=== PATIENT | male | born 1955 | race Caucasian/White ===

== ENCOUNTER 2022-04-14 12:14 | Outpatient (CLI) | payer MEDICARE, MEDICAID, SELFPAY ==
--- NOTE | 2022-04-14 | XR_ITS ---
WS: [id number] Cervical spine, AP, odontoid AP, lateral views in flexion, extension and neutral position, 04/14/2022 Clinical Data: CERVICALGIA Comparison: None. Findings: No compression fractures are seen. There is degenerative disc narrowing at C3-C4, C4-C5, C5 -C6 and C6-C7. There is anterior osteoarthritic change from C3 through C7 with loss of the normal paul dotic curvature. There is no prevertebral soft tissue swelling. The odontoid is unremarkable. The sof t tissues of the neck and the lung apices are normal. On flexion and extension there is limitation of motion but no subluxation. XR/XR cervical spine 4-5V [id number] Impression: 1. Multilevel degenerative disc narrowing and osteoarthritis. 2. Negative for subluxation but there is limitation of motion on flexion and ex tension.
== END 2022-04-14 12:15 | disposition home or self-care (01) ==
PROVIDERS: PCP Nurse Practitioner; Visit Provider Family Medicine
DX: M48.02 Spinal stenosis, cervical region (principal); M47.812 Spondylosis without myelopathy or radiculopathy, cervical region
CPT/HCPCS: 72050

== ENCOUNTER 2022-06-09 13:36 | Inpatient (IN) | payer MEDICARE, SELFPAY ==
[2022-06-09 13:48] VITALS: BP 148/93; PULSE 116; RESP 18; TEMP 36.7; O2SAT 98
--- NOTE | 2022-06-09 14:56 | ED_ITS ---
HPI - Nausea/Vomiting/Diarrhea General: Chief complaint: Nausea/Vomiting/Diarrhea Stated complaint: not taking medication Time Seen by Provider: 06/09/22 14:35 Source: patient and other (Home health nurse called and talked to immigration case worker.) Mode of arrival: EMS Limitations: other (Slight confusion) History of Present Illness: See nursing assessment. Patient reports 1 week history of nausea vomiting diarrhea and right upper quadrant abdominal pain. Denies any blood in his stool or emesis. Denies any fever. States he has not been on any recent antibiotics and has had no food poisoning or contaminated water that he knows of. Patient states he is had a home health nurse come by once a week for the last 2 to 3 weeks. When asked why he had a home health nurse, he could not give an answer as to why he is getting weekly home health nurse visits. According to the home health nurse who saw him today, report was that she found the patient with stool around the house and in the carpet. Reportedly his heat was not working as well they thought he was confused and sent to the ER for evaluation. There is also report that he was at [facility] couple weeks ago for gastritis and was sent home. Patient is also had some psychiatric issues in the past couple months. He denies any hallucinations or suicidal ideations at this time. His only complaints today are nausea vomiting diarrhea and right upper quadrant abdominal pain. Past surgical history includes appendectomy and cholecystectomy. Denies any intestinal surgery. States he quit smoking and drinking alcohol years ago. Possible history includes insulin-dependent diabetes mellitus and episodes of diarrhea. Associated nausea: Yes Associated symtoms: Reports fatigue, malaise and nausea; Denies anxiety, change in vision, chest pain, headache(s) or palpitations Review of Systems Const: Reports: fatigue and malaise; Denies: fever(s) or chills Eyes: Denies: change in vision ENMT: Denies: throat pain Card: Denies: chest pain or palpitations Resp: Denies: dyspnea or wheezing GI: Reports: abdominal pain (Right upper quadrant abdominal pain), nausea, vomiting and diarrhea (For approximately 2 weeks.); Denies: hematochezia or melena : Denies: flank pain Musc: Denies: neck pain or back pain Skin/Breast: Denies: rash or pruritus Neuro: Denies: headache(s) or numbness in extremities Psych: Denies: anxiety, depression or panic attacks Joe/Lymph: Denies: enlarged lymph nodes Physical Exam Const: COMMON NORMALS: no acute distress, patient oriented x3, no limitations and well nourished GENERAL APPEARANCE: cooperative HENMT: COMMON NORMALS: normocephalic and atraumatic HEAD & SCALP: normocephalic and atraumatic FACE & SINUS: normal facial exam Eye: COMMON NORMALS: EOMs intact bilaterally Neck/C-Spine: COMMON NORMALS: full ROM, no lymphadenopathy, supple and no meningeal signs GENERAL: Yes normal visual inspection Lymph: LYMPHATIC: no lymphadenopathy noted Chest: COMMONS NORMALS: normal inspection of the chest and normal palpation of entire chest wall CHEST: No Ecchymosis present and No rash Resp: COMMON NORMALS: normal respiratory effort, No retractions and clear to auscultation bilaterally EFFORT & INSPECTION: No respiratory distress AUSCULTATION: clear to auscultation bilaterally Cardio: COMMON NORMALS: regular rhythm and Peripheral pulses 2+ throughout JUGULAR VENOUS DISTENTION: no JVD RATE: tachycardic RHYTHM: regular rhythm PERIPHERAL PULSES: Peripheral pulses 2+ throughout GI: COMMON NORMALS: Normal to inspection, nondistended, normoactive bowel sounds present OTHER: Minimal right upper quad abdominal pain. Normoactive bowel sounds throughout. No hepatosplenomegaly. No pulsatile masses. No bruits. Obese : COMMON NORMALS: Yes no CVA tenderness BLADDER/KIDNEY EXAM: Yes no CVA tenderness Back/Pelvis: COMMON NORMALS: no CVA tenderness Extremity: COMMON NORMALS: normal to inspection, full ROM and capillary refill normal Neuro: COMMON NORMALS: patient oriented x3, CN's II-XII intact bilaterally, no focal motor deficits and no sensory deficits noted MENINGEAL SIGNS: Yes no meningeal signs Psych: COMMON NORMALS: mental status grossly normal and Normal thought process present THOUGHT PROCESS: Normal thought process present Skin: COMMON NORMALS: no rashes or lesions noted and no wounds GENERAL SKIN EXAM: no rashes or lesions noted OTHER: Several new and old ecchymosis to the abdominal wall bilaterally consistent with insulin injections. Course Vital Signs: Vital signs: Vital Signs Temperature 98.0 F 06/09/22 13:48 Pulse Rate 116 H 06/09/22 13:48 Respiratory Rate 18 06/09/22 13:48 Blood Pressure 146/94 06/09/22 17:26 Pulse Oximetry 94 06/09/22 17:26 Oxygen Delivery Me thod 06/09/22 17:26 MDM - Nausea/Vomiting/Diarrhea Medical Decision Making Dehydration, nausea vomiting diarrhea, viral gastroenteritis According to immigration case worker, patient lives alone and does not have any heat in his home. Patient was incontinent of stool at the home. According to the home hea lt nurse, patient is not able to take care of himself at home. Patient only able to void about 50 cc. With the results of the CT scan will place Woodruff catheter. Due to patient's living situation we will ask hospitalist to admit to the hospital overnight to help arrange placement. 1750: Discussed with hospitalist Dr. Yepez. Will place patient in the hospital as observation. Lab Data 06/09/22 15:15 06/09/22 15:15 Radiology Impressions Abdomen/Pelvis CT 06/09/22 16:20 IMPRESSION: 1. Severely distended urinary bladder with an estimated volume of 2100 cc. This could represent a neurogenic bladder or urinary bladder outlet obstruction. Catheterization should be considered. 2. Mild left hydronephrosis with no visible calculus. This is most likely related to the distended urinary bladder. 3. Indeterminate 2.0 cm cortical lesion in the inferior left kidney. Recommend non-emergent MRI without and with contrast or non-emergent CT without and with contrast. MRI is preferred for masses under 1.5 cm. 4. Probable small adenomas in the left adrenal gland. Consider 12 month follow-up adrenal CT. (Reference: Martha) References: Martha TORRES, et al. Management of Incidental Adrenal Masses: A White Paper of the ACR Incidental Findings Committee. J Am Alaina Radiol. 2017;14(8):5954-7002. COMMENTS: Consistent with the [employer]'s Incidental Findings Committee white paper (J Am Alaina Radiol 2018): Any incidental renal lesion less than 1 cm or classified as too small to characterize, or any incidental cystic renal lesion characterized as simple-appearing, is likely benign. No follow-up imaging is recommended for these lesions per consensus recommendations based on imaging criteria. Laboratory Results WBC 7.7 10^3/uL (4.0-10.0) 06/09/22 15:15 RBC 4.54 10^6/uL (4.1-5.3) 06/09/22 15:15 Hgb 13.6 g/dL (11.7-16.6) 06/09/22 15:15 Hct 40.7 % (42.0-52.0) L 06/09/22 15:15 MCV 89.6 fl (80-94) 06/09/22 15:15 MCH 30.0 pg (28.0-34.0) 06/09/22 15:15 MCHC 33.4 g/dL (30.0-36.0) 06/09/22 15:15 RDW 12.4 % (12.1-15.1) 06/09/22 15:15 Plt Count 234 10^3/cmm (130-400) 06/09/22 15:15 MPV 8.8 fL (7.4-10.4) 06/09/22 15:15 Neut % (Auto) 79.6 % 06/09/22 15:15 Lymph % (Auto) 10.1 % 06/09/22 15:15 [place] % (Auto) 8.2 % 06/09/22 15:15 Eos % (Auto) 1.2 % 06/09/22 15:15 Baso % (Auto) 0.5 % 06/09/22 15:15 Neut # (Auto) 6.12 10^3/uL (1.8-7.7) 06/09/22 15:15 Lymph # (Auto) 0.8 10^3/uL (0.8-4.8) 06/09/22 15:15 [place] # (Auto) 0.6 10^3/uL (0.2-0.9) 06/09/22 15:15 Eos # (Auto) 0.1 10^3/uL (0.0-0.8) 06/09/22 15:15 Baso # (Auto) 0.0 10^3/uL (0.0-0.1) 06/09/22 15:15 Nucleated RBC % (auto) 0 % 06/09/22 15:15 Nucleated RBCs # 0.0 /100WBC 06/09/22 15:15 Specimen Type Arterial 06/09/22 14:55 Sample Site Radial, right 06/09/22 14:55 ABG pH 7.50 (7.35-7.45) H 06/09/22 14:55 ABG pCO2 28.2 mmHg (35-45) L 06/09/22 14:55 ABG pO2 98.7 mmHg (80.0-100.0) 06/09/22 14:55 ABG HCO3 21.9 mmol/L (22-26) L 06/09/22 14:55 ABG O2 Saturation 97.7 06/09/22 14:55 ABG Base Excess -0.3 mmol/L (-2.0-2.0) 06/09/22 14:55 [place] Test Pos 06/09/22 14:55 A-a O2 Gradient 1.7 mmHg (5-10) L 06/09/22 14:55 Hematocrit 40.6 % (42-52) L 06/09/22 14:55 Hgb O2 Saturation 96.4 % (95-100) 06/09/22 14:55 Carboxyhemoglobin 0.6 %THgb (0.4-20.1) 06/09/22 14:55 Methemoglobin 0.8 % (0.4-1.5) 06/09/22 14:55 Total Hemoglobin 13.3 g/dL (14-18) L 06/09/22 14:55 Sodium 135.0 mmol/L (131-143) 06/09/22 14:55 Potassium 4.1 mmol/L (3.5-5.0) 06/09/22 14:55 Glucose 315.0 mg/dL (70-115) H 06/09/22 14:55 Ionized Calcium 1.1 mmol/L (1.1-1.4) 06/09/22 14:55 O2 Delivery Device Room air 06/09/22 14:55 FiO2 21.0 % 06/09/22 14:55 Elderly Companion ID glc 06/09/22 14:55 Sodium 134 mmol/L (136-145) L 06/09/22 15:15 Potassium 4.3 mmol/L (3.5-5.1) 06/09/22 15:15 Chloride 97 mmol/L (98-107) L 06/09/22 15:15 Carbon Dioxide 23 mmol/L (22-29) 06/09/22 15:15 Anion Gap 18.3 (5-19) 06/09/22 15:15 BUN 24 mg/dL (8-23) H 06/09/22 15:15 Creatinine 1.0 mg/dL (0.7-1.2) 06/09/22 15:15 GFR Calculation 74.5 mL/min (90-130) L 06/09/22 15:15 Glucose 316 mg/dL (65-115) H 06/09/22 15:15 POC Glucose 309 mg/dL (70-110) H 06/09/22 15:10 Calculated Osmolality 294 mOsm/kg (285-295) 06/09/22 15:15 Calcium 9.0 mg/dL (8.5-10.5) 06/09/22 15:15 Total Bilirubin 0.5 mg/dL (0.15-1.2) 06/09/22 15:15 AST 9 U/L (0-40) 06/09/22 15:15 ALT 27 U/L (0-41) 06/09/22 15:15 Alkaline Phosphatase 119 U/L (40-130) 06/09/22 15:15 Total Protein 6.7 g/dL (6.6-8.7) 06/09/22 15:15 Albumin 4.0 g/dL (3.5-5.2) 06/09/22 15:15 Globulin 2.7 g/dL (1.3-4.6) 06/09/22 15:15 Urine Color Yellow (Yellow) 06/09/22 16:45 Urine Appearance Cloudy (CLEAR) A 06/09/22 16:45 Urine pH 5 (5-7) 06/09/22 16:45 Ur Specific [place] 1.020 (1.005-1.030) 06/09/22 16:45 Urine Protein 1+ (Negative) H 06/09/22 16:45 Urine Glucose (UA) 4+ (Normal) H 06/09/22 16:45 Urine Ketones 2+ (Negative) H 06/09/22 16:45 Urine Blood 2+ (Negative) H 06/09/22 16:45 Urine Nitrate Negative (Negative) 06/09/22 16:45 Urine Bilirubin Neg (Negative) 06/09/22 16:45 Urine Urobilinogen Neg mg/dL (Negative) 06/09/22 16:45 Ur Leukocyte Esterase Negative (Negative) 06/09/22 16:45 Urine RBC Rare /hpf (0-2) 06/09/22 16:45 Urine WBC 0-4 /hpf (0-5) H 06/09/22 16:45 Ur Squamous Epith Cells Rare /hpf (0-5) 06/09/22 16:45 Amorphous Sediment Not Reportable 06/09/22 16:45 Urine Bacteria 4+ /hpf (NONE) H 06/09/22 16:45 Influenza Type A Ag negative (Negative) 06/09/22 16:00 Influenza Type B Ag negative (Negative) 06/09/22 16:00 SARS-CoV-2 Ag (Rapid) negative (Negative) 06/09/22 16:[address] Abd/Pel: Radiologist's impression: PROCEDURE INFORMATION: Exam: CT Abdomen And Pelvis With Contrast Exam date and time: 06/09/2022 5:00 PM Age: 66 years old Clinical indication: Nausea; Abdominal pain; Generalized; Prior surgery; Surgery date: 6+ months; Surgery type: Gb, appx; Additional info: Ruq abd pain; N/v/ TECHNIQUE: Imaging protocol: Computed tomography of the abdomen and pelvis with contrast. Radiation optimization: All CT scans at this facility use at least one of these dose optimization techniques: automated exposure control; mA and/or kV adjustment per patient size (includes targeted exams where dose is matched to clinical indication); or iterative reconstruction. Contrast material: OMNIPAQUE 350; Contrast volume: 95 ml; Contrast route: INTRAVENOUS (IV);? COMPARISON: No relevant prior studies available. RADIATION DOSE METRICS: Total DLP (mGy-cm): 975.6 FINDINGS: Liver: Normal. No mass. Gallbladder and bile ducts: Cholecystectomy. The bile ducts are normal. Pancreas: Atrophic pancreatic tail. Spleen: Normal. No splenomegaly. Adrenal glands: Multiple small nodules in the left adrenal gland, the largest measuring 1.2 cm with Hounsfield units measuring 41. The right adrenal is normal. Kidneys and ureters: Round hypodensity in the superior left kidney is too small to characterize but is most likely a cyst. 2.0 cm cortical lesion in the inferior left kidney has a density of 60 Hounsfield units. Mild left hydronephrosis. Mild columning of the left ureter. No calculus visualized. The right kidney and collecting system are unremarkable. Stomach and bowel: 1.4 cm intraluminal fat density lipoma in the proximal sigmoid colon. The colon is otherwise unremarkable. The stomach and small bowel are unremarkable. No wall thickening or obstruction. Appendix:? The appendix is absent. Intraperitoneal space: Unremarkable. No free air. No significant fluid collection. Vasculature: Arterial calcifications. No aneurysm. Lymph nodes: Unremarkable. No enlarged lymph nodes. Urinary bladder: Severely distended urinary bladder measuring 19.9 cm in length and with an estimated volume of 2100 cc. No wall thickening. Reproductive: The prostate is normal in size. Bones/joints: Leftward curvature of the lumbar spine. Degenerative changes of the spine. No fracture identified. Soft tissues: Fat containing umbilical hernia. CT/CT abdomen pelvis w con* [id number] IMPRESSION: 1. Severely distended urinary bladder with an estimated volume of 2100 cc.? This could represent a neurogenic bladder or urinary bladder outlet obstruction. Catheterization should be considered. 2. Mild left hydronephrosis with no visible calculus.? This is most likely related to the distended urinary bladder. 3. Indeterminate 2.0 cm cortical lesion in the inferior left kidney. Recommend non-emergent MRI without and with contrast or non-emergent CT without and with contrast. MRI is preferred for masses under 1.5 cm. 4. Probable small adenomas in the left adrenal gland. Consider 12 month follow-up adrenal CT. (Reference: Martha) ? References: Martha TORRES, et al. Management of Incidental Adrenal Masses: A White Paper of the ACR Incidental Findings Committee. J Am Alaina Radiol. 2017;14(8):0096-8383. ? COMMENTS: Consistent with the [employer]'s Incidental Findings Committee white paper (J Am Alaina Radiol 2018): Any incidental renal lesion less than 1 cm or classified as too small to characterize, or any incidental cystic renal lesion characterized as simple-appearing, is likely benign. No follow-up imaging is recommended for these lesions per consensus recommendations based on imaging criteria. ? Dictated By: Neil Spencer Signed By: Neil Spencer Signed Date/Time: 06/09/22 0402 ABG Data ABG Interpretation 1: ABG results: No acidosis. pH is normal. Glucose 315 Discharge Plan Discharge Patient Disposition: Placed in Observation Clinical Impression: Gastroenteritis, Dehydration, Type 2 diabetes mellitus with hyperglycemia, with long-term current use of insulin, Acute urinary retention Coding Level of Care Code ED Repairer Evaporator for Chg Fwd History Comprehensive Exam Comprehensive Medical Decision Making Moderate Complexity
[2022-06-09 15:05] LABS: ABG PCO2 28.2 mmHg (35-45); Alveolar-Arterial Oxygen Gradi 1.7 mmHg (5-10); Arterial Blood Gas Hematocrit 40.6 % (42-52); Base Excess ABG -0.3 mmol/L (-2.0-2.0); Blood Gas Allen Test Pos; Blood Gas Operator Identificat glc; Blood Gas Sample Site Radial, right; Blood Gas Sample Type Arterial; Carboxyhemoglobin 0.6 %THgb (0.4-20.1); HCO3 ABG 21.9 mmol/L (22-26); HGB O2 Sat 96.4 % (95-100); Ionized Calcium Level - ABG 1.1 mmol/L (1.1-1.4); Methemoglobin 0.8 % (0.4-1.5); Oxygen Device ROOM AIR; Oxygen Saturation ABG 97.7; PO2 ABG 98.7 mmHg (80.0-100.0); Potassium Level - ABG 4.1 mmol/L (3.5-5.0); Total Hemoglobin 13.3 g/dL (14-18)
[2022-06-09] MEDS: sodium chloride 0.9% 1,000 ML 999 ML IV ×2 (15:12→17:13)
[2022-06-09] MEDS: ondansetron 2 mg/ML SDV 2 mL 4 MG IVP (15:12)
[2022-06-09 15:17] LABS: Glucose Point of Care 309 mg/dL (70-110)
--- NOTE | 2022-06-09 15:18 | PC.PHAR ---
pt states he takes care of his own medications but states he is unsure of all the names of his medications-pt did verify how much insulin he uses-[facility] states the pt was on aripiprazole 15mg daily states was changed to 10mg daily on 06/02/22-[facility] states the pts hydralazine 10mg q12h was dced on 05/18/[address] sweetie tian [phone]-notes are made in the pharmacy comments
[2022-06-09 15:40] LABS: Basophils % 0.5 %; Eosinophils # 0.1 10^3/uL (0.0-0.8); Eosinophils % 1.2 %; Hematocrit 40.7 % (42.0-52.0); Hemoglobin 13.6 g/dL (11.7-16.6); Lymphocytes # 0.8 10^3/uL (0.8-4.8); Lymphocytes % 10.1 %; Mean Corpuscular HGB Conc 33.4 g/dL (30.0-36.0); Mean Corpuscular Volume 89.6 fl (80-94); Mean Platelet Volume 8.8 fL (7.4-10.4); Monocytes # 0.6 10^3/uL (0.2-0.9); Monocytes % 8.2 %; Neutrophils # 6.12 10^3/uL (1.8-7.7); Neutrophils % 79.6 %; Nucleated Red Blood Cells % 0 %; Platelet Count 234 10^3/cmm (130-400); Red Blood Count 4.54 10^6/uL (4.1-5.3); Red Cell Distribution Width 12.4 % (12.1-15.1); White Blood Count 7.7 10^3/uL (4.0-10.0)
[2022-06-09] MEDS: insulin regular-human 100 units/1 mL 4 UNIT IVP (15:52)
[2022-06-09 15:56] LABS: Alanine Aminotransferase 27 U/L (0-41); Alkaline Phosphatase 119 U/L (40-130); Anion Gap 18.3 (5-19); Aspartate Amino Transferase 9 U/L (0-40); Blood Urea Nitrogen 24 mg/dL (8-23); Carbon Dioxide 23 mmol/L (22-29); Chloride 97 mmol/L (98-107); Globulin 2.7 g/dL (1.3-4.6); Glomerular Filtration Rate 74.5 mL/min (90-130); Glucose 316 mg/dL (65-115); Osmolality Calculated 294 mOsm/kg (285-295); Potassium 4.3 mmol/L (3.5-5.1); Sodium 134 mmol/L (136-145); Total Bilirubin 0.5 mg/dL (0.15-1.2); Total Protein 6.7 g/dL (6.6-8.7)
[2022-06-09 15:57] VITALS: BP 157/81; O2SAT 97
--- NOTE | 2022-06-09 16:20 | CTR_ITS ---
PROCEDURE INFORMATION: Exam: CT Abdomen And Pelvis With Contrast Exam date and time: 06/09/2022 5:00 PM Age: 66 years old Clinical indication: Nausea; Abdominal pain; Generalized; Prior surgery; Surgery date: 6+ months; Surgery type: Gb, appx; Additional info: Ruq abd pain; N/v/ TECHNIQUE: Imaging protocol: Computed tomography of the abdomen and pelvis with contrast. Radiation optimization: All CT scans at this facility use at least one of these dose optimization techniques: automated exposure control; mA and/or kV adjustment per patient size (includes targeted exams where dose is matched to clinical indication); or iterative reconstruction. Contrast material: OMNIPAQUE 350; Contrast volume: 95 ml; Contrast route: INTRAVENOUS (IV); COMPARISON: No relevant prior studies available. RADIATION DOSE METRICS: Total DLP (mGy-cm): 975.6 FINDINGS: Liver: Normal. No mass. Gallbladder and bile ducts: Cholecystectomy. The bile ducts are normal. Pancreas: Atrophic pancreatic tail. Spleen: Normal. No splenomegaly. Adrenal glands: Multiple small nodules in the left adrenal gland, the largest measuring 1.2 cm with Hounsfield units measuring 41. The right adrenal is normal. Kidneys and ureters: Round hypodensity in the superior left kidney is too small to characterize but is most likely a cyst. 2.0 cm cortical lesion in the inferior left kidney has a density of 60 Hounsfield units. Mild left hydronephrosis. Mild columning of the left ureter. No calculus visualized. The right kidney and collecting system are unremarkable. Stomach and bowel: 1.4 cm intraluminal fat density lipoma in the proximal sigmoid colon. The colon is otherwise unremarkable. The stomach and small bowel are unremarkable. No wall thickening or obstruction. Appendix: The appendix is absent. Intraperitoneal space: Unremarkable. No free air. No significant fluid collection. Vasculature: Arterial calcifications. No aneurysm. Lymph nodes: Unremarkable. No enlarged lymph nodes. Urinary bladder: Severely distended urinary bladder measuring 19.9 cm in length and with an estimated volume of 2100 cc. No wall thickening. Reproductive: The prostate is normal in size. Bones/joints: Leftward curvature of the lumbar spine. Degenerative changes of the spine. No fracture identified. Soft tissues: Fat containing umbilical hernia. CT/CT abdomen pelvis w con* [id number] IMPRESSION: 1. Severely distended urinary bladder with an estimated volume of 2100 cc. This could represent a neurogenic bladder or urinary bladder outlet obstruction. Catheterization should be considered. 2. Mild left hydronephrosis with no visible calculus. This is most likely related to the distended urinary bladder. 3. Indeterminate 2.0 cm cortical lesion in the inferior left kidney. Recommend non-emergent MRI without and with contrast or non-emergent CT without and with contrast. MRI is preferred for masses under 1.5 cm. 4. Probable small adenomas in the left adrenal gland. Consider 12 month follow-up adrenal CT. (Reference: Martha) References: Martha TORRES, et al. Management of Incidental Adrenal Masses: A White Paper of the ACR Incidental Findings Committee. J Am Alaina Radiol. 2017;14(8):7492-1708. COMMENTS: Consistent with the [employer]'s Incidental Findings Committee white paper (J Am Alaina Radiol 2018): Any incidental renal lesion less than 1 cm or classified as too small to characterize, or any incidental cystic renal lesion characterized as simple-appearing, is likely benign. No follow-up imaging is recommended for these lesions per consensus recommendations based on imaging criteria.
[2022-06-09 17:02] LABS: Influenza A by IFA negative (Negative); Influenza B by IFA negative (Negative); SARS Covid-2 Antigen negative (Negative)
[2022-06-09 17:15] LABS: Bilirubin Urine Neg (Negative); Blood Urine 2+ (Negative); Glucose Urine UA 4+ (Normal); Ketones Urine 2+ (Negative); Leukocyte Esterase Urine Negative (Negative); Nitrate Urine Negative (Negative); Protein Urine 1+ (Negative); Urine Appearance Cloudy (CLEAR); Urine Color Yellow (Yellow); Urobilinogen Urine Neg (Negative); pH Urine 5 (5-7)
[2022-06-09] MEDS: iohexol 350 mg/mL 500 mL Btl (per mL) IV (17:15)
[2022-06-09 17:26] VITALS: BP 146/94; O2SAT 94
[2022-06-09 17:49] LABS: Bacteria Urine 4+ /hpf; RBC Urine RARE /hpf (0-2); Squamous Epithelial Cell Urine RARE /hpf (0-5); WBC Urine 0-4 /hpf (0-5)
[2022-06-09 17:50] LABS: Add Urine Culture? Yes
[2022-06-09 18:34] VITALS: BP 139/91; O2SAT 97
--- NOTE | 2022-06-09 18:35 | XRR_ITS ---
PROCEDURE INFORMATION: Exam: XR Chest Exam date and time: 06/09/2022 6:46 PM Age: 66 years old Clinical indication: Shortness of breath; Additional info: Evaluate for pneumonia TECHNIQUE: Imaging protocol: Radiologic exam of the chest. Views: 1 view. COMPARISON: CT abdomen pelvis w con* [id number] 06/09/2022 4:50 PM FINDINGS: Lungs: Unremarkable. No consolidation. Pleural spaces: Unremarkable. No pleural effusion. No pneumothorax. Heart/Mediastinum: Unremarkable. No cardiomegaly. Bones/joints: Unremarkable. XR/XR chest 1V portable [id number] IMPRESSION: No acute findings.
--- NOTE | 2022-06-09 18:48 | PM.HP ---
Providers/Chief Complaint Admitting Physician: Ani Yepez MD Primary Care Provider: Mia Lua NP Chief Complaint: not taking medication History of Present Illness Gadiel Hoskins is a 66 year old male with a past medical history of diabetes mellitus, hypertension, brought to the hospital today after called by his home health personnel. Reportedly patient was very weak, unable to ambulate, he has been urinating and defecating on the floor of his house for the past several days. He was recently admitted at [facility] for what appears to be abdominal issues. Reports this to be diarrhea and incontinence. Estimates he has loose watery bowel movements at least 4-5 times a day. He does not know what kind of work-up was done. Unable to contribute significantly to his history at this time. He is noted to be dehydrated, significantly weak. Unable to lift his legs off the bed at the time of my assessment. He also has urinary retention with over 2 L retained in his bladder. A Woodruff was placed upon arrival into the emergency room. He has several areas of scrapes and bruises all over his body, states that he falls very frequently at home. States that he last peed yesterday. Unable to tell me when he last ambulated. States that he has been laying on the floor for most of the day. Denies any recent chest pain dyspnea or palpitations. Denies any loss of consciousness at home. Based on his medications it appears he may have some degree of dementia. He lives by himself. Has no sort of help around. Review of Systems General: Reports: 10 or more systems reviewed and unremarkable except in HPI and below Const: Denies: fever(s), chills or body aches Eyes: Denies: change in vision, blurry vision or photophobia ENMT: Reports: hoarseness; Denies: throat pain, enlarged tonsils, odynophagia or nasal congestion Card: Denies: chest pain, palpitations, irregular heart rhythm, edema, swelling of feet/ankles, lightheadedness, pre-syncope, dyspnea on exertion or orthopnea Resp: Denies: dyspnea, productive cough, non-productive cough, wheezing, stridor, pain on inspiration, change in phlegm color, hemoptysis or chest congestion GI: Denies: abdominal pain, nausea, vomiting, hematemesis, coffee ground emesis, dysphagia, heartburn, diarrhea, constipation, GI cramping, change in stool character, hematochezia or melena : Denies: flank pain, dysuria, urinary frequency, urinary urgency, urinary hesitancy or hematuria Musc: Denies: neck pain, back pain, extremity pain, joint swelling, joint warmth or deformity Neuro: Denies: headache(s), numbness in extremities, weakness in extremities, sensory changes, difficulty walking, frequent falls, dizziness, vertigo, behavioral changes, Slurred speech present or seizure-like activity Psych: Denies: anxiety, depression, suicidal ideation or homicidal ideation Endo: Denies: polyuria, polydipsia, tired all the time, cold intolerance or hot flashes Joe/Lymph: Denies: easy bruising or easy bleeding Medications/Allergies Home Medications Medication Instructions Recorded Confirmed Last Taken Type aripiprazole 10 mg tablet 10 mg PO DAILY 06/09/22 06/09/22 Unknown History aspirin 81 mg tablet,delayed 81 mg PO DAILY 06/09/22 06/09/22 Unknown History release atorvastatin 40 mg tablet 40 mg PO QPM 06/09/22 06/09/22 Unknown History dicyclomine 10 mg capsule 20 mg PO QID PRN Cramps 06/09/22 06/09/22 Unknown History donepezil 10 mg tablet 10 mg PO BEDTIME 06/09/22 06/09/22 Unknown History duloxetine 60 mg capsule,delayed 60 mg PO BID 06/09/22 06/09/22 Unknown History release famotidine 20 mg tablet 20 mg PO BID 06/09/22 06/09/22 Unknown History gabapentin 300 mg capsule 600 mg PO TID 06/09/22 06/09/22 Unknown History hydrocortisone 1 % topical cream 1 applic topical BID 06/09/22 06/09/22 Unknown History insulin aspart U-100 100 unit/mL See Rx Instructions .Route .COMPLEX 06/09/22 06/09/22 1 Week Ago History (3 mL) subcutaneous pen (Novolog ~06/02/22 Flexpen U-100 Insulin aspart) insulin glargine 100 unit/mL (3 See Rx Instructions .Route .COMPLEX 06/09/22 06/09/22 1 Week Ago History mL) subcutaneous pen (Lantus ~06/02/22 Solostar U-100 Insulin) linagliptin 5 mg tablet (Tradjenta) 5 mg PO DAILY 06/09/22 06/09/22 Unknown History meloxicam 7.5 mg tablet 7.5 mg PO DAILY 06/09/22 06/09/22 Unknown History mirtazapine 15 mg tablet 15 mg PO BEDTIME 06/09/22 06/09/22 Unknown History mupirocin 2 % topical ointment 1 applic topical . DIRECTED 06/09/22 06/09/22 Unknown History nifedipine 30 mg tablet,extended 30 mg PO DAILY 06/09/22 06/09/22 Unknown History release 24 hr pantoprazole 40 mg tablet,delayed 40 mg PO DAILY 06/09/22 06/09/22 Unknown History release quetiapine 100 mg tablet 100 mg PO BEDTIME 06/09/22 06/09/22 Unknown History tamsulosin 0.4 mg capsule 0.8 mg PO QPM 06/09/22 06/09/22 Unknown History Allergies Allergy/AdvReac Type Severity Reaction Status Date / Time morphine Allergy Unknown Verified 06/09/22 14:59 PFSH Acute PFSH: Medical History (Updated 06/09/22 @ 19:10 by Ani Yepez MD) Hypertension Type 2 diabetes mellitus with hyperglycemia, with long-term current use of insulin Vitals/I&O/Wt Last Vital Signs Temp 98.0 F 06/09/22 13:48 Pulse 116 H 06/09/22 13:48 Resp 18 06/09/22 13:48 BP 139/91 06/09/22 18:34 Pulse Ox 97 06/09/22 18:34 O2 Del Method 06/09/22 18:34 06/09/22 06/09/22 06/09/22 06:59 14:59 22:59 Intake Total 1000 / 1000 Balance 1000 / 1000 Weight last 48 hrs Weight 96.162 kg Physical Exam Narrative: General: No acute distress, AO x3 dehydrated, appears to be very deconditioned. HEENT: PERRLA, pupils bilaterally equal and reactive, pallors not present Chest: Normal vesicular breath sounds, no added sounds, equal good air entry bilaterally CVS: S1-S2 regular, no murmurs, no tachycardia, no gallops, no rubs Abdomen: Soft, nontender, no organomegaly, bowel sounds present Neuro: Unable to lift bilateral lower extremities off the bed. Earlier while placing a Woodruff catheter he was able to lift his buttocks up against gravity and flex his legs. However currently unable to lift his legs off the bed. States he does not remember when he last walked. Extremities: Multiple scrapes over the body including over the head.. Urinary Catheter Management: Woodruff: Cath Placed During This Visit: yes Reason for Continuing Indwelling Catheter: Acute Urinary Retention or Obstruction Urinary Catheter Date of Insertion: 06/09/22 Urinary Catheter Time of Insertion: 18:35 Data 06/09/22 15:15 06/09/22 15:15 Micro: Radiology Impressions Abdomen/Pelvis CT 06/09/22 16:20 IMPRESSION: 1. Severely distended urinary bladder with an estimated volume of 2100 cc. This could represent a neurogenic bladder or urinary bladder outlet obstruction. Catheterization should be considered. 2. Mild left hydronephrosis with no visible calculus. This is most likely related to the distended urinary bladder. 3. Indeterminate 2.0 cm cortical lesion in the inferior left kidney. Recommend non-emergent MRI without and with contrast or non-emergent CT without and with contrast. MRI is preferred for masses under 1.5 cm. 4. Probable small adenomas in the left adrenal gland. Consider 12 month follow-up adrenal CT. (Reference: Martha) References: Martha TORRES, et al. Management of Incidental Adrenal Masses: A White Paper of the ACR Incidental Findings Committee. J Am Alaina Radiol. 2017;14(8):7573-8642. COMMENTS: Consistent with the [employer]'s Incidental Findings Committee white paper (J Am Alaina Radiol 2018): Any incidental renal lesion less than 1 cm or classified as too small to characterize, or any incidental cystic renal lesion characterized as simple-appearing, is likely benign. No follow-up imaging is recommended for these lesions per consensus recommendations based on imaging criteria. Chest X-Ray 06/09/22 18:35 IMPRESSION: No acute findings. Laboratory Results WBC 7.7 10^3/uL (4.0-10.0) 06/09/22 15:15 RBC 4.54 10^6/uL (4.1-5.3) 06/09/22 15:15 Hgb 13.6 g/dL (11.7-16.6) 06/09/22 15:15 Hct 40.7 % (42.0-52.0) L 06/09/22 15:15 MCV 89.6 fl (80-94) 06/09/22 15:15 MCH 30.0 pg (28.0-34.0) 06/09/22 15:15 MCHC 33.4 g/dL (30.0-36.0) 06/09/22 15:15 RDW 12.4 % (12.1-15.1) 06/09/22 15:15 Plt Count 234 10^3/cmm (130-400) 06/09/22 15:15 MPV 8.8 fL (7.4-10.4) 06/09/22 15:15 Neut % (Auto) 79.6 % 06/09/22 15:15 Lymph % (Auto) 10.1 % 06/09/22 15:15 [place] % (Auto) 8.2 % 06/09/22 15:15 Eos % (Auto) 1.2 % 06/09/22 15:15 Baso % (Auto) 0.5 % 06/09/22 15:15 Neut # (Auto) 6.12 10^3/uL (1.8-7.7) 06/09/22 15:15 Lymph # (Auto) 0.8 10^3/uL (0.8-4.8) 06/09/22 15:15 [place] # (Auto) 0.6 10^3/uL (0.2-0.9) 06/09/22 15:15 Eos # (Auto) 0.1 10^3/uL (0.0-0.8) 06/09/22 15:15 Baso # (Auto) 0.0 10^3/uL (0.0-0.1) 06/09/22 15:15 Nucleated RBC % (auto) 0 % 06/09/22 15:15 Nucleated RBCs # 0.0 /100WBC 06/09/22 15:15 Specimen Type Arterial 06/09/22 14:55 Sample Site Radial, right 06/09/22 14:55 ABG pH 7.50 (7.35-7.45) H 06/09/22 14:55 ABG pCO2 28.2 mmHg (35-45) L 06/09/22 14:55 ABG pO2 98.7 mmHg (80.0-100.0) 06/09/22 14:55 ABG HCO3 21.9 mmol/L (22-26) L 06/09/22 14:55 ABG O2 Saturation 97.7 06/09/22 14:55 ABG Base Excess -0.3 mmol/L (-2.0-2.0) 06/09/22 14:55 Refugio Test Pos 06/09/22 14:55 A-a O2 Gradient 1.7 mmHg (5-10) L 06/09/22 14:55 Hematocrit 40.6 % (42-52) L 06/09/22 14:55 Hgb O2 Saturation 96.4 % (95-100) 06/09/22 14:55 Carboxyhemoglobin 0.6 %THgb (0.4-20.1) 06/09/22 14:55 Methemoglobin 0.8 % (0.4-1.5) 06/09/22 14:55 Total Hemoglobin 13.3 g/dL (14-18) L 06/09/22 14:55 Sodium 135.0 mmol/L (131-143) 06/09/22 14:55 Potassium 4.1 mmol/L (3.5-5.0) 06/09/22 14:55 Glucose 315.0 mg/dL (70-115) H 06/09/22 14:55 Ionized Calcium 1.1 mmol/L (1.1-1.4) 06/09/22 14:55 O2 Delivery Device Room air 06/09/22 14:55 FiO2 21.0 % 06/09/22 14:55 Etl Database Developer ID glc 06/09/22 14:55 Sodium 134 mmol/L (136-145) L 06/09/22 15:15 Potassium 4.3 mmol/L (3.5-5.1) 06/09/22 15:15 Chloride 97 mmol/L (98-107) L 06/09/22 15:15 Carbon Dioxide 23 mmol/L (22-29) 06/09/22 15:15 Anion Gap 18.3 (5-19) 06/09/22 15:15 BUN 24 mg/dL (8-23) H 06/09/22 15:15 Creatinine 1.0 mg/dL (0.7-1.2) 06/09/22 15:15 GFR Calculation 74.5 mL/min (90-130) L 06/09/22 15:15 Glucose 316 mg/dL (65-115) H 06/09/22 15:15 POC Glucose 309 mg/dL (70-110) H 06/09/22 15:10 Calculated Osmolality 294 mOsm/kg (285-295) 06/09/22 15:15 Calcium 9.0 mg/dL (8.5-10.5) 06/09/22 15:15 Total Bilirubin 0.5 mg/dL (0.15-1.2) 06/09/22 15:15 AST 9 U/L (0-40) 06/09/22 15:15 ALT 27 U/L (0-41) 06/09/22 15:15 Alkaline Phosphatase 119 U/L (40-130) 06/09/22 15:15 Total Protein 6.7 g/dL (6.6-8.7) 06/09/22 15:15 Albumin 4.0 g/dL (3.5-5.2) 06/09/22 15:15 Globulin 2.7 g/dL (1.3-4.6) 06/09/22 15:15 Urine Color Yellow (Yellow) 06/09/22 16:45 Urine Appearance Cloudy (CLEAR) A 06/09/22 16:45 Urine pH 5 (5-7) 06/09/22 16:45 Ur Specific Clive 1.020 (1.005-1.030) 06/09/22 16:45 Urine Protein 1+ (Negative) H 06/09/22 16:45 Urine Glucose (UA) 4+ (Normal) H 06/09/22 16:45 Urine Ketones 2+ (Negative) H 06/09/22 16:45 Urine Blood 2+ (Negative) H 06/09/22 16:45 Urine Nitrate Negative (Negative) 06/09/22 16:45 Urine Bilirubin Neg (Negative) 06/09/22 16:45 Urine Urobilinogen Neg mg/dL (Negative) 06/09/22 16:45 Ur Leukocyte Esterase Negative (Negative) 06/09/22 16:45 Urine RBC Rare /hpf (0-2) 06/09/22 16:45 Urine WBC 0-4 /hpf (0-5) H 06/09/22 16:45 Ur Squamous Epith Cells Rare /hpf (0-5) 06/09/22 16:45 Amorphous Sediment Not Reportable 06/09/22 16:45 Urine Bacteria 4+ /hpf (NONE) H 06/09/22 16:45 Influenza Type A Ag negative (Negative) 06/09/22 16:00 Influenza Type B Ag negative (Negative) 06/09/22 16:00 SARS-CoV-2 Ag (Rapid) negative (Negative) 06/09/22 16:00 A&P Assessment and plan (1) Type 2 diabetes mellitus with hyperglycemia, with long-term current use of insulin: (2) Dehydration: (3) Acute urinary retention: (4) Physical deconditioning: (5) Recurrent falls: Plan Patient with HPI as noted above. Significant findings are urinary retention of over 2 L, patient is unable to ambulate or walk at this time. Unable to lift his legs off the bed. This may be related to severe muscular deconditioning, however given urinary retention and fecal fecal incontinence together with lower extremity weakness and lower back pain who will evaluate for any cord compression. CT of the lumbar spine has been ordered. Additionally obtain CT head given history of recurrent falls and noted bruising and scrapes over the head. This will additionally evaluate for CVA. Unclear circumstances of recent admission at [facility]. Appear to be related to some abdominal issues. Currently endorsing multiple episodes of diarrhea per day and fecal incontinence. Check C. difficile PCR and enteric panel. If C. difficile negative may be able to use loperamide. Obtain records from [facility] regarding recent admission Check CPK to evaluate for rhabdomyolysis as patient states he is just been laying on the floor for many days. Check TSH Check alcohol level and urine drug screen Insulin sliding scale high-dose Continue his home medications including aspirin, dicyclomine, donepezil, duloxetine, gabapentin and mirtazapine. PT OT evaluation and treatment. Full code Disposition: Patient appears to be an extremely high fall risk. He has multiple scrapes and bruises all over which appears to corroborate his history of recurrent falls. Per home health patient's home had no heat. He lives by himself and appears to be high risk for adverse outcomes of discharged without appropriate disposition planning. Attestations Medical Necessity Statement*: Anticipate greater than 2 midnight admission given what appears to be muscle deconditioning, recurrent falls, will need appropriate disposition planning, therapy assessments, needs evaluation for acute onset of urinary retention and fecal incontinence with back pain. Coding Level of Care Code Acute Gluer Machine Setup Operator for Babita Fwclaudia Diagnoses Type 2 diabetes mellitus with hyperglycemia, with long-term current use of insulin E11.65; Z79.4 Dehydration E86.0 Acute urinary retention R33.8 Physical deconditioning R53.81 Recurrent falls R29.6
--- NOTE | 2022-06-09 18:59 | CTR_ITS ---
PROCEDURE INFORMATION: Exam: CT Lumbar Spine Without Contrast Exam date and time: 06/09/2022 7:24 PM Age: 66 years old Clinical indication: Dorslagia and weakness and other: Bowel incontinence; Additional info: Evalute for compression fractures, back pain, urinary and bowel incontinence. Le weakness, TECHNIQUE: Imaging protocol: Computed tomography of the lumbar spine without contrast. Radiation optimization: All CT scans at this facility use at least one of these dose optimization techniques: automated exposure control; mA and/or kV adjustment per patient size (includes targeted exams where dose is matched to clinical indication); or iterative reconstruction. COMPARISON: CT abdomen pelvis w con* [id number] 06/09/2022 4:50 PM RADIATION DOSE METRICS: Total DLP (mGy-cm): 960 FINDINGS: Bones/joints: L4-L5 productive degenerative changes resulting in moderate to severe spinal canal and severe bilateral foraminal narrowing. L1-L2: No significant disc protrusion. No severe spinal canal stenosis. No significant neural foraminal narrowing. L2-L3: L2-L3 broad-based disc bulge with mild spinal canal and bilateral foraminal narrowing. L3-L4: L3-L4 productive degenerative changes resulting in mild spinal canal and moderate to severe bilateral foraminal narrowing. L4-L5: See Bones/joints finding. L5-S1: L5/S1 degenerative changes resulting in moderate to severe bilateral foraminal narrowing. Soft tissues: Unremarkable. CT/CT lumbar spine wo con* [id number] IMPRESSION: 1. Negative for fracture or dislocation. 2. L2-L3 broad-based disc bulge with mild spinal canal and bilateral foraminal narrowing. 3. L3-L4 productive degenerative changes resulting in mild spinal canal and moderate to severe bilateral foraminal narrowing. 4. L4-L5 productive degenerative changes resulting in moderate to severe spinal canal and severe bilateral foraminal narrowing. 5. L5/S1 degenerative changes resulting in moderate to severe bilateral foraminal narrowing.
--- NOTE | 2022-06-09 18:59 | CTR_ITS ---
PROCEDURE INFORMATION: Exam: CT Head Without Contrast Exam date and time: 06/09/2022 7:21 PM Age: 66 years old Clinical indication: Altered mental status/memory loss; Prior surgery; Additional info: B/l le weakness, recurrent falls, evaluate for CVA TECHNIQUE: Imaging protocol: Computed tomography of the head without contrast. Radiation optimization: All CT scans at this facility use at least one of these dose optimization techniques: automated exposure control; mA and/or kV adjustment per patient size (includes targeted exams where dose is matched to clinical indication); or iterative reconstruction. COMPARISON: CR XR cervical spine 4-5V [id number] 04/14/2022 1:04 PM RADIATION DOSE METRICS: Total DLP (mGy-cm): 1075.78 FINDINGS: Brain: Mild diffuse cortical volume loss. Moderate hypodensities in supratentorial periventricular and subcortical white matter, consistent with microangiopathy. No intracranial hemorrhage. Small chronic lacunar infarcts in the bilateral caudate heads. Chronic encephalomalacia in the right occipital lobe. Cerebral ventricles: No ventriculomegaly. Paranasal sinuses: Visualized sinuses are unremarkable. No fluid levels. Mastoid air cells: Visualized mastoid air cells are well aerated. Orbital cavities: Prior cataract surgery. Bones/joints: Unremarkable. No acute fracture. Soft tissues: Unremarkable. Vasculature: No hyperdense artery. CT/CT head wo con* [id number] IMPRESSION: No acute intracranial abnormality.
[2022-06-09 19:50] LABS: Creatine Phosphokinase 96 U/L (39-308)
[2022-06-09 19:53] LABS: Alcohol Level < 10 mg/dL (0-10)
[2022-06-09 20:00] VITALS: BP 173/86; PULSE 103; RESP 22; TEMP 36.9; O2SAT 96
[2022-06-09 20:22] LABS: Amphetamines Screen Urine Negative (Negative); Barbiturates Screen Urine Negative (Negative); Benzodiazepines Screen Urine Negative (Negative); Cocaine Screen Urine Negative (Negative); Opiate Screen Urine Negative (Negative); PCP Screen Urine Negative (Negative); THC Screen Urine Negative (Negative)
[2022-06-09] MEDS: enoxaparin 40 mg/0.4 mL Syringe SUBCUT (21:47)
[2022-06-09] MEDS: gabapentin 300 mg Capsule 600 MG PO (21:48)
[2022-06-09] MEDS: mirtazapine 15 mg Tablet PO (21:49)
[2022-06-09] MEDS: donepezil 5 MG Tablet 10 MG PO (21:49)
[2022-06-09] MEDS: quetiapine 100 mg Tablet PO (21:49)
[2022-06-09 22:00] LABS: Glucose Point of Care 230 mg/dL (70-110)
[2022-06-09] MEDS: insulin lispro 100 unit/1 mL SUBCUT (22:09)
[2022-06-10] VITALS (10 sets, daily range): BP systolic 106–145; BP diastolic 66–80; PULSE 84–102; RESP 16–20; TEMP 36.6–37.1; O2SAT 92–97
[2022-06-10 04:49] LABS: Estmated Average Glucose 217; Hemoglobin A1C 9.2 % (4.0-6.0)
[2022-06-10 05:03] LABS: Anion Gap 9.3 (5-19); Blood Urea Nitrogen 21 mg/dL (8-23); Calcium 8.1 mg/dL (8.5-10.5); Carbon Dioxide 27 mmol/L (22-29); Chloride 104 mmol/L (98-107); Glomerular Filtration Rate 74.5 mL/min (90-130); Glucose 143 mg/dL (65-115); Osmolality Calculated 289 mOsm/kg (285-295); Potassium 3.3 mmol/L (3.5-5.1); Sodium 137 mmol/L (136-145); Thyroid Stimulating Hormone 0.69 uIU/mL (0.27-4.20)
[2022-06-10 05:12] LABS: Basophils # 0.1 10^3/uL (0.0-0.1); Eosinophils # 0.2 10^3/uL (0.0-0.8); Eosinophils % 3.6 %; Hematocrit 32.1 % (42.0-52.0); Hemoglobin 10.5 g/dL (11.7-16.6); Lymphocytes # 1.3 10^3/uL (0.8-4.8); Lymphocytes % 22.1 %; Mean Corpuscular HGB Conc 32.7 g/dL (30.0-36.0); Mean Corpuscular Hemoglobin 29.4 pg (28.0-34.0); Mean Corpuscular Volume 89.9 fl (80-94); Mean Platelet Volume 8.8 fL (7.4-10.4); Monocytes # 0.6 10^3/uL (0.2-0.9); Monocytes % 9.8 %; Neutrophils # 3.65 10^3/uL (1.8-7.7); Neutrophils % 63.2 %; Nucleated Red Blood Cells % 0 %; Platelet Count 179 10^3/cmm (130-400); Red Blood Count 3.57 10^6/uL (4.1-5.3); Red Cell Distribution Width 12.4 % (12.1-15.1); White Blood Count 5.8 10^3/uL (4.0-10.0)
[2022-06-10 06:21] LABS: Glucose Point of Care 138 mg/dL (70-110)
[2022-06-10] MEDS: aspirin 81 mg EC Tablet PO (08:58)
[2022-06-10] MEDS: duloxetine 60 mg Capsule PO ×2 (08:58→16:44)
[2022-06-10] MEDS: ARIPiprazole 10 mg Tablet PO (08:58)
[2022-06-10] MEDS: gabapentin 300 mg Capsule 600 MG PO ×3 (08:58→21:33)
[2022-06-10] MEDS: pantoprazole DR 40 mg Tablet PO (08:59)
[2022-06-10] MEDS: NIFEdipine ER (24 hr) 30 mg Tablet PO (08:59)
--- NOTE | 2022-06-10 11:40 | MR_ITS ---
WS: [id number] MRI LUMBAR SPINE NONCONTRAST TECHNIQUE: Sagittal T1, T2 and STIR imaging. Axial T1 and T2 imaging. CLINICAL INFORMATION: evaluate for cord compression COMPARISON: CT lumbar June 09, 2022 FINDINGS: Mild lumbar curve. No acute compression. Degenerative endplate edema at L3-L4 with disc desiccation. Severe central canal stenosis L3-L4 and moderate L4-L5 due to disc bulging with facet arthropathy and ligamentum flavum hypertrophy. Dorsal epidural fat contributes to stenosis L1-L2: Mild facet arthropathy. Spinal canal and foramen are patent. L2-L3: Mild disc bulging with slight effacement of ventral thecal sac. Slight anterolisthesis. Mild c entral canal stenosis. Narrowing of the RIGHT subarticular recess. Moderate facet arthropathy. Mild L EFT greater than RIGHT foraminal narrowing. L3-L4: Mild disc osteophyte complex endplate ridging. Severe central canal stenosis. Impingement iveth ersing L4 nerve roots bilaterally. Advanced facet arthropathy. Ligamentum flavum hypertrophy contribu kylah to stenosis. Moderate RIGHT and mild LEFT foraminal narrowing. Axial T2 images degraded by motion at this level. L4-L5: Mild disc bulging and osteophytic ridging. Moderate central canal stenosis. Impingement on the traversing LEFT L5 nerve root in the subarticular recess. Moderate facet arthropathy. Prominent dors al epidural fat contributes to stenosis. Moderate LEFT and mild RIGHT foraminal narrowing. L5-S1: Slight anterolisthesis L5 on S1. Mild LEFT foraminal narrowing. Spinal canal and RIGHT foramen are patent. Slight impingement on the LEFT S1 nerve root. Advanced facet arthropathy. Adrenal glands are normal. Small LEFT renal cyst. Visualized pelvic bony structures: Normal. Paravertebral soft tissues: Normal. Mild central canal stenosis in the cervical spine at C3-C6. Small protrusions in the mid thoracic spi ne. MR/MR lumbar spine wo con* [id number] IMPRESSION: 1. Mild lumbar curve. No acute compression. 2. Severe central canal stenosis L3-L4 due to disc bulging in combination with facet arthropathy and prominent ligamentum flavum hypertrophy. This is concord ant with the recent CT. Central canal measures approximately 4.5 mm at this lev el. 3. Moderate central canal stenosis L4-L5 due to disc osteophyte complex in com bination with facet arthropathy and prominent dorsal epidural fat. 4. Mild central canal stenosis L2-L3. Slight impingement RIGHT subarticular re cess. 5. Moderate RIGHT L3-L4 foraminal narrowing. 6. Moderate LEFT L4-L5 and mild LEFT L5-S1 foraminal narrowing.
--- NOTE | 2022-06-10 13:32 | P.CONIM_ITS ---
Providers/Reason For Consult Consulting Physician/Specialty*: Hospitalist Reason for Consult*: Possible cauda equina syndrome Attending Physician: Ani Yepez MD Primary Care Provider: Mia Lua NP History of Present Illness History of Present Illness Gadiel Hoskins is a 66 year old male who I am being consulted for for possible causes equina syndrome. Patient has been found down in his house in his own urine and defecation. He had a bladder scan which showed 2 L of urine. At this point patient is evaluated on the floor he is somewhat confused. Review of Systems General: Reports: 10 or more systems reviewed and unremarkable except in HPI and below Const: Denies: fever(s), chills or body aches Eyes: Denies: change in vision, blurry vision or photophobia ENMT: Reports: hoarseness; Denies: throat pain, enlarged tonsils, odynophagia or nasal congestion Card: Denies: chest pain, palpitations, irregular heart rhythm, edema, swelling of feet/ankles, lightheadedness, pre-syncope, dyspnea on exertion or orthopnea Resp: Denies: dyspnea, productive cough, non-productive cough, wheezing, stridor, pain on inspiration, change in phlegm color, hemoptysis or chest congestion GI: Denies: abdominal pain, nausea, vomiting, hematemesis, coffee ground emesis, dysphagia, heartburn, diarrhea, constipation, GI cramping, change in stool character, hematochezia or melena : Denies: flank pain, dysuria, urinary frequency, urinary urgency, urinary hesitancy or hematuria Musc: Denies: neck pain, back pain, extremity pain, joint swelling, joint warmth or deformity Neuro: Denies: headache(s), numbness in extremities, weakness in extremities, sensory changes, difficulty walking, frequent falls, dizziness, vertigo, behavioral changes, Slurred speech present or seizure-like activity Psych: Denies: anxiety, depression, suicidal ideation or homicidal ideation Endo: Denies: polyuria, polydipsia, tired all the time, cold intolerance or hot flashes Joe/Lymph: Denies: easy bruising or easy bleeding Medications/Allergies Home Medications Medication Instructions Recorded Confirmed Last Taken Type aripiprazole 10 mg tablet 10 mg PO DAILY 06/09/22 06/09/22 Unknown History aspirin 81 mg tablet,delayed 81 mg PO DAILY 06/09/22 06/09/22 Unknown History release atorvastatin 40 mg tablet 40 mg PO QPM 06/09/22 06/09/22 Unknown History dicyclomine 10 mg capsule 20 mg PO QID PRN Cramps 06/09/22 06/09/22 Unknown History donepezil 10 mg tablet 10 mg PO BEDTIME 06/09/22 06/09/22 Unknown History duloxetine 60 mg capsule,delayed 60 mg PO BID 06/09/22 06/09/22 Unknown History release famotidine 20 mg tablet 20 mg PO BID 06/09/22 06/09/22 Unknown History gabapentin 300 mg capsule 600 mg PO TID 06/09/22 06/09/22 Unknown History hydrocortisone 1 % topical cream 1 applic topical BID 06/09/22 06/09/22 Unknown History insulin aspart U-100 100 unit/mL See Rx Instructions .Route .COMPLEX 06/09/22 06/09/22 1 Week Ago History (3 mL) subcutaneous pen (Novolog ~06/02/22 Flexpen U-100 Insulin aspart) insulin glargine 100 unit/mL (3 See Rx Instructions .Route .COMPLEX 06/09/22 06/09/22 1 Week Ago History mL) subcutaneous pen (Lantus ~06/02/22 Solostar U-100 Insulin) linagliptin 5 mg tablet (Tradjenta) 5 mg PO DAILY 06/09/22 06/09/22 Unknown History meloxicam 7.5 mg tablet 7.5 mg PO DAILY 06/09/22 06/09/22 Unknown History mirtazapine 15 mg tablet 15 mg PO BEDTIME 06/09/22 06/09/22 Unknown History mupirocin 2 % topical ointment 1 applic topical . DIRECTED 06/09/22 06/09/22 Unknown History nifedipine 30 mg tablet,extended 30 mg PO DAILY 06/09/22 06/09/22 Unknown History release 24 hr pantoprazole 40 mg tablet,delayed 40 mg PO DAILY 06/09/22 06/09/22 Unknown History release quetiapine 100 mg tablet 100 mg PO BEDTIME 06/09/22 06/09/22 Unknown History tamsulosin 0.4 mg capsule 0.8 mg PO QPM 06/09/22 06/09/22 Unknown History Allergies Allergy/AdvReac Type Severity Reaction Status Date / Time morphine Allergy Unknown Verified 06/09/22 14:59 Current Medications Generic Name Dose Route Start Last Admin Trade Name Jenny PRN Reason Stop Dose Admin Aripiprazole 10 mg 06/10/22 09:00 06/10/22 08:58 Aripiprazole 10 Mg Tablet PO 10 mg DAILY LIZZ Administration Aspirin 81 mg 06/10/22 09:00 06/10/22 08:58 Aspirin 81 Mg Ec Tablet PO 81 mg DAILY LIZZ Administration Donepezil HCl 10 mg 06/09/22 21:00 06/09/22 21:49 Donepezil 5 Mg Tablet PO 10 mg BEDTIME LIZZ Administration Duloxetine HCl 60 mg 06/10/22 09:00 06/10/22 08:58 Duloxetine 60 Mg Capsule PO 60 mg BID LIZZ Administration Enoxaparin Sodium 40 mg 06/09/22 18:45 06/09/22 21:47 Enoxaparin 40 Mg/0.4 Ml Syringe SUBCUT 40 mg Q24H LIZZ Administration Gabapentin 600 mg 06/09/22 21:00 06/10/22 08:58 Gabapentin 300 Mg Capsule PO 600 mg TID LIZZ Administration Insulin Human Lispro 0 unit 06/09/22 21:00 06/10/22 08:23 Insulin Lispro 100 Unit/1 Ml SUBCUT Not Given WM&BEDTIME LIZZ Protocol Mirtazapine 15 mg 06/09/22 21:00 06/09/22 21:49 Mirtazapine 15 Mg Tablet PO 15 mg BEDTIME LIZZ Administration Nifedipine 30 mg 06/10/22 09:00 06/10/22 08:59 Nifedipine Er (24 Hr) 30 Mg Tablet PO 30 mg DAILY LIZZ Administration Pantoprazole Sodium 40 mg 06/10/22 09:00 06/10/22 08:[address] 40 Mg Tablet PO 40 mg DAILY LIZZ Administration Quetiapine Fumarate 100 mg 06/09/22 21:00 06/09/22 21:49 Quetiapine 100 Mg Tablet PO 100 mg BEDTIME LIZZ Administration PFSH Acute PFSH: Medical History (Updated 06/09/22 @ 19:10 by Ani Yepez MD) Hypertension Type 2 diabetes mellitus with hyperglycemia, with long-term current use of insulin Vitals/I&O/Wt Last Vital Signs Temp 98.3 F 06/10/22 11:29 Pulse 84 06/10/22 11:29 Resp 17 06/10/22 11:29 BP 118/66 06/10/22 11:29 Pulse Ox 97 06/10/22 11:29 O2 Del Method 06/10/22 05:59 06/09/22 06/10/22 06/10/22 22:59 06:59 14:59 Intake Total 2250 / 2250 240 / 2490 360 / 360 Output Total 120 / 120 Balance 2250 / 2250 120 / 2370 360 / 360 Weight last 48 hrs Weight 212 lb 14.4 oz Weight 212 lb Physical Exam Narrative: unable to lift legs 4/5 plantar flexion; 4/5 dorsiflexion; 3/5 EHL extension; sensation intact GENERAL: Patient in no acute distress. CARDIAC: Regular rate and rhythm. CHEST: Normal inspiratory effort, normal respiratory rate. ABDOMEN: Soft and nontender. SKIN: Clear, warm and intact. NEURO?PSYCH: The patient is alert and oriented to person, place and time. Urinary Catheter Management: Woodruff: Cath Placed During This Visit: yes Reason for Continuing Indwelling Catheter: Acute Urinary Retention or Obstruction Urinary Catheter Date of Insertion: 06/09/22 Urinary Catheter Time of Insertion: 18:35 Data 06/10/22 04:02 06/10/22 04:02 Micro: Microbiology 06/10/22 09:55 Occult Blood (FIT) - Final Stool A&P Assessment and plan (1) Acute urinary retention: We will keep n.p.o. awaiting MRI patient should be going on the MRI very soon. Will possibly need to do a decompression. Consult Attestations Medical Necessity Statement: possible cuada equina syndrome Coding Level of Care Code Acute Rent And Housing Investigator for Babita Berry Diagnoses Acute urinary retention R33.8
--- NOTE | 2022-06-10 16:42 | PM.PN ---
Subjective Subjective: Continues to feel continues to feel very weak. Urine culture is showing gram-negative rods. CT head returned with no acute intracranial abnormality. Lumbar CT returned negative for any fracture or dislocation. L2-L3 disc bulge with mild spinal canal and bilateral foraminal narrowing. Other degenerative changes with spinal canal foraminal narrowing noted at levels L2-S1. Medications: Reviewed: Yes Vitals/I&O/Wt Last Vital Signs Temp 98.2 F 06/10/22 16:00 Pulse 98 06/10/22 16:00 Resp 17 06/10/22 16:00 BP 145/76 06/10/22 16:00 Pulse Ox 97 06/10/22 16:00 O2 Del Method 06/10/22 15:42 06/10/22 06/10/22 06/10/22 06:59 14:59 22:59 Intake Total 240 / 2490 840 / 840 Output Total 120 / 120 Balance 120 / 2370 840 / 840 Weight last 48 hrs Weight 96.57 kg Weight 96.162 kg Physical Exam Narrative: General: No acute distress, AO x3 HEENT: PERRLA, pupils bilaterally equal and reactive, pallors not present Chest: Normal vesicular breath sounds, no added sounds, equal good air entry bilaterally CVS: S1-S2 regular, no murmurs, no tachycardia, no gallops, no rubs Abdomen: Soft, nontender, no organomegaly, bowel sounds present Urinary Catheter Management: Woodruff: Cath Placed During This Visit: yes Reason for Continuing Indwelling Catheter: Acute Urinary Retention or Obstruction Urinary Catheter Date of Insertion: 06/09/22 Urinary Catheter Time of Insertion: 18:35 Data 06/10/22 04:02 06/10/22 04:02 Micro: Microbiology 06/09/22 16:45 Urine Culture - Preliminary Urine,Clean Catch Gram Negative Rods 06/10/22 09:55 Occult Blood (FIT) - Final Stool A&P Assessment and plan (1) Type 2 diabetes mellitus with hyperglycemia, with long-term current use of insulin: (2) Dehydration: (3) Acute urinary retention: (4) Physical deconditioning: (5) Recurrent falls: Plan Patient brought in when found by home health to be in poor living conditions. Fecal incontinence+, urinary retention+, overall deconditioning and lower extremity weakness. Recurrent falls at home. CT of the lumbar spine showed severe multilevel degenerative changes with formen stenosis. Spine surgeon Dr. Truong consulted to evalaute for possible cord compression. MRI spine ordered. CT head negative for acute intracranial events. Unclear circumstances of recent admission at [facility]. Appear to be related to some abdominal issues. Currently endorsing multiple episodes of diarrhea per day and fecal incontinence. pending C. difficile PCR and enteric panel. If C. difficile negative may be able to use loperamide. Obtain records from [facility] regarding recent admission CPK normal, less likely rhabdomyolysis normal TSH 0.69 negative alcohol level and urine drug screen Insulin sliding scale high-dose Continue his home medications including aspirin, dicyclomine, donepezil, duloxetine, gabapentin and mirtazapine. PT OT evaluation and treatment. Full code Disposition: Patient appears to be an extremely high fall risk. He has multiple scrapes and bruises all over which appears to corroborate his history of recurrent falls. Per home health patient's home had no heat. He lives by himself and appears to be high risk for adverse outcomes of discharged without appropriate disposition planning. Attestations Medical Necessity Statement*: ortho spine consult today to evaluate for possible cord compression, MRI Coding Level of Care Code Acute Mechanism Inspector for Chg Fwd Diagnoses Type 2 diabetes mellitus with hyperglycemia, with long-term current use of insulin E11.65; Z79.4 Dehydration E86.0 Acute urinary retention R33.8 Physical deconditioning R53.81 Recurrent falls R29.6
[2022-06-10] MEDS: tamsulosin 0.4 mg Capsule 0.8 MG PO (16:44)
[2022-06-10] MEDS: atorvastatin 40 mg Tablet PO (16:44)
--- NOTE | 2022-06-10 17:03 | PM.PN ---
Subjective Subjective: We will plan to take the patient to surgery however patient ate some food recently so I came back up to examine him to see how significant his symptoms were. Patient said he feels like he is actually improving some. He was moving his legs better. At this point with patient improvement and strength improvement no plans for emergent surgery. At this point patient will likely need surgery however my plan would be to do it on more elective basis. MRI was reviewed patient does have severe stenosis at L3-4 and moderate stenosis at L4-5. These are chronic conditions. Not acutely happened. I do not see any acute process going on on the MRI. Vitals/I&O/Wt Last Vital Signs Temp 98.2 F 06/10/22 16:00 Pulse 98 06/10/22 16:00 Resp 17 06/10/22 16:00 BP 145/76 06/10/22 16:00 Pulse Ox 97 06/10/22 16:00 O2 Del Method 06/10/22 15:42 06/10/22 06/10/22 06/10/22 06:59 14:59 22:59 Intake Total 240 / 2490 840 / 840 Output Total 120 / 120 Balance 120 / 2370 840 / 840 Weight last 48 hrs Weight 212 lb 14.4 oz Weight 212 lb Physical Exam Urinary Catheter Management: Woodruff: Cath Placed During This Visit: yes Reason for Continuing Indwelling Catheter: Acute Urinary Retention or Obstruction Urinary Catheter Date of Insertion: 06/09/22 Urinary Catheter Time of Insertion: 18:35 Data 06/10/22 04:02 06/10/22 04:02 Micro: Microbiology 06/09/22 16:45 Urine Culture - Preliminary Urine,Clean Catch Gram Negative Rods 06/10/22 09:55 Occult Blood (FIT) - Final Stool Attestations Medical Necessity Statement*: per primary service Coding Level of Care Code Acute Chinchilla Machine Operator for Babita Berry
[2022-06-10 17:53] LABS: Glucose Point of Care 336 mg/dL (70-110)
[2022-06-10] MEDS: insulin lispro 100 unit/1 mL SUBCUT ×2 (17:54→21:34)
[2022-06-10 18:01] LABS: Glucose Point of Care 345 mg/dL (70-110)
[2022-06-10 19:50] LABS: Glucose Point of Care 243 mg/dL (70-110)
--- NOTE | 2022-06-10 21:30 | PC.NURSE ---
This nurse discussed with the patient that his daughter, Janet Khanna, had called for an update but nurse was busy at the moment so her number was taken and call would be returned if okay with the patient. Patient stated You can tell her that I am here but I don't want her to know anything else.
[2022-06-10] MEDS: mirtazapine 15 mg Tablet PO (21:32)
[2022-06-10] MEDS: quetiapine 100 mg Tablet PO (21:32)
[2022-06-10] MEDS: donepezil 5 MG Tablet 10 MG PO (21:34)
--- NOTE | 2022-06-11 | PC.NURSE ---
Patient gave verbal consent to discuss all information with his son, Madhu Hoskins.
--- NOTE | 2022-06-11 03:11 | PC.NURSE ---
Patient gave verbal permission to discuss all information with his son, Madhu Hoskins.
[2022-06-11 03:20] VITALS: BP 95/58; PULSE 84; RESP 20; TEMP 36.7; O2SAT 90
[2022-06-11 06:50] LABS: Glucose Point of Care 251 mg/dL (70-110)
[2022-06-11 07:57] LABS: Glucose Point of Care 268 mg/dL (70-110)
[2022-06-11 08:00] VITALS: BP 115/69; PULSE 90; PULSE 95; RESP 18; TEMP 36.6; O2SAT 95
[2022-06-11] MEDS: gabapentin 300 mg Capsule 600 MG PO ×3 (08:31→20:31)
[2022-06-11] MEDS: duloxetine 60 mg Capsule PO ×2 (08:32→17:27)
[2022-06-11] MEDS: ARIPiprazole 10 mg Tablet PO (08:32)
[2022-06-11] MEDS: pantoprazole DR 40 mg Tablet PO (08:32)
[2022-06-11] MEDS: NIFEdipine ER (24 hr) 30 mg Tablet PO (08:32)
[2022-06-11] MEDS: aspirin 81 mg EC Tablet PO (08:32)
[2022-06-11] MEDS: insulin lispro 100 unit/1 mL SUBCUT ×4 (08:33→20:29)
[2022-06-11 10:10] LABS: Basophils % 0.5 %; Eosinophils # 0.2 10^3/uL (0.0-0.8); Eosinophils % 2.9 %; Hematocrit 32.9 % (42.0-52.0); Hemoglobin 10.9 g/dL (11.7-16.6); Lymphocytes # 0.4 10^3/uL (0.8-4.8); Lymphocytes % 6.5 %; Mean Corpuscular HGB Conc 33.1 g/dL (30.0-36.0); Mean Corpuscular Volume 90.6 fl (80-94); Mean Platelet Volume 8.8 fL (7.4-10.4); Monocytes # 0.4 10^3/uL (0.2-0.9); Monocytes % 6.4 %; Neutrophils # 5.22 10^3/uL (1.8-7.7); Neutrophils % 83.4 %; Nucleated Red Blood Cells % 0 %; Platelet Count 130 10^3/cmm (130-400); Red Blood Count 3.63 10^6/uL (4.1-5.3); Red Cell Distribution Width 12.2 % (12.1-15.1); White Blood Count 6.3 10^3/uL (4.0-10.0)
[2022-06-11 10:50] LABS: Blood Urea Nitrogen 23 mg/dL (8-23); Calcium 8.1 mg/dL (8.5-10.5); Carbon Dioxide 24 mmol/L (22-29); Chloride 101 mmol/L (98-107); Glomerular Filtration Rate 74.5 mL/min (90-130); Glucose 374 mg/dL (65-115); Osmolality Calculated 293 mOsm/kg (285-295); Sodium 132 mmol/L (136-145)
[2022-06-11 12:00] VITALS: BP 98/61; PULSE 96; RESP 16; TEMP 36.6; O2SAT 97
--- NOTE | 2022-06-11 12:52 | PM.PN ---
Subjective Subjective: seen this am pt says earlier he had some abdominal pain which has now resolved. ucx pending bmp repeated. sodium 132. cdiff negative fobt positive hb stable 10.9. no active bleeding Vitals/I&O/Wt Last Vital Signs Temp 97.9 F 06/11/22 08:00 Pulse 95 06/11/22 08:00 Resp 18 06/11/22 08:00 BP 115/69 06/11/22 08:00 Pulse Ox 95 06/11/22 08:00 O2 Del Method 06/11/22 08:00 06/10/22 06/11/22 06/11/22 22:59 06:59 14:59 Intake Total 720 / 1560 680 / 680 Output Total 1125 / 1125 Balance 720 / 1560 -1125 / 435 680 / 680 Weight last 48 hrs Weight 96.57 kg Weight 96.162 kg Physical Exam Narrative: General: No acute distress, AO x3 HEENT: pupils bilaterally equal and reactive, pallors not present, EOMI Chest: Cleat to ausculation b/l , no wheezes or ronchi. CVS: S1-S2 regular, no murmurs, no tachycardia, no gallops, no rubs Abdomen: Soft, nontender, no organomegaly, bowel sounds present, non tender to palpation Urinary Catheter Management: Woodruff: Cath Placed During This Visit: yes Reason for Continuing Indwelling Catheter: Acute Urinary Retention or Obstruction Urinary Catheter Date of Insertion: 06/09/22 Urinary Catheter Time of Insertion: 18:35 Data 06/11/22 09:50 06/11/22 09:50 Micro: Microbiology 06/10/22 09:55 C.difficile Toxin B Gene (PCR) - Final Stool Occult Blood (FIT) - Final 06/09/22 16:45 Urine Culture - Preliminary Urine,Clean Catch Gram Negative Rods A&P Assessment and plan (1) Type 2 diabetes mellitus with hyperglycemia, with long-term current use of insulin: (2) Dehydration: (3) Acute urinary retention: (4) Physical deconditioning: (5) Recurrent falls: Plan Patient brought in when found by home health to be in poor living conditions. Fecal incontinence+, urinary retention+, overall deconditioning and lower extremity weakness. Recurrent falls at home. CT of the lumbar spine showed severe multilevel degenerative changes with formen stenosis. Spine surgeon Dr. Truong consulted to evalaute for possible cord compression. MRI spine ordered. CT head negative for acute intracranial events. Unclear circumstances of recent admission at [facility]. Appear to be related to some abdominal issues. Currently endorsing multiple episodes of diarrhea per day and fecal incontinence. pending C. difficile PCR and enteric panel. C. difficile is negative. Obtain records from [facility] regarding recent admission. Pending CPK normal, less likely rhabdomyolysis Urine culture grow gram negative rods. Sensitivity pending. normal TSH 0.69 negative alcohol level and urine drug screen Insulin sliding scale high-dose Continue his home medications including aspirin, dicyclomine, donepezil, duloxetine, gabapentin and mirtazapine. PT OT evaluation and treatment. Full code Disposition: Patient appears to be an extremely high fall risk. He has multiple scrapes and bruises all over which appears to corroborate his history of recurrent falls. Per home health patient's home had no heat. He lives by himself and appears to be high risk for adverse outcomes of discharged without appropriate disposition planning. Attestations Medical Necessity Statement*: Pending placement Coding Level of Care Code Acute Dinking Machine Operator for Chg Fwd Diagnoses Type 2 diabetes mellitus with hyperglycemia, with long-term current use of insulin E11.65; Z79.4 Dehydration E86.0 Acute urinary retention R33.8 Physical deconditioning R53.81 Recurrent falls R29.6
[2022-06-11 15:26] LABS: Glucose Point of Care 342 mg/dL (70-110)
[2022-06-11 16:00] VITALS: BP 118/74; PULSE 81; RESP 17; TEMP 36.4; O2SAT 94
[2022-06-11] MEDS: atorvastatin 40 mg Tablet PO (17:27)
[2022-06-11] MEDS: tamsulosin 0.4 mg Capsule 0.8 MG PO (17:27)
[2022-06-11 17:28] LABS: Glucose Point of Care 290 mg/dL (70-110)
[2022-06-11 20:00] VITALS: BP 122/74; PULSE 100; RESP 17; TEMP 36.6; O2SAT 94; O2SAT 96
[2022-06-11 20:16] LABS: Glucose Point of Care 191 mg/dL (70-110)
[2022-06-11] MEDS: enoxaparin 40 mg/0.4 mL Syringe SUBCUT (20:29)
[2022-06-11] MEDS: donepezil 5 MG Tablet 10 MG PO (20:30)
[2022-06-11] MEDS: quetiapine 100 mg Tablet PO (20:31)
[2022-06-11] MEDS: mirtazapine 15 mg Tablet PO (20:31)
[2022-06-12] VITALS: BP 109/64; PULSE 95; RESP 17; TEMP 36.7; O2SAT 93
[2022-06-12 04:00] VITALS: BP 113/70; PULSE 106; RESP 17; TEMP 36.8; O2SAT 93
[2022-06-12 04:39] LABS: Anion Gap 12.7 (5-19); Blood Urea Nitrogen 19 mg/dL (8-23); Calcium 8.1 mg/dL (8.5-10.5); Carbon Dioxide 25 mmol/L (22-29); Chloride 100 mmol/L (98-107); Glomerular Filtration Rate 84.2 mL/min (90-130); Glucose 293 mg/dL (65-115); Osmolality Calculated 291 mOsm/kg (285-295); Potassium 3.7 mmol/L (3.5-5.1); Sodium 134 mmol/L (136-145)
[2022-06-12 06:43] LABS: Glucose Point of Care 319 mg/dL (70-110)
[2022-06-12 08:00] VITALS: BP 141/82; PULSE 102; PULSE 82; RESP 17; TEMP 36.8; O2SAT 94; O2SAT 96
[2022-06-12] MEDS: ARIPiprazole 10 mg Tablet PO (08:24)
[2022-06-12] MEDS: gabapentin 300 mg Capsule 600 MG PO ×3 (08:24→20:15)
[2022-06-12] MEDS: pantoprazole DR 40 mg Tablet PO (08:25)
[2022-06-12] MEDS: aspirin 81 mg EC Tablet PO (08:25)
[2022-06-12] MEDS: NIFEdipine ER (24 hr) 30 mg Tablet PO (08:25)
[2022-06-12] MEDS: duloxetine 60 mg Capsule PO ×2 (08:27→16:44)
[2022-06-12] MEDS: insulin lispro 100 unit/1 mL SUBCUT ×4 (08:27→20:53)
--- NOTE | 2022-06-12 09:27 | PC.SOCIAL ---
Imm update Imm updated with patient at bedside. Copy of page 2 provided. Patient verbalized understanding. Copy in Chart initialed, dated and timed.
[2022-06-12 12:00] VITALS: BP 129/78; PULSE 96; RESP 18; O2SAT 97
[2022-06-12 12:24] LABS: Glucose Point of Care 367 mg/dL (70-110)
[2022-06-12 16:00] VITALS: BP 125/76; PULSE 95; RESP 16; TEMP 36.7; O2SAT 95
--- NOTE | 2022-06-12 16:03 | PM.PN ---
Subjective Subjective: Subjectively feeling much subjectively improving. Working with PT. Ambulating in the room with assistance. His diarrhea is improving additionally. No further nausea or vomiting. Medications: Reviewed: Yes Vitals/I&O/Wt Last Vital Signs Temp 98.2 F 06/12/22 08:00 Pulse 96 06/12/22 12:00 Resp 18 06/12/22 12:00 BP 129/78 06/12/22 12:00 Pulse Ox 97 06/12/22 12:00 O2 Del Method 06/12/22 08:00 06/12/22 06/12/22 06/12/22 06:59 14:59 22:59 Intake Total 240 / 240 Output Total 2099 / 2099 Balance -2100 / -1180 240 / 240 Physical Exam Narrative: General: No acute distress, AO x3 HEENT: PERRLA, pupils bilaterally equal and reactive, pallors not present Chest: Normal vesicular breath sounds, no added sounds, equal good air entry bilaterally CVS: S1-S2 regular, no murmurs, no tachycardia, no gallops, no rubs Abdomen: Soft, nontender, no organomegaly, bowel sounds present Neuro: No focal deficits, no facial deformity, AO x3, power 5/5 in all limbs Urinary Catheter Management: Woodruff: Cath Placed During This Visit: yes Reason for Continuing Indwelling Catheter: Acute Urinary Retention or Obstruction Urinary Catheter Date of Insertion: 06/09/22 Urinary Catheter Time of Insertion: 18:35 Data 06/11/22 09:50 06/12/22 03:12 Micro: Microbiology 06/09/22 16:45 Urine Culture - Final Urine,Clean Catch Klebsiella pneumoniae 06/10/22 09:55 Enteric Pathogens (PCR) - Final Stool Parasite Antigen Panel - Final C.difficile Toxin B Gene (PCR) - Final Occult Blood (FIT) - Final A&P Assessment and plan (1) Type 2 diabetes mellitus with hyperglycemia, with long-term current use of insulin: (2) Dehydration: (3) Acute urinary retention: (4) Physical deconditioning: (5) Recurrent falls: Plan Patient brought in when found by home health to be in poor living conditions. Fecal incontinence+, urinary retention+, overall deconditioning and lower extremity weakness. Recurrent falls at home. CT of the lumbar spine showed severe multilevel degenerative changes with formen stenosis. MRI of the spine performed due to urgent surgery was therefore deferred, however patient will likely need to address this as an outpatient. CT head negative for acute intracranial events. Unclear circumstances of recent admission at [facility]. Appear to be related to some abdominal issues. Currently endorsing multiple episodes of diarrhea per day and fecal incontinence. This is now improving as well. Negative C. difficile PCR and enteric panel. CPK normal, less likely rhabdomyolysis normal TSH 0.69 negative alcohol level and urine drug screen Insulin sliding scale high-dose Nausea and vomiting is now resolved, his p.o. intake is improving. Continue his home medications including aspirin, dicyclomine, donepezil, duloxetine, gabapentin and mirtazapine. PT OT evaluation and treatment. Full code Disposition: Patient appears to be an extremely high fall risk. He has multiple scrapes and bruises all over which appears to corroborate his history of recurrent falls. Per home health patient's home had no heat. He lives by himself and appears to be high risk for adverse outcomes of discharged without appropriate disposition planning. He currently remains admitted for intensive physical therapy. Attestations Medical Necessity Statement*: Patient with high fall risk, improving with IV hydration, intense physical therapy, appropriate disposition planning ongoing. Coding Level of Care Code Acute Civil Engineering Design Draftsperson for Chg Fwd Diagnoses Type 2 diabetes mellitus with hyperglycemia, with long-term current use of insulin E11.65; Z79.4 Dehydration E86.0 Acute urinary retention R33.8 Physical deconditioning R53.81 Recurrent falls R29.6
[2022-06-12] MEDS: cefTRIAXone 1,000 MG in sodium chloride 0.9% (plus) 50 ML 100 MG IV (16:43)
[2022-06-12] MEDS: enoxaparin 40 mg/0.4 mL Syringe SUBCUT (16:44)
[2022-06-12] MEDS: atorvastatin 40 mg Tablet PO (16:44)
[2022-06-12] MEDS: tamsulosin 0.4 mg Capsule 0.8 MG PO (16:44)
[2022-06-12 17:04] LABS: Glucose Point of Care 325 mg/dL (70-110)
[2022-06-12 20:00] VITALS: BP 132/71; PULSE 92; RESP 17; TEMP 36.7; O2SAT 95; O2SAT 96
[2022-06-12] MEDS: mirtazapine 15 mg Tablet PO (20:15)
[2022-06-12] MEDS: quetiapine 100 mg Tablet PO (20:15)
[2022-06-12] MEDS: donepezil 5 MG Tablet 10 MG PO (20:18)
[2022-06-12 20:56] LABS: Glucose Point of Care 303 mg/dL (70-110)
[2022-06-13] VITALS (8 sets, daily range): BP systolic 118–131; BP diastolic 68–78; PULSE 90–107; RESP 13–18; TEMP 36.2–36.8; O2SAT 89–96
[2022-06-13 06:24] LABS: Glucose Point of Care 326 mg/dL (70-110)
--- NOTE | 2022-06-13 06:48 | P.PN_ITS ---
Subjective Subjective: Patient resting comfortably. Denies any complaints of back or leg pains. Vitals/I&O/Wt Last Vital Signs Temp 97.9 F 06/13/22 04:00 Pulse 98 06/13/22 04:00 Resp 16 06/13/22 04:00 BP 118/74 06/13/22 04:00 Pulse Ox 89 L 06/13/22 04:00 O2 Del Method 06/12/22 20:00 06/12/22 06/12/22 06/13/22 14:59 22:59 06:59 Intake Total 240 / 240 360 / 600 240 / 840 Output Total 1950 / 1950 1600 / 3550 Balance 240 / 240 -1590 / -1350 -1360 / -2710 Physical Exam Narrative: He is alert orient x3 has good general appearance normal mood and affect. Good strength in both lower extremities legs are warm feet are in good cap refill calves are supple no medial thigh tenderness. Fires in all motor groups. No tenderness with palpation his lumbar spine. He has negative logroll bilaterally pulses are weak but palpable both dorsalis pedis and posterior tibial regions. No palpable pain in the thoracic or cervical spine. Full range of motion of both upper extremity at the shoulder elbow and wrist hands warm good cap refill radial pulses are palpable good sensation light touch throughout both upper/lower extremities. HENMT: COMMON NORMALS: normocephalic HEAD & SCALP: normocephalic Resp: COMMON NORMALS: normal respiratory effort Cardio: COMMON NORMALS: regular rate and regular rhythm RATE: regular rate RHYTHM: regular rhythm GI: COMMON NORMALS: Soft to palpation and non-tender PALPATION: Yes Soft to palpation : COMMON NORMALS: Yes no CVA tenderness BLADDER/KIDNEY EXAM: Yes no CVA tenderness Back/Pelvis: COMMON NORMALS: no CVA tenderness Psych: COMMON NORMALS: mental status grossly normal and cooperative Urinary Catheter Management: Woodruff: Cath Placed During This Visit: yes Reason for Continuing Indwelling Catheter: Acute Urinary Retention or Ob struction Urinary Catheter Date of Insertion: 06/09/22 Urinary Catheter Time of Insertion: 18:35 Data 06/11/22 09:50 06/12/22 03:12 A&P Assessment and plan (1) Spinal stenosis, lumbar region, with neurogenic claudication: He will follow-up in the office in 1 week's time for continued evaluation of his low back and lumbar stenosis. Defer to medical team regarding discharge when medically stable. Attestations Medical Necessity Statement*: Defer to medical team Coding Level of Care Code Established Pt Acute Flow Machine Operator for Chg Fwd Patient Type Established History Expanded Problem Focused Exam Expanded Problem Focused Medical Decision Making Moderate Complexity Diagnoses Spinal stenosis, lumbar region, with neurogenic claudication M48.062
[2022-06-13] MEDS: insulin lispro 100 unit/1 mL SUBCUT ×4 (08:55→21:24)
[2022-06-13] MEDS: aspirin 81 mg EC Tablet PO (10:43)
[2022-06-13] MEDS: NIFEdipine ER (24 hr) 30 mg Tablet PO (10:43)
[2022-06-13] MEDS: ARIPiprazole 10 mg Tablet PO (10:43)
[2022-06-13] MEDS: duloxetine 60 mg Capsule PO ×2 (10:44→18:00)
[2022-06-13] MEDS: gabapentin 300 mg Capsule 600 MG PO ×3 (10:44→20:45)
[2022-06-13] MEDS: pantoprazole DR 40 mg Tablet PO (10:44)
[2022-06-13 11:30] LABS: Glucose Point of Care 348 mg/dL (70-110)
--- NOTE | 2022-06-13 12:01 | P.PN_ITS ---
Subjective Subjective: Seen this morning. No events overnight. Patient has no complaints at this time and is awaiting placement. Vitals/I&O/Wt Last Vital Signs Temp 98.3 F 06/13/22 08:00 Pulse 107 H 06/13/22 09:02 Resp 18 06/13/22 08:00 BP 120/74 06/13/22 08:00 Pulse Ox 93 06/13/22 09:02 O2 Del Method 06/13/22 09:02 06/12/22 06/13/22 06/13/22 22:59 06:59 14:59 Intake Total 360 / 600 240 / 840 360 / 360 Output Total 1950 / 1950 1600 / 3550 Balance -1590 / -1350 -1360 / -2710 360 / 360 Physical Exam Narrative: General: No acute distress, AO x3 HEENT: EOMI. Chest: Cleat to ausculation b/l , no wheezes or ronchi. CVS: S1-S2 regular, no murmurs, no tachycardia, no gallops, no rubs Abdomen: Soft, nontender, bowel sounds present, non tender to palpation Extremities: No bilateral lower extremity edema, cyanosis, very dry skin present. Unkept toenails. Urinary Catheter Management: Woodruff: Cath Placed During This Visit: yes Reason for Continuing Indwelling Catheter: Acute Urinary Retention or Obstruction Urinary Catheter Date of Insertion: 06/09/22 Urinary Catheter Time of Insertion: 18:35 Data 06/11/22 09:50 06/12/22 03:12 A&P Assessment and plan (1) Type 2 diabetes mellitus with hyperglycemia, with long-term current use of insulin: (2) Dehydration: (3) Acute urinary retention: (4) Physical deconditioning: (5) Recurrent falls: Plan Patient brought in when found by home health to be in poor living conditions. Fecal incontinence+, urinary retention+, overall deconditioning and lower extremity weakness. Recurrent falls at home. CT of the lumbar spine showed severe multilevel degenerative changes with formen stenosis. Spine surgeon Dr. Truong consulted to evalaute for possible cord compression. MRI spine ordered. Seen by orthopedic surgery. They would like to follow-up with the patient in 1 week time in their office for continued evaluation of his spinal stenosis. CT head negative for acute intracranial events. Unclear circumstances of recent admission at [facility]. Appear to be related to some abdominal issues. Currently endorsing multiple episodes of diarrhea per day and fecal incontinence.. Diarrhea has resolved. C. difficile is negative, enteric panel is negative. FOBT positive. CPK normal, less likely rhabdomyolysis Urine culture grow gram negative rods. Sensitivity pending. normal TSH 0.69 negative alcohol level and urine drug screen Insulin sliding scale high-dose Continue his home medications including aspirin, dicyclomine, donepezil, duloxetine, gabapentin and mirtazapine. PT OT evaluation and treatment. Full code Disposition: Patient appears to be an extremely high fall risk. He has multiple scrapes and bruises all over which appears to corroborate his history of recurrent falls. Per home health patient's home had no heat. He lives by himself and appears to be high risk for adverse outcomes of discharged without appropriate disposition planning. Attestations Medical Necessity Statement*: Pending placement. 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
[2022-06-13 16:46] LABS: Glucose Point of Care 273 mg/dL (70-110)
[2022-06-13] MEDS: enoxaparin 40 mg/0.4 mL Syringe SUBCUT (18:00)
[2022-06-13] MEDS: atorvastatin 40 mg Tablet PO (18:00)
[2022-06-13] MEDS: tamsulosin 0.4 mg Capsule 0.8 MG PO (18:00)
[2022-06-13] MEDS: cefTRIAXone 1,000 MG in sodium chloride 0.9% (plus) 50 ML 100 MG IV (18:00)
[2022-06-13] MEDS: donepezil 5 MG Tablet 10 MG PO (20:45)
[2022-06-13] MEDS: quetiapine 100 mg Tablet PO (20:45)
[2022-06-13] MEDS: mirtazapine 15 mg Tablet PO (20:45)
[2022-06-13 20:48] LABS: Glucose Point of Care 344 mg/dL (70-110)
[2022-06-14] VITALS: BP 126/80; PULSE 100; RESP 16; TEMP 36.9; O2SAT 92
[2022-06-14 04:00] VITALS: BP 123/73; PULSE 99; RESP 16; TEMP 36.9; O2SAT 90
[2022-06-14 06:23] LABS: Glucose Point of Care 322 mg/dL (70-110)
[2022-06-14 07:33] LABS: Glucose Point of Care 313 mg/dL (70-110)
[2022-06-14 08:00] VITALS: BP 113/69; PULSE 73; RESP 16; TEMP 36.9; O2SAT 94
[2022-06-14] MEDS: insulin lispro 100 unit/1 mL SUBCUT ×4 (08:31→22:18)
[2022-06-14] MEDS: gabapentin 300 mg Capsule 600 MG PO ×3 (08:31→20:42)
[2022-06-14] MEDS: duloxetine 60 mg Capsule PO ×2 (08:31→18:03)
[2022-06-14] MEDS: ARIPiprazole 10 mg Tablet PO (08:31)
[2022-06-14] MEDS: NIFEdipine ER (24 hr) 30 mg Tablet PO (08:32)
[2022-06-14] MEDS: aspirin 81 mg EC Tablet PO (08:32)
[2022-06-14] MEDS: pantoprazole DR 40 mg Tablet PO (08:34)
[2022-06-14 10:42] LABS: Glucose Point of Care 425 mg/dL (70-110)
[2022-06-14 12:00] VITALS: BP 124/75; PULSE 97; RESP 16; TEMP 36.3; O2SAT 97
--- NOTE | 2022-06-14 12:43 | PC.SOCIAL ---
IMM Updated Updated pt on IMM. No questions voiced. Provided pt a copy. Initialed, dated, & timed copy in chart.
--- NOTE | 2022-06-14 12:54 | PM.PN ---
Subjective Subjective: Seen this morning no acute events overnight. Blood sugar 425. Labs from today pending at this time. Patient to take a shower today. Vitals/I&O/Wt Last Vital Signs Temp 97.4 F L 06/14/22 12:00 Pulse 97 06/14/22 12:00 Resp 16 06/14/22 12:00 BP 124/75 06/14/22 12:00 Pulse Ox 97 06/14/22 12:00 O2 Del Method 06/14/22 12:00 06/13/22 06/14/22 06/14/22 22:59 06:59 14:59 Intake Total 530 / 1130 240 / 1370 360 / 360 Output Total 1550 / 3100 Balance 530 / -420 -1310 / -1730 360 / 360 Physical Exam Narrative: General: No acute distress, AO x3 HEENT: EOMI. has a laceration on head. Chest: Cleat to ausculation b/l , no wheezes or ronchi. CVS: S1-S2 regular, no murmurs, no tachycardia, no gallops, no rubs Abdomen: Soft, nontender, bowel sounds present, non tender to palpation Extremities: No bilateral lower extremity edema, cyanosis, very dry skin present. Unkept toenails. Urinary Catheter Management: Woodruff: Cath Placed During This Visit: yes Reason for Continuing Indwelling Catheter: Acute Urinary Retention or Obstruction Urinary Catheter Date of Insertion: 06/09/22 Urinary Catheter Time of Insertion: 18:35 Data 06/11/22 09:50 06/12/22 03:12 A&P Assessment and plan (1) Type 2 diabetes mellitus with hyperglycemia, with long-term current use of insulin: (2) Dehydration: (3) Acute urinary retention: (4) Physical deconditioning: (5) Recurrent falls: Plan Patient brought in when found by home health to be in poor living conditions. Fecal incontinence+, urinary retention+, overall deconditioning and lower extremity weakness. Recurrent falls at home. CT of the lumbar spine showed severe multilevel degenerative changes with formen stenosis. Spine surgeon Dr. Truong consulted to evalaute for possible cord compression. MRI spine ordered. Seen by orthopedic surgery. They would like to follow-up with the patient in 1 week time in their office for continued evaluation of his spinal stenosis. CT head negative for acute intracranial events. Unclear circumstances of recent admission at [facility]. Appear to be related to some abdominal issues. Currently endorsing multiple episodes of diarrhea per day and fecal incontinence.. Diarrhea has resolved. C. difficile is negative, enteric panel is negative. FOBT positive. CPK normal, less likely rhabdomyolysis Urine culture grow gram negative rods. Sensitivity pending. normal TSH 0.69 negative alcohol level and urine drug screen Insulin sliding scale high-dose Continue his home medications including aspirin, dicyclomine, donepezil, duloxetine, gabapentin and mirtazapine. PT OT evaluation and treatment. CHECK BMP TODAY. Will add home lantus. Pt on 25 units in AM and 5 units at bedtime. Will start on 20 daily at this time. Full code Disposition: Patient appears to be an extremely high fall risk. He has multiple scrapes and bruises all over which appears to corroborate his history of recurrent falls. Per home health patient's home had no heat. He lives by himself and appears to be high risk for adverse outcomes of discharged without appropriate disposition planning. Attestations Medical Necessity Statement*: Pending placement. 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
[2022-06-14 15:21] LABS: Basophils % 0.7 %; Eosinophils # 0.3 10^3/uL (0.0-0.8); Eosinophils % 5.4 %; Hematocrit 34.3 % (42.0-52.0); Hemoglobin 11.4 g/dL (11.7-16.6); Lymphocytes # 0.9 10^3/uL (0.8-4.8); Lymphocytes % 14.2 %; Mean Corpuscular HGB Conc 33.2 g/dL (30.0-36.0); Mean Corpuscular Hemoglobin 30.1 pg (28.0-34.0); Mean Corpuscular Volume 90.5 fl (80-94); Mean Platelet Volume 9.5 fL (7.4-10.4); Monocytes # 0.6 10^3/uL (0.2-0.9); Monocytes % 9.7 %; Neutrophils # 4.14 10^3/uL (1.8-7.7); Neutrophils % 69.2 %; Nucleated Red Blood Cells % 0 %; Platelet Count 191 10^3/cmm (130-400); Red Blood Count 3.79 10^6/uL (4.1-5.3); Red Cell Distribution Width 12.3 % (12.1-15.1)
[2022-06-14 15:26] LABS: Anion Gap 13.7 (5-19); Blood Urea Nitrogen 19 mg/dL (8-23); Calcium 8.9 mg/dL (8.5-10.5); Carbon Dioxide 28 mmol/L (22-29); Chloride 98 mmol/L (98-107); Glomerular Filtration Rate 84.2 mL/min (90-130); Glucose 343 mg/dL (65-115); Osmolality Calculated 296 mOsm/kg (285-295); Potassium 4.7 mmol/L (3.5-5.1); Sodium 135 mmol/L (136-145)
[2022-06-14 15:40] VITALS: BP 117/70; PULSE 91; RESP 16; TEMP 36.9; O2SAT 94
[2022-06-14 16:47] LABS: Glucose Point of Care 294 mg/dL (70-110)
[2022-06-14] MEDS: atorvastatin 40 mg Tablet PO (18:02)
[2022-06-14] MEDS: tamsulosin 0.4 mg Capsule 0.8 MG PO (18:02)
[2022-06-14] MEDS: enoxaparin 40 mg/0.4 mL Syringe SUBCUT (18:02)
[2022-06-14] MEDS: cefTRIAXone 1,000 MG in sodium chloride 0.9% (plus) 50 ML 100 MG IV (18:06)
[2022-06-14] MEDS: mupirocin oint 22 gm 1 APPLIC TOPICAL (18:06)
[2022-06-14 20:00] VITALS: BP 121/72; PULSE 89; RESP 21; TEMP 36.7; O2SAT 97
[2022-06-14] MEDS: quetiapine 100 mg Tablet PO (20:41)
[2022-06-14] MEDS: mirtazapine 15 mg Tablet PO (20:41)
[2022-06-14] MEDS: donepezil 5 MG Tablet 10 MG PO (21:51)
[2022-06-14] MEDS: insulin glargine 100 units/1 mL 20 UNIT SUBCUT (21:52)
[2022-06-14 21:54] LABS: Glucose Point of Care 337 mg/dL (70-110)
[2022-06-15] VITALS: BP 111/71; PULSE 93; RESP 17; TEMP 36.9; O2SAT 94
[2022-06-15 04:00] VITALS: BP 121/71; PULSE 84; RESP 17; TEMP 36.6; O2SAT 92
[2022-06-15 04:09] LABS: Basophils # 0.1 10^3/uL (0.0-0.1); Basophils % 0.8 %; Eosinophils # 0.3 10^3/uL (0.0-0.8); Eosinophils % 5.2 %; Hematocrit 31.6 % (42.0-52.0); Hemoglobin 10.5 g/dL (11.7-16.6); Lymphocytes # 1.1 10^3/uL (0.8-4.8); Lymphocytes % 17.4 %; Mean Corpuscular HGB Conc 33.2 g/dL (30.0-36.0); Mean Corpuscular Hemoglobin 30.2 pg (28.0-34.0); Mean Corpuscular Volume 90.8 fl (80-94); Mean Platelet Volume 9.1 fL (7.4-10.4); Monocytes # 0.8 10^3/uL (0.2-0.9); Monocytes % 12.8 %; Neutrophils # 4.11 10^3/uL (1.8-7.7); Neutrophils % 62.6 %; Nucleated Red Blood Cells % 0 %; Platelet Count 178 10^3/cmm (130-400); Red Blood Count 3.48 10^6/uL (4.1-5.3); Red Cell Distribution Width 12.4 % (12.1-15.1); White Blood Count 6.6 10^3/uL (4.0-10.0)
[2022-06-15 04:33] LABS: Anion Gap 12.6 (5-19); Blood Urea Nitrogen 19 mg/dL (8-23); Calcium 8.8 mg/dL (8.5-10.5); Carbon Dioxide 28 mmol/L (22-29); Chloride 98 mmol/L (98-107); Glomerular Filtration Rate 74.5 mL/min (90-130); Glucose 266 mg/dL (65-115); Osmolality Calculated 290 mOsm/kg (285-295); Potassium 4.6 mmol/L (3.5-5.1); Sodium 134 mmol/L (136-145)
[2022-06-15 06:54] LABS: Glucose Point of Care 267 mg/dL (70-110)
[2022-06-15 07:25] VITALS: BP 120/68; PULSE 100; RESP 17; TEMP 37.2; O2SAT 93
[2022-06-15] MEDS: insulin lispro 100 unit/1 mL SUBCUT ×4 (09:34→21:57)
[2022-06-15] MEDS: aspirin 81 mg EC Tablet PO (09:34)
[2022-06-15] MEDS: NIFEdipine ER (24 hr) 30 mg Tablet PO (09:34)
[2022-06-15] MEDS: ARIPiprazole 10 mg Tablet PO (09:34)
[2022-06-15] MEDS: mupirocin oint 22 gm 1 APPLIC TOPICAL ×2 (09:34→17:56)
[2022-06-15] MEDS: pantoprazole DR 40 mg Tablet PO (09:34)
[2022-06-15] MEDS: gabapentin 300 mg Capsule 600 MG PO ×3 (09:34→20:21)
[2022-06-15] MEDS: duloxetine 60 mg Capsule PO ×2 (09:35→17:32)
[2022-06-15 11:05] LABS: Glucose Point of Care 403 mg/dL (70-110)
[2022-06-15 11:18] VITALS: BP 120/70; PULSE 90; RESP 17; TEMP 36.9; O2SAT 93
--- NOTE | 2022-06-15 12:54 | PC.CHAP ---
Pastoral Care Encounter/Spiritual Assessment Type of Contact [] Declined landscape artist visit [] Patient/Family/Request visit [] Outpatient visit [] Follow-up visit [] Physician referral [] Code/Alert [x] Routine visit [] Staff referral [] Actively dying [] Patient sleeping [] Family support [] [] Out of room [] Palliative care [] [] Receiving care in room [] Pre-surgical visit [] Trauma [] Long length of stay [] ICU visit [] Other: Relational/Emotional Strength [x] Patient feels connected with others/family/visitors/staff [] Distress [] Loneliness/isolation [] Abandonment Spirituality of Patient [x] Person of Ruthie [x] Attends Mandaen of their Ruthie [x Believes in Prayer [] Reads Bible or Caodaism materials [] There are Spiritual issues to be addressed Hospital Fellow Interventions [x] Prayer [x] Active listening [x] Non-anxious presence [] Spiritual/emotional support [] Crisis/trauma care [] Spiritual counseling [] Bereavement support [] Provided bereavement packet [] Provided Bible/devotional materials [] Provided toy/stuffed animal, coloring book to patient or family member [] Provided Communion [] Anointing/[place] [] Salvation [x] Completed spiritual assessment [] Other: Impact on Illness or Injury [] Angry [] Fearful [] Anxious [] Often cries [] Exhaustion [] Unable to work [] Unable to attend protestant [] Unable to walk/stand [] Unable to read [] Unable to drive [] Unable to eat/drink [] Unable to sleep [] Unable to be with family [] Patient intubated [] Other: Summary Time spent with patient 10 min
--- NOTE | 2022-06-15 13:45 | PM.PN ---
Subjective Subjective: Seen this morning no acute events overnight. Blood sugar better controlled however still high. Vitals/I&O/Wt Last Vital Signs Temp 98.5 F 06/15/22 11:18 Pulse 90 06/15/22 11:18 Resp 17 06/15/22 11:18 BP 120/70 06/15/22 11:18 Pulse Ox 93 06/15/22 11:18 O2 Del Method 06/15/22 11:18 06/14/22 06/15/22 06/15/22 22:59 06:59 14:59 Intake Total 530 / 1130 240 / 1370 840 / 840 Output Total 2049 250 / 2300 Balance -1520 / -920 -10 / -930 840 / 840 Physical Exam Narrative: General: No acute distress, AO x3 HEENT: EOMI. has a laceration on head. Chest: Cleat to ausculation b/l , no wheezes or ronchi. CVS: S1-S2 regular, no murmurs, no tachycardia, no gallops, no rubs Abdomen: Soft, nontender, bowel sounds present, non tender to palpation Extremities: No bilateral lower extremity edema, cyanosis, very dry skin present. Unkept toenails. Urinary Catheter Management: Woodruff: Cath Placed During This Visit: yes Reason for Continuing Indwelling Catheter: Acute Urinary Retention or Obstruction Urinary Catheter Date of Insertion: 06/09/22 Urinary Catheter Time of Insertion: 18:35 Data 06/15/22 03:41 06/15/22 03:41 A&P Assessment and plan (1) Type 2 diabetes mellitus with hyperglycemia, with long-term current use of insulin: (2) Dehydration: (3) Acute urinary retention: (4) Physical deconditioning: (5) Recurrent falls: Plan Patient brought in when found by home health to be in poor living conditions. Fecal incontinence+, urinary retention+, overall deconditioning and lower extremity weakness. Recurrent falls at home. CT of the lumbar spine showed severe multilevel degenerative changes with formen stenosis. Spine surgeon Dr. Truong consulted to evalaute for possible cord compression. MRI spine ordered. Seen by orthopedic surgery. They would like to follow-up with the patient in 1 week time in their office for continued evaluation of his spinal stenosis. CT head negative for acute intracranial events. Unclear circumstances of recent admission at [facility]. Appear to be related to some abdominal issues. Currently endorsing multiple episodes of diarrhea per day and fecal incontinence.. Diarrhea has resolved. C. difficile is negative, enteric panel is negative. FOBT positive. CPK normal, less likely rhabdomyolysis Urine culture grow gram negative rods. Sensitivity pending. normal TSH 0.69 negative alcohol level and urine drug screen Insulin sliding scale high-dose Continue his home medications including aspirin, dicyclomine, donepezil, duloxetine, gabapentin and mirtazapine. PT OT evaluation and treatment. Lantus 30 units daily. Continue med intensity sliding scale insulin. Full code Disposition: Patient appears to be an extremely high fall risk. He has multiple scrapes and bruises all over which appears to corroborate his history of recurrent falls. Per home health patient's home had no heat. He lives by himself and appears to be high risk for adverse outcomes of discharged without appropriate disposition planning. Attestations Medical Necessity Statement*: Pending placement. Coding Level of Care Code Acute Broom Handle Dipper for g Fwd Diagnoses Type 2 diabetes mellitus with hyperglycemia, with long-term current use of insulin E11.65; Z79.4 Dehydration E86.0 Acute urinary retention R33.8 Physical deconditioning R53.81 Recurrent falls R29.6
[2022-06-15 15:28] VITALS: BP 104/65; PULSE 102; RESP 18; TEMP 36.8; O2SAT 98
[2022-06-15 16:54] LABS: Glucose Point of Care 147 mg/dL (70-110)
[2022-06-15] MEDS: atorvastatin 40 mg Tablet PO (17:32)
[2022-06-15] MEDS: tamsulosin 0.4 mg Capsule 0.8 MG PO (17:32)
[2022-06-15] MEDS: enoxaparin 40 mg/0.4 mL Syringe SUBCUT (17:34)
[2022-06-15] MEDS: cefTRIAXone 1,000 MG in sodium chloride 0.9% (plus) 50 ML 100 MG IV (17:38)
[2022-06-15 20:00] VITALS: BP 106/62; PULSE 104; RESP 18; TEMP 36.9; O2SAT 93
[2022-06-15] MEDS: quetiapine 100 mg Tablet PO (20:21)
[2022-06-15] MEDS: mirtazapine 15 mg Tablet PO (20:21)
[2022-06-15] MEDS: donepezil 5 MG Tablet 10 MG PO (21:56)
[2022-06-15] MEDS: insulin glargine 100 units/1 mL 30 UNIT SUBCUT (23:20)
[2022-06-16] VITALS: BP 114/72; PULSE 99; RESP 20; TEMP 36.9; O2SAT 92
[2022-06-16 03:47] VITALS: BP 118/73; PULSE 94; RESP 15; TEMP 36.8; O2SAT 90
[2022-06-16 06:38] LABS: Glucose Point of Care 228 mg/dL (70-110)
[2022-06-16 07:46] VITALS: BP 138/74; PULSE 96; RESP 16; TEMP 36.5; O2SAT 93
[2022-06-16] MEDS: insulin lispro 100 unit/1 mL SUBCUT ×2 (07:57→11:52)
[2022-06-16 08:00] VITALS: BP 138/74; PULSE 96; RESP 16; TEMP 36.5
[2022-06-16] MEDS: NIFEdipine ER (24 hr) 30 mg Tablet PO (08:00)
[2022-06-16] MEDS: aspirin 81 mg EC Tablet PO (08:00)
[2022-06-16] MEDS: duloxetine 60 mg Capsule PO (08:00)
[2022-06-16] MEDS: ARIPiprazole 10 mg Tablet PO (08:00)
[2022-06-16] MEDS: gabapentin 300 mg Capsule 600 MG PO (08:01)
[2022-06-16] MEDS: pantoprazole DR 40 mg Tablet PO (08:01)
--- NOTE | 2022-06-16 08:26 | PM.DCS ---
Discharge Providers Date of Admission: 06/09/22 17:50 Date of Discharge: June 16, 2022 Attending Provider at Admission: Ani Yepez MD Attending Provider at Discharge: Abimbola Cao MD Primary Care Provider: Mia Lua NP Diagnoses at Discharge Discharge Diagnosis (1) Type 2 diabetes mellitus with hyperglycemia, with long-term current use of insulin: Status: Acute (2) Dehydration: Status: Acute (3) Acute urinary retention: Status: Acute (4) Physical deconditioning: Status: Acute (5) Recurrent falls: Status: Acute Reason for Visit Reason for Visit: not taking medication Brief History: as per jose a Gadiel Hoskins is a 66 year old male with a past medical history of diabetes mellitus, hypertension, brought to the hospital today after called by his home health personnel.? Reportedly patient was very weak, unable to ambulate, he has been urinating and defecating on the floor of his house for the past several days.? He was recently admitted at [facility] for what appears to be abdominal issues.? Reports this to be diarrhea and incontinence.? Estimates he has loose watery bowel movements at least 4-5 times a day.? He does not know what kind of work-up was done.? Unable to contribute significantly to his history at this time.? He is noted to be dehydrated, significantly weak.? Unable to lift his legs off the bed at the time of my assessment.? He also has urinary retention with over 2 L retained in his bladder.? A Ralph was placed upon arrival into the emergency room.? He has several areas of scrapes and bruises all over his body, states that he falls very frequently at home.? States that he last peed yesterday.? Unable to tell me when he last ambulated.? States that he has been laying on the floor for most of the day. Denies any recent chest pain dyspnea or palpitations.? Denies any loss of consciousness at home.? Based on his medications it appears he may have some degree of dementia.? He lives by himself.? Has no sort of help around. Hospital Course Hospital Course Patient brought in when found by home health to be in poor living conditions. Fecal incontinence+, urinary retention+, overall deconditioning and lower extremity weakness.? Recurrent falls at home. CT of the lumbar spine showed severe multilevel degenerative changes with formen stenosis. Spine surgeon Dr. Truong consulted to evalaute for possible cord compression. MRI spine ordered.? Seen by orthopedic surgery.? They would like to follow-up with the patient in 1 week time in their office for continued evaluation of his spinal stenosis. ?CT head negative for acute intracranial events. Unclear circumstances of recent admission at [facility].? Appear to be related to some abdominal issues.?had multiple episodes of diarrhea per day and fecal incontinence..? Diarrhea has resolved.? C. difficile is negative, enteric panel is negative.? FOBT positive. CPK normal, less likely? rhabdomyolysis Urine culture grow gram negative rods. Sensitivity pending. normal TSH 0.69 negative alcohol level and urine drug screen Insulin sliding scale high-dose Continue his home medications including aspirin, dicyclomine, donepezil, duloxetine, gabapentin and mirtazapine. PT OT evaluation and treatment. Lantus 30 units daily.? Continue med intensity sliding scale insulin. Discharge to shelter. Physical Exam Narrative: General: No acute distress, AO x3 HEENT: EOMI. has a laceration on head. Chest: Cleat to ausculation b/l , no wheezes or ronchi. CVS: S1-S2 regular, no murmurs, no tachycardia, no gallops, no rubs Abdomen: Soft, nontender, bowel sounds present, non tender to palpation Extremities: No bilateral lower extremity edema, cyanosis, very dry skin present. Unkept toenails. Urinary Catheter Management: Ralph: Cath Placed During This Visit: yes Reason for Continuing Indwelling Catheter: Acute Urinary Retention or Obstruction Urinary Catheter Date of Insertion: 06/09/22 Urinary Catheter Time of Insertion: 18:35 Discharge Data Studies Completed and Pending Completed Studies During Hospitalization Category Date Time Status CT abdomen pelvis w con* [id number] Urgent Cat Scan 06/09/22 16:[address] head wo con* [id number] Stat Cat Scan 06/09/22 18:[address] lumbar spine wo con* [id number] Stat Cat Scan 06/09/22 18:59 Completed XR chest 1V portable [id number] Routine Exams 06/09/22 18:35 Completed MR lumbar spine wo con* [id number] Routine MRI 06/10/22 11:40 Completed Radiology Impressions Abdomen/Pelvis CT 06/09/22 16:20 IMPRESSION: 1. Severely distended urinary bladder with an estimated volume of 2100 cc. This could represent a neurogenic bladder or urinary bladder outlet obstruction. Catheterization should be considered. 2. Mild left hydronephrosis with no visible calculus. This is most likely related to the distended urinary bladder. 3. Indeterminate 2.0 cm cortical lesion in the inferior left kidney. Recommend non-emergent MRI without and with contrast or non-emergent CT without and with contrast. MRI is preferred for masses under 1.5 cm. 4. Probable small adenomas in the left adrenal gland. Consider 12 month follow-up adrenal CT. (Reference: Martha) References: Martha TORRES, et al. Management of Incidental Adrenal Masses: A White Paper of the ACR Incidental Findings Committee. J Am Alaina Radiol. 2017;14(8):3052-0028. COMMENTS: Consistent with the [employer] [employer]'s Incidental Findings Committee white paper (J Am Alaina Radiol 2018): Any incidental renal lesion less than 1 cm or classified as too small to characterize, or any incidental cystic renal lesion characterized as simple-appearing, is likely benign. No follow-up imaging is recommended for these lesions per consensus recommendations based on imaging criteria. Chest X-Ray 06/09/22 18:35 IMPRESSION: No acute findings. Head CT 06/09/22 18:59 IMPRESSION: No acute intracranial abnormality. Lumbar Spine CT 06/09/22 18:59 IMPRESSION: 1. Negative for fracture or dislocation. 2. L2-L3 broad-based disc bulge with mild spinal canal and bilateral foraminal narrowing. 3. L3-L4 productive degenerative changes resulting in mild spinal canal and moderate to severe bilateral foraminal narrowing. 4. L4-L5 productive degenerative changes resulting in moderate to severe spinal canal and severe bilateral foraminal narrowing. 5. L5/S1 degenerative changes resulting in moderate to severe bilateral foraminal narrowing. Lumbar Spine MRI 06/10/22 11:40 IMPRESSION: 1. Mild lumbar curve. No acute compression. 2. Severe central canal stenosis L3-L4 due to disc bulging in combination with facet arthropathy and prominent ligamentum flavum hypertrophy. This is concordant with the recent CT. Central canal measures approximately 4.5 mm at this level. 3. Moderate central canal stenosis L4-L5 due to disc osteophyte complex in combination with facet arthropathy and prominent dorsal epidural fat. 4. Mild central canal stenosis L2-L3. Slight impingement RIGHT subarticular recess. 5. Moderate RIGHT L3-L4 foraminal narrowing. 6. Moderate LEFT L4-L5 and mild LEFT L5-S1 foraminal narrowing. Laboratory Results WBC 6.6 10^3/uL (4.0-10.0) 06/15/22 03:41 RBC 3.48 10^6/uL (4.1-5.3) L 06/15/22 03:41 Hgb 10.5 g/dL (11.7-16.6) L 06/15/22 03:41 Hct 31.6 % (42.0-52.0) L 06/15/22 03:41 MCV 90.8 fl (80-94) 06/15/22 03:41 MCH 30.2 pg (28.0-34.0) 06/15/22 03:41 MCHC 33.2 g/dL (30.0-36.0) 06/15/22 03:41 RDW 12.4 % (12.1-15.1) 06/15/22 03:41 Plt Count 178 10^3/cmm (130-400) 06/15/22 03:41 MPV 9.1 fL (7.4-10.4) 06/15/22 03:41 Neut % (Auto) 62.6 % 06/15/22 03:41 Lymph % (Auto) 17.4 % 06/15/22 03:41 [place]ata[place] % (Auto) 12.8 % 06/15/22 03:41 Eos % (Auto) 5.2 % 06/15/22 03:41 Baso % (Auto) 0.8 % 06/15/22 03:41 Neut # (Auto) 4.11 10^3/uL (1.8-7.7) 06/15/22 03:41 Lymph # (Auto) 1.1 10^3/uL (0.8-4.8) 06/15/22 03:41 [place] # (Auto) 0.8 10^3/uL (0.2-0.9) 06/15/22 03:41 Eos # (Auto) 0.3 10^3/uL (0.0-0.8) 06/15/22 03:41 Baso # (Auto) 0.1 10^3/uL (0.0-0.1) 06/15/22 03:41 Nucleated RBC % (auto) 0 % 06/15/22 03:41 Nucleated RBCs # 0.0 /100WBC 06/15/22 03:41 Specimen Type Arterial 06/09/22 14:55 Sample Site Radial, right 06/09/22 14:55 ABG pH 7.50 (7.35-7.45) H 06/09/22 14:55 ABG pCO2 28.2 mmHg (35-45) L 06/09/22 14:55 ABG pO2 98.7 mmHg (80.0-100.0) 06/09/22 14:55 ABG HCO3 21.9 mmol/L (22-26) L 06/09/22 14:55 ABG O2 Saturation 97.7 06/09/22 14:55 ABG Base Excess -0.3 mmol/L (-2.0-2.0) 06/09/22 14:55 [place]io Test Pos 06/09/22 14:55 A-a O2 Gradient 1.7 mmHg (5-10) L 06/09/22 14:55 Hematocrit 40.6 % (42-52) L 06/09/22 14:55 Hgb O2 Saturation 96.4 % (95-100) 06/09/22 14:55 Carboxyhemoglobin 0.6 %THgb (0.4-20.1) 06/09/22 14:55 Methemoglobin 0.8 % (0.4-1.5) 06/09/22 14:55 Total Hemoglobin 13.3 g/dL (14-18) L 06/09/22 14:55 Sodium 135.0 mmol/L (131-143) 06/09/22 14:55 Potassium 4.1 mmol/L (3.5-5.0) 06/09/22 14:55 Glucose 315.0 mg/dL (70-115) H 06/09/22 14:55 Ionized Calcium 1.1 mmol/L (1.1-1.4) 06/09/22 14:55 O2 Delivery Device Room air 06/09/22 14:55 FiO2 21.0 % 06/09/22 14:55 Heel Cutter ID glc 06/09/22 14:55 Sodium 134 mmol/L (136-145) L 06/15/22 03:41 Potassium 4.6 mmol/L (3.5-5.1) 06/15/22 03:41 Chloride 98 mmol/L (98-107) 06/15/22 03:41 Carbon Dioxide 28 mmol/L (22-29) 06/15/22 03:41 Anion Gap 12.6 (5-19) 06/15/22 03:41 BUN 19 mg/dL (8-23) 06/15/22 03:41 Creatinine 1.0 mg/dL (0.7-1.2) 06/15/22 03:41 GFR Calculation 74.5 mL/min (90-130) L 06/15/22 03:41 Glucose 266 mg/dL (65-115) H 06/15/22 03:41 POC Glucose 228 mg/dL (70-110) H 06/16/22 06:30 Estimat Average Glucose 217 06/10/22 04:02 Hemoglobin A1c 9.2 % (4.0-6.0) H 06/10/22 04:02 Calculated Osmolality 290 mOsm/kg (285-295) 06/15/22 03:41 Calcium 8.8 mg/dL (8.5-10.5) 06/15/22 03:41 Total Bilirubin 0.5 mg/dL (0.15-1.2) 06/09/22 15:15 AST 9 U/L (0-40) 06/09/22 15:15 ALT 27 U/L (0-41) 06/09/22 15:15 Alkaline Phosphatase 119 U/L (40-130) 06/09/22 15:15 Creatine Kinase 96 U/L (39-308) 06/09/22 15:15 Total Protein 6.7 g/dL (6.6-8.7) 06/09/22 15:15 Albumin 4.0 g/dL (3.5-5.2) 06/09/22 15:15 Globulin 2.7 g/dL (1.3-4.6) 06/09/22 15:15 TSH 0.69 uIU/mL (0.27-4.20) 06/10/22 04:02 Urine Color Yellow (Yellow) 06/09/22 16:45 Urine Appearance Cloudy (CLEAR) A 06/09/22 16:45 Urine pH 5 (5-7) 06/09/22 16:45 Ur Specific [place] 1.020 (1.005-1.030) 06/09/22 16:45 Urine Protein 1+ (Negative) H 06/09/22 16:45 Urine Glucose (UA) 4+ (Normal) H 06/09/22 16:45 Urine Ketones 2+ (Negative) H 06/09/22 16:45 Urine Blood 2+ (Negative) H 06/09/22 16:45 Urine Nitrate Negative (Negative) 06/09/22 16:45 Urine Bilirubin Neg (Negative) 06/09/22 16:45 Urine Urobilinogen Neg mg/dL (Negative) 06/09/22 16:45 Ur Leukocyte Esterase Negative (Negative) 06/09/22 16:45 Urine RBC Rare /hpf (0-2) 06/09/22 16:45 Urine WBC 0-4 /hpf (0-5) H 06/09/22 16:45 Ur Squamous Epith Cells Rare /hpf (0-5) 06/09/22 16:45 Amorphous Sediment Not Reportable 06/09/22 16:45 Urine Bacteria 4+ /hpf (NONE) H 06/09/22 16:45 Urine Opiates Screen Negative ng/mL (Negative) 06/09/22 16:45 Ur Barbiturates Screen Negative ng/mL (Negative) 06/09/22 16:45 Ur Phencyclidine Scrn Negative ng/mL (Negative) 06/09/22 16:45 Ur Amphetamines Screen Negative ng/mL (Negative) 06/09/22 16:45 U Benzodiazepines Scrn Negative ng/mL (Negative) 06/09/22 16:45 Urine Cocaine Screen Negative ng/mL (Negative) 06/09/22 16:45 U Marijuana (THC) Screen Negative ng/mL (Negative) 06/09/22 16:45 Ethyl Alcohol < 10 mg/dL (0-10) 06/09/22 15:15 Influenza Type A Ag negative (Negative) 06/09/22 16:00 Influenza Type B Ag negative (Negative) 06/09/22 16:00 SARS-CoV-2 Ag (Rapid) negative (Negative) 06/09/22 16:00 Vitals Last Vital Signs Temp 97.7 F 06/16/22 07:46 Pulse 96 06/16/22 07:46 Resp 16 06/16/22 07:46 BP 138/74 06/16/22 07:46 Pulse Ox 93 06/16/22 07:46 O2 Del Method 06/16/22 07:46 Discharge Plan Discharge Patient Disposition: Xfer SNF Condition: Stable Prescriptions: New mupirocin 2 % Ointment 1 applic topical BID 7 Days Qty: 5 0RF cefuroxime axetil 500 mg tablet 500 mg PO BID 2 Days Qty: 4 0RF Continued nifedipine 30 mg tablet extended release 24hr 30 mg PO DAILY atorvastatin 40 mg tablet 40 mg PO QPM donepezil 10 mg tablet 10 mg PO BEDTIME quetiapine 100 mg tablet 100 mg PO BEDTIME meloxicam 7.5 mg tablet 7.5 mg PO DAILY famotidine 20 mg tablet 20 mg PO BID tamsulosin 0.4 mg capsule 0.8 mg PO QPM hydrocortisone 1 % cream 1 applic topical BID pantoprazole 40 mg tablet,delayed release (DR/EC) 40 mg PO DAILY gabapentin 300 mg capsule 600 mg PO TID mupirocin 2 % ointment 1 applic TOPICAL . DIRECTED mirtazapine 15 mg tablet 15 mg PO BEDTIME dicyclomine 10 mg capsule 20 mg PO QID PRN (Reason: Cramps) aripiprazole 10 mg tablet 10 mg PO DAILY Novolog Flexpen U-100 Insulin 100 unit/mL (3 mL) insulin pen See Rx Instructions .ROUTE .COMPLEX Rx Instructions: 5 units subcutaneously with meals and at bedtime duloxetine 60 mg capsule,delayed release(DR/EC) 60 mg PO BID Lantus Solostar U-100 Insulin 100 unit/mL (3 mL) insulin pen See Rx Instructions .ROUTE .COMPLEX Rx Instructions: 25 unit subcutaneously qam and 5 units at bedtime aspirin 81 mg Tablet,Delayed Release (Dr/Ec) 81 mg PO DAILY Tradjenta 5 mg tablet 5 mg PO DAILY Discharge Orders: Discharge Order (Routine); Ordered 06/16/22 Ordered By: Abimbola Cao Referrals: Mia Lua NP [Primary Care Provider] - 4-7 days Michael Truong DO [Physician] - 1 week Rob Jurado MD [Physician] - 7-10 days (acute urinary retention, hospital discharge follow up ) Discharge Diet: Advance as tolerated Discharge Activity: Limit activity as instructed and As per PT/OT instructions Activity Restrictions/Additional Instructions: Dr. Truong's instructions: Continue walking program as tolerated. We will see him back in the office in 1 week's time for continued evaluation of his low back and leg weakness. Return to ER if you experience worsening symptoms or new symptoms Follow up with Dr. Jurado in regards to your ralph catheter. Discharge Attestations Time Spent in Discharge Care*: less than 30 min Quality Metrics Clinical Quality Measures [ No reported AMI, CVA or VTE this stay] Coding Level of Care Code Acute Chg FW DC note Diagnoses Type 2 diabetes mellitus with hyperglycemia, with long-term current use of insulin E11.65; Z79.4 Dehydration E86.0 Acute urinary retention R33.8 Physical deconditioning R53.81 Recurrent falls R29.6
[2022-06-16 10:38] LABS: SARS Covid-2 Antigen negative (Negative)
--- NOTE | 2022-06-16 10:58 | PC.SOCIAL ---
Imm update Imm updated with patient at bedside. Copy of page 2 provided. Patient verbalized understanding. Copy in Chart initialed, dated and timed.
[2022-06-16 11:12] LABS: Glucose Point of Care 345 mg/dL (70-110)
[2022-06-16 11:50] VITALS: BP 125/75; PULSE 88; RESP 16; TEMP 36.5; O2SAT 94
--- NOTE | 2022-06-16 12:10 | PC.NURSE ---
1200 EMS here and patient transpoted to [facility] assisted facility, personal belongings and paperwork with EMS.patient in stable condition. Report called to Aishwarya SPIVEY at [facility].
[2022-06-16 12:16] VITALS: BP 125/75; PULSE 88; RESP 16; TEMP 36.5; O2SAT 94
--- NOTE | 2022-06-16 14:52 | PC.OT ---
OT tx attempted - Patient discharged before time of tx on this day.
== END 2022-06-16 12:00 | disposition skilled nursing facility (03) | DRG 638 ==
LOC: ER 18:06 → MEDSURG 19:16
PROVIDERS: Admitting Provider Student in an Organized Health Care Education/Training Program; Emergency Provider Family Medicine; PCP Nurse Practitioner; Visit Provider Internal Medicine
DX: E11.65 Type 2 diabetes mellitus with hyperglycemia (principal); N39.0 Urinary tract infection, site not specified; E86.0 Dehydration; R33.9 Retention of urine, unspecified; R29.6 Repeated falls; I10 Essential (primary) hypertension; F03.90 Unspecified dementia, unspecified severity, without behavioral disturbance, psychotic disturbance, mood disturbance, and anxiety; R15.9 Full incontinence of feces; M48.062 Spinal stenosis, lumbar region with neurogenic claudication; Z79.4 Long term (current) use of insulin; Z79.82 Long term (current) use of aspirin; M51.26 Other intervertebral disc displacement, lumbar region; Z75.1 Person awaiting admission to adequate facility elsewhere; B96.1 Klebsiella pneumoniae [K. pneumoniae] as the cause of diseases classified elsewhere
CPT/HCPCS: 36415; 36416; 36600; 51702; 70450; 71045; 72131; 72148; 74177; 80048; 80051; 80053; 80306; 80307; 81001; 82274; 82330; 82550; 82805; 82962; 83036; 84443; 85025; 87077; 87086; 87186; 87426; 87493; 87506; 87804; 96372; 97110; 97116; 97161; 97166; 97530; 97535; J0696; J1650; J1815; J2405; J7030; Q9967

== ENCOUNTER 2022-10-26 15:44 | Emergency (ER) | payer MEDICARE, MEDICAID, SELFPAY ==
[2022-10-26] VITALS (10 sets, daily range): BP systolic 120–161; BP diastolic 77–109; PULSE 73–90; RESP 16–18; O2SAT 89–98
--- NOTE | 2022-10-26 16:44 | XRR_ITS ---
PROCEDURE INFORMATION: Exam: XR Chest Exam date and time: 10/26/2022 4:53 PM Age: 66 years old Clinical indication: Other: Weakness TECHNIQUE: Imaging protocol: Radiologic exam of the chest. Views: 1 view. COMPARISON: CR XR chest 1V portable [id number] 06/09/2022 6:46 PM FINDINGS: Lungs: Possible right perihilar opacity. Pleural spaces: Unremarkable. No pleural effusion. No pneumothorax. Heart/Mediastinum: Unremarkable. No cardiomegaly. Bones/joints: Unremarkable. XR/XR chest 1V portable [id number] IMPRESSION: Possible right perihilar opacity. Otherwise, no acute findings.
[2022-10-26] MEDS: sodium chloride 0.9% 500 ML IV (16:50)
[2022-10-26] MEDS: ondansetron 2 mg/ML SDV 2 mL 4 MG IVP (16:52)
[2022-10-26 16:57] LABS: Basophils # 0.1 10^3/uL (0.0-0.1); Basophils % 0.7 %; Eosinophils # 0.3 10^3/uL (0.0-0.8); Eosinophils % 4.7 %; Hematocrit 33.9 % (42.0-52.0); Hemoglobin 10.5 g/dL (11.7-16.6); Lymphocytes % 14.1 %; Mean Corpuscular Hemoglobin 28.4 pg (28.0-34.0); Mean Corpuscular Volume 91.6 fl (80-94); Monocytes # 0.5 10^3/uL (0.2-0.9); Monocytes % 7.8 %; Neutrophils # 4.91 10^3/uL (1.8-7.7); Neutrophils % 72.3 %; Nucleated Red Blood Cells % 0 %; Platelet Count 187 10^3/cmm (130-400); White Blood Count 6.8 10^3/uL (4.0-10.0)
--- NOTE | 2022-10-26 17:00 | W.ED.WEAKNES ---
Documented by User: Ran Marsh 10/26/22 18:15 HPI - Weakness General: Chief complaint: Weakness Stated complaint: GENERAL WEAKNESS AFTER TURPS Time Seen by Provider: 10/26/22 16:00 History of Present Illness: 66-year-old male presents emergency department chief complaint of generalized malaise and fatigue and dysuria patient reports he underwent a TURP about 5 weeks ago when she had progressive weakness and fatigue since that time patient does not recall any recent fevers or chills reports no chest pain palpitations or shortness of breath or any other associated symptoms. Associated symptoms: Denies chest pain, chills, fever(s), headache(s), nausea or vomiting Review of Systems General: Reports: 10 or more systems reviewed and unremarkable except in HPI and below Const: Reports: change in appetite, fatigue and malaise; Denies: fever(s) or chills Eyes: Denies: change in vision or blurry vision Card: Denies: chest pain or palpitations Resp: Denies: dyspnea or productive cough GI: Denies: nausea or vomiting : Reports: difficulty urinating and urinary frequency; Denies: flank pain Musc: Denies: extremity pain or extremity swelling Skin/Breast: Denies: rash or pruritus Neuro: Denies: headache(s) Psych: Denies: anxiety or depression Joe/Lymph: Denies: easy bleeding All/Imm: Denies: urticaria, throat swelling or facial swelling PFS ED PFSH: Medical History Hypertension Type 2 diabetes mellitus with hyperglycemia, with long-term current use of insulin Physical Exam Narrative: EXAM NARRATIVE: Patient has a flat affect appears nontoxic afebrile appears in no obvious acute distress Const: COMMON NORMALS: no acute distress, patient oriented x3 and healthy appearing HENMT: COMMON NORMALS: normocephalic and atraumatic HEAD & SCALP: normocephalic and atraumatic Eye: COMMON NORMALS: Equal, round and reactive pupils present and EOMs intact bilaterally PUPIL: Yes Equal, round and reactive pupils present Neck/C-Spine: COMMON NORMALS: full ROM, supple and no JVD Lymph: LYMPHATIC: no lymphadenopathy noted Chest: COMMONS NORMALS: normal inspection of the chest and normal palpation of entire chest wall Resp: COMMON NORMALS: normal respiratory effort, No retractions and clear to auscultation bilaterally EFFORT & INSPECTION: Yes able to speak in complete sentences and Yes symmetric chest movement AUSCULTATION: clear to auscultation bilaterally Cardio: COMMON NORMALS: no JVD, regular rate and regular rhythm RATE: regular rate RHYTHM: regular rhythm GI: OTHER: Generalized abdominal tenderness noted mostly located in the suprapubic region otherwise soft nontender nondistended no CVA tenderness noted : COMMON NORMALS: Yes no CVA tenderness BLADDER/KIDNEY EXAM: Yes no CVA tenderness Back/Pelvis: COMMON NORMALS: no CVA tenderness Extremity: COMMON NORMALS: normal to inspection and full ROM Neuro: COMMON NORMALS: patient oriented x3, CN's II-XII intact bilaterally, moves all extremities and no focal motor deficits Psych: COMMON NORMALS: mental status grossly normal, Normal thought process present, cooperative and normal affect THOUGHT PROCESS: Normal thought process present Skin: COMMON NORMALS: no rashes or lesions noted GENERAL SKIN EXAM: no rashes or lesions noted Course Vital Signs: Vital signs: Vital Signs Pulse Rate 73 10/26/22 19:30 Respiratory Rate 16 10/26/22 19:30 Blood Pressure 161/96 10/26/22 19:30 Pulse Oximetry 93 10/26/22 19:30 Oxygen Delivery Me thod Room Air 10/26/22 19:30 MDM - Weakness Medical Decision Making Due to the patient's symptoms and condition lab work and imaging will be obtained we will continue to follow. Underlying concerns of urinary tract infection is prominent. Currently waiting on lab work and imaging to result this patient was signed out to Dr. Rebolledo at 1811 Lab Data 10/26/22 16:10 10/26/22 16:10 Radiology Impressions Chest X-Ray 10/26/22 16:44 IMPRESSION: Possible right perihilar opacity. Otherwise, no acute findings. Laboratory Results WBC 6.8 10^3/uL (4.0-10.0) 10/26/22 16:10 RBC 3.70 10^6/uL (4.1-5.3) L 10/26/22 16:10 Hgb 10.5 g/dL (11.7-16.6) L 10/26/22 16:10 Hct 33.9 % (42.0-52.0) L 10/26/22 16:10 MCV 91.6 fl (80-94) 10/26/22 16:10 MCH 28.4 pg (28.0-34.0) 10/26/22 16:10 MCHC 31.0 g/dL (30.0-36.0) 10/26/22 16:10 RDW 13.0 % (12.1-15.1) 10/26/22 16:10 Plt Count 187 10^3/cmm (130-400) 10/26/22 16:10 MPV 9.0 fL (7.4-10.4) 10/26/22 16:10 Neut % (Auto) 72.3 % 10/26/22 16:10 Lymph % (Auto) 14.1 % 10/26/22 16:10 [place] % (Auto) 7.8 % 10/26/22 16:10 Eos % (Auto) 4.7 % 10/26/22 16:10 Baso % (Auto) 0.7 % 10/26/22 16:10 Neut # (Auto) 4.91 10^3/uL (1.8-7.7) 10/26/22 16:10 Lymph # (Auto) 1.0 10^3/uL (0.8-4.8) 10/26/22 16:10 [place] # (Auto) 0.5 10^3/uL (0.2-0.9) 10/26/22 16:10 Eos # (Auto) 0.3 10^3/uL (0.0-0.8) 10/26/22 16:10 Baso # (Auto) 0.1 10^3/uL (0.0-0.1) 10/26/22 16:10 Nucleated RBC % (auto) 0 % 10/26/22 16:10 Nucleated RBCs # 0.0 /100WBC 10/26/22 16:10 Sodium 136 mmol/L (136-145) 10/26/22 16:10 Potassium 4.6 mmol/L (3.5-5.1) 10/26/22 16:10 Chloride 102 mmol/L (98-107) 10/26/22 16:10 Carbon Dioxide 26 mmol/L (22-29) 10/26/22 16:10 Anion Gap 12.6 (5-19) 10/26/22 16:10 BUN 28 mg/dL (8-23) H 10/26/22 16:10 Creatinine 1.2 mg/dL (0.7-1.2) 10/26/22 16:10 GFR Calculation 60.4 mL/min (90-130) L 10/26/22 16:10 Glucose 188 mg/dL (65-115) H 10/26/22 16:10 Calculated Osmolality 292 mOsm/kg (285-295) 10/26/22 16:10 Lactate 1.0 mmol/L (0.5-2.2) 10/26/22 17:51 Calcium 8.7 mg/dL (8.5-10.5) 10/26/22 16:10 Total Bilirubin 0.2 mg/dL (0.15-1.2) 10/26/22 16:10 AST 18 U/L (0-40) 10/26/22 16:10 ALT 36 U/L (0-41) 10/26/22 16:10 Alkaline Phosphatase 142 U/L (40-130) H 10/26/22 16:10 C-Reactive Protein 4.9 mg/L (0.0-4.9) 10/26/22 16:10 NT-Pro-B Natriuret Pep 176 pg/mL (0-125) H 10/26/22 16:10 Total Protein 6.4 g/dL (6.6-8.7) L 10/26/22 16:10 Albumin 3.4 g/dL (3.5-5.2) L 10/26/22 16:10 Globulin 3.0 g/dL (1.3-4.6) 10/26/22 16:10 Lipase 76 U/L (13-60) H 10/26/22 16:10 Urine Color Yellow (Yellow) 10/26/22 18:40 Urine Appearance Cloudy (CLEAR) A 10/26/22 18:40 Urine pH 9 (5-7) H 10/26/22 18:40 Ur Specific [place] 1.015 (1.005-1.030) 10/26/22 18:40 Urine Protein Neg (Negative) 10/26/22 18:40 Urine Glucose (UA) 2+ (Normal) H 10/26/22 18:40 Urine Ketones Negative (Negative) 10/26/22 18:40 Urine Blood 3+ (Negative) H 10/26/22 18:40 Urine Nitrate Positive (Negative) H 10/26/22 18:40 Urine Bilirubin Neg (Negative) 10/26/22 18:40 Prot Sulfosalicylic Acd Negative (Negative) 10/26/22 18:40 Urine Urobilinogen Norm mg/dL (Negative) 10/26/22 18:40 Ur Leukocyte Esterase 2+ (Negative) H 10/26/22 18:40 Urine RBC 25-40 /hpf (0-2) H 10/26/22 18:40 Urine WBC 55-80 /hpf (0-5) H 10/26/22 18:40 Ur Squamous Epith Cells None /hpf (0-5) 10/26/22 18:40 Triple Phos Crystals 2 /hpf 10/26/22 18:40 Amorphous Sediment Not Reportable 10/26/22 18:40 Urine Bacteria 4+ /hpf (NONE) H 10/26/22 18:40 Urine Mucus 4+ /hpf 10/26/22 18:40 Discharge Plan Discharge Patient Disposition: Home Clinical Impression: Acute cystitis Condition: Stable Prescriptions: New cephalexin 500 mg capsule 500 mg PO TID 7 Days Qty: 21 0RF No Action nifedipine 30 mg tablet extended release 24hr 30 mg PO DAILY atorvastatin 40 mg tablet 40 mg PO QPM donepezil 10 mg tablet 10 mg PO BEDTIME quetiapine 100 mg tablet 100 mg PO BEDTIME meloxicam 7.5 mg tablet 7.5 mg PO DAILY famotidine 20 mg tablet 20 mg PO BID tamsulosin 0.4 mg capsule 0.8 mg PO QPM hydrocortisone 1 % cream 1 applic topical BID pantoprazole 40 mg tablet,delayed release (DR/EC) 40 mg PO DAILY gabapentin 300 mg capsule 600 mg PO TID mupirocin 2 % ointment 1 applic TOPICAL . DIRECTED mirtazapine 15 mg tablet 15 mg PO BEDTIME dicyclomine 10 mg capsule 20 mg PO QID PRN (Reason: Cramps) aripiprazole 10 mg tablet 10 mg PO DAILY Novolog FlexPen U-100 Insulin 100 unit/mL (3 mL) insulin pen See Rx Instructions .ROUTE .COMPLEX Rx Instructions: 5 units subcutaneously with meals and at bedtime duloxetine 60 mg capsule,delayed release(DR/EC) 60 mg PO BID Lantus Solostar U-100 Insulin 100 unit/mL (3 mL) insulin pen See Rx Instructions .ROUTE .COMPLEX Rx Instructions: 25 unit subcutaneously qam and 5 units at bedtime aspirin 81 mg Tablet,Delayed Release (Dr/Ec) 81 mg PO DAILY Tradjenta 5 mg tablet 5 mg PO DAILY Discharge Orders: Discharge ED (Routine); Ordered 10/26/22 Ordered By: Mandy Rebolledo Referrals: Mia Lua, [employer] [Primary Care Provider] - 1-3 days Discharge Diet: Advance as tolerated Discharge Activity: Resume usual activity Patient Instructions: Urinary Tract Infection in Men (ED) Coding Level of Care Code ED [employer] In[employer] for Chg Fwd Documented by User: Mandy Rebolledo MD 10/26/22 20:07 HPI - Weakness General: Chief complaint: Weakness Stated complaint: GENERAL WEAKNESS AFTER TURPS Time Seen by Provider: 10/26/22 16:00 PFS ED PFSH: Medical History Hypertension Type 2 diabetes mellitus with hyperglycemia, with long-term current use of insulin Course Vital Signs: Vital signs: Vital Signs Pulse Rate 73 10/26/22 19:30 Respiratory Rate 16 10/26/22 19:30 Blood Pressure 161/96 10/26/22 19:30 Pulse Oximetry 93 10/26/22 19:30 Oxygen Delivery Me thod Room Air 10/26/22 19:30 MDM - Weakness Medical Decision Making Due to the patient's symptoms and condition lab work and imaging will be obtained we will continue to follow. Underlying concerns of urinary tract infection is prominent. Currently waiting on lab work and imaging to result this patient was signed out to Dr. Rebolledo at 1815 Patient does have a UTI likely causing his weakness did give him Rocephin here his blood work here is normal no signs of Medical Records I reviewed the patient's medical records. Lab Data I reviewed the patient's lab results. 10/26/22 16:10 10/26/22 16:10 Radiology Impressions Chest X-Ray 10/26/22 16:44 IMPRESSION: Possible right perihilar opacity. Otherwise, no acute findings. Laboratory Results WBC 6.8 10^3/uL (4.0-10.0) 10/26/22 16:10 RBC 3.70 10^6/uL (4.1-5.3) L 10/26/22 16:10 Hgb 10.5 g/dL (11.7-16.6) L 10/26/22 16:10 Hct 33.9 % (42.0-52.0) L 10/26/22 16:10 MCV 91.6 fl (80-94) 10/26/22 16:10 MCH 28.4 pg (28.0-34.0) 10/26/22 16:10 MCHC 31.0 g/dL (30.0-36.0) 10/26/22 16:10 RDW 13.0 % (12.1-15.1) 10/26/22 16:10 Plt Count 187 10^3/cmm (130-400) 10/26/22 16:10 MPV 9.0 fL (7.4-10.4) 10/26/22 16:10 Neut % (Auto) 72.3 % 10/26/22 16:10 Lymph % (Auto) 14.1 % 10/26/22 16:10 [place] % (Auto) 7.8 % 10/26/22 16:10 Eos % (Auto) 4.7 % 10/26/22 16:10 Baso % (Auto) 0.7 % 10/26/22 16:10 Neut # (Auto) 4.91 10^3/uL (1.8-7.7) 10/26/22 16:10 Lymph # (Auto) 1.0 10^3/uL (0.8-4.8) 10/26/22 16:10 [place] # (Auto) 0.5 10^3/uL (0.2-0.9) 10/26/22 16:10 Eos # (Auto) 0.3 10^3/uL (0.0-0.8) 10/26/22 16:10 Baso # (Auto) 0.1 10^3/uL (0.0-0.1) 10/26/22 16:10 Nucleated RBC % (auto) 0 % 10/26/22 16:10 Nucleated RBCs # 0.0 /100WBC 10/26/22 16:10 Sodium 136 mmol/L (136-145) 10/26/22 16:10 Potassium 4.6 mmol/L (3.5-5.1) 10/26/22 16:10 Chloride 102 mmol/L (98-107) 10/26/22 16:10 Carbon Dioxide 26 mmol/L (22-29) 10/26/22 16:10 Anion Gap 12.6 (5-19) 10/26/22 16:10 BUN 28 mg/dL (8-23) H 10/26/22 16:10 Creatinine 1.2 mg/dL (0.7-1.2) 10/26/22 16:10 GFR Calculation 60.4 mL/min (90-130) L 10/26/22 16:10 Glucose 188 mg/dL (65-115) H 10/26/22 16:10 Calculated Osmolality 292 mOsm/kg (285-295) 10/26/22 16:10 Lactate 1.0 mmol/L (0.5-2.2) 10/26/22 17:51 Calcium 8.7 mg/dL (8.5-10.5) 10/26/22 16:10 Total Bilirubin 0.2 mg/dL (0.15-1.2) 10/26/22 16:10 AST 18 U/L (0-40) 10/26/22 16:10 ALT 36 U/L (0-41) 10/26/22 16:10 Alkaline Phosphatase 142 U/L (40-130) H 10/26/22 16:10 C-Reactive Protein 4.9 mg/L (0.0-4.9) 10/26/22 16:10 NT-Pro-B Natriuret Pep 176 pg/mL (0-125) H 10/26/22 16:10 Total Protein 6.4 g/dL (6.6-8.7) L 10/26/22 16:10 Albumin 3.4 g/dL (3.5-5.2) L 10/26/22 16:10 Globulin 3.0 g/dL (1.3-4.6) 10/26/22 16:10 Lipase 76 U/L (13-60) H 10/26/22 16:10 Urine Color Yellow (Yellow) 10/26/22 18:40 Urine Appearance Cloudy (CLEAR) A 10/26/22 18:40 Urine pH 9 (5-7) H 10/26/22 18:40 Ur Specific [place] 1.015 (1.005-1.030) 10/26/22 18:40 Urine Protein Neg (Negative) 10/26/22 18:40 Urine Glucose (UA) 2+ (Normal) H 10/26/22 18:40 Urine Ketones Negative (Negative) 10/26/22 18:40 Urine Blood 3+ (Negative) H 10/26/22 18:40 Urine Nitrate Positive (Negative) H 10/26/22 18:40 Urine Bilirubin Neg (Negative) 10/26/22 18:40 Prot Sulfosalicylic Acd Negative (Negative) 10/26/22 18:40 Urine Urobilinogen Norm mg/dL (Negative) 10/26/22 18:40 Ur Leukocyte Esterase 2+ (Negative) H 10/26/22 18:40 Urine RBC 25-40 /hpf (0-2) H 10/26/22 18:40 Urine WBC 55-80 /hpf (0-5) H 10/26/22 18:40 Ur Squamous Epith Cells None /hpf (0-5) 10/26/22 18:40 Triple Phos Crystals 2 /hpf 10/26/22 18:40 Amorphous Sediment Not Reportable 10/26/22 18:40 Urine Bacteria 4+ /hpf (NONE) H 10/26/22 18:40 Urine Mucus 4+ /hpf 10/26/22 18:40 Discharge Plan Discharge Patient Disposition: Home Clinical Impression: Acute cystitis Condition: Stable Prescriptions: New cephalexin 500 mg capsule 500 mg PO TID 7 Days Qty: 21 0RF No Action nifedipine 30 mg tablet extended release 24hr 30 mg PO DAILY atorvastatin 40 mg tablet 40 mg PO QPM donepezil 10 mg tablet 10 mg PO BEDTIME quetiapine 100 mg tablet 100 mg PO BEDTIME meloxicam 7.5 mg tablet 7.5 mg PO DAILY famotidine 20 mg tablet 20 mg PO BID tamsulosin 0.4 mg capsule 0.8 mg PO QPM hydrocortisone 1 % cream 1 applic topical BID pantoprazole 40 mg tablet,delayed release (DR/EC) 40 mg PO DAILY gabapentin 300 mg capsule 600 mg PO TID mupirocin 2 % ointment 1 applic TOPICAL . DIRECTED mirtazapine 15 mg tablet 15 mg PO BEDTIME dicyclomine 10 mg capsule 20 mg PO QID PRN (Reason: Cramps) aripiprazole 10 mg tablet 10 mg PO DAILY Novolog FlexPen U-100 Insulin 100 unit/mL (3 mL) insulin pen See Rx Instructions .ROUTE .COMPLEX Rx Instructions: 5 units subcutaneously with meals and at bedtime duloxetine 60 mg capsule,delayed release(DR/EC) 60 mg PO BID Lantus Solostar U-100 Insulin 100 unit/mL (3 mL) insulin pen See Rx Instructions .ROUTE .COMPLEX Rx Instructions: 25 unit subcutaneously qam and 5 units at bedtime aspirin 81 mg Tablet,Delayed Release (Dr/Ec) 81 mg PO DAILY Tradjenta 5 mg tablet 5 mg PO DAILY Discharge Orders: Discharge ED (Routine); Ordered 10/26/22 Ordered By: Mandy Rebolledo Referrals: Mia Lua NP [Primary Care Provider] - 1-3 days Discharge Diet: Advance as tolerated Discharge Activity: Resume usual activity Patient Instructions: Urinary Tract Infection in Men (ED) Coding Level of Care Code 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
--- NOTE | 2022-10-26 17:07 | CTR_ITS ---
PROCEDURE INFORMATION: Exam: CT Chest With Contrast; Diagnostic Exam date and time: 10/26/2022 7:12 PM Age: 66 years old Clinical indication: Abdominal pain; Generalized; Other: Perihilar opacity; Prior surgery; Surgery date: 6+ months; Surgery type: Kitty; Additional info: Right perihilar opacity with abdominal pain post turp TECHNIQUE: Imaging protocol: Diagnostic computed tomography of the chest with contrast. Radiation optimization: All CT scans at this facility use at least one of these dose optimization techniques: automated exposure control; mA and/or kV adjustment per patient size (includes targeted exams where dose is matched to clinical indication); or iterative reconstruction. Contrast material: OMNI 350; Contrast volume: 100 ml; Contrast route: INTRAVENOUS (IV); REPORTING DATA: Count of CT and Cardiac NM exams in prior 12 months: This patient has received 3 known CTs and 0 known cardiac nuclear medicine studies in the 12 months prior to the current study. COMPARISON: CR XR chest 1V portable [id number] 10/26/2022 4:53 PM RADIATION DOSE METRICS: Total DLP (mGy-cm): 1734 FINDINGS: Lungs: Mild lung base atelectasis or scarring. Pleural spaces: No pneumothorax. No pleural effusion. Heart: The heart is normal size. No pericardial effusion. Lymph nodes: No bulky mediastinal or hilar lymphadenopathy noted. Vasculature: Advanced diffuse vascular calcification noted. Diaphragm: Tiny hiatal hernia. Bones/joints: No acute fracture. Soft tissues: Unremarkable. PROCEDURE INFORMATION: Exam: CT Abdomen And Pelvis With Contrast Exam date and time: 10/26/2022 7:12 PM Age: 66 years old Clinical indication: Abdominal pain; Generalized; Other: Perihilar opacity; Prior surgery; Surgery date: 6+ months; Surgery type: Kitty; Additional info: Right perihilar opacity with abdominal pain post turp TECHNIQUE: Imaging protocol: Computed tomography of the abdomen and pelvis with contrast. Radiation optimization: All CT scans at this facility use at least one of these dose optimization techniques: automated exposure control; mA and/or kV adjustment per patient size (includes targeted exams where dose is matched to clinical indication); or iterative reconstruction. Contrast material: OMNI 350; Contrast volume: 100 ml; Contrast route: INTRAVENOUS (IV); REPORTING DATA: Count of CT and Cardiac NM exams in prior 12 months: This patient has received 3 known CTs and 0 known cardiac nuclear medicine studies in the 12 months prior to the current study. COMPARISON: CT abdomen pelvis w con* [id number] 06/09/2022 4:50 PM RADIATION DOSE METRICS: Total DLP (mGy-cm): 1734 FINDINGS: Lungs: The visualized lung bases are clear. Liver: Unremarkable. No enhancing mass. Gallbladder and bile ducts: Absent gallbladder. Pancreas: Unremarkable with no suspicious mass. No ductal dilation. Spleen: The spleen is not enlarged. No suspicious enhancing mass is noted. Adrenal glands: Unchanged left adrenal nodular hyperplasia. Kidneys and ureters: Minute left renal cyst measures 8 mm. Unchanged left lower renal exophytic 2.1 cm fairly dense lesion. No new enhancing mass or hydronephrosis. Stomach and bowel: Mild left colon wall thickening. No small bowel wall thickening. Appendix: No evidence of appendicitis. Intraperitoneal space: Unremarkable. No free air. No suspicious fluid collection. Vasculature: No AAA or acute vascular lesion identified. Lymph nodes: A few right groin nodes measure up to 2.2 cm. Urinary bladder: Woodruff catheter present in a collapsed bladder. There is moderate bladder wall thickening. Reproductive: Recent TURP procedure with Woodruff catheter, collapsed bladder, and moderate bladder wall thickening. Bones/joints: Moderate spine DJD. Soft tissues: Moderate fat umbilical hernia. CT/CT chest abdpel w/*[id number] IMPRESSION: No acute finding. IMPRESSION: 1. Recent TURP procedure with Woodruff catheter, collapsed bladder, and moderate bladder wall thickening. 2. Mild left-sided colitis. No small bowel obstruction, abscess or free air. 3. A few chronic findings above. Left lower renal 2 cm lesion. This has not grown. Recommend outpatient ultrasound characterization. COMMENTS: Consistent with the [employer]'s Incidental Findings Committee white paper (J Am Alaina Radiol 2018): Any incidental renal lesion less than 1 cm or classified as too small to characterize, or any incidental cystic renal lesion characterized as simple-appearing, is likely benign. No follow-up imaging is recommended for these lesions per consensus recommendations based on imaging criteria.
[2022-10-26 17:52] LABS: Alanine Aminotransferase 36 U/L (0-41); Albumin Level 3.4 g/dL (3.5-5.2); Alkaline Phosphatase 142 U/L (40-130); Anion Gap 12.6 (5-19); Aspartate Amino Transferase 18 U/L (0-40); Blood Urea Nitrogen 28 mg/dL (8-23); C Reactive Protein 4.9 mg/L (0.0-4.9); Calcium 8.7 mg/dL (8.5-10.5); Carbon Dioxide 26 mmol/L (22-29); Chloride 102 mmol/L (98-107); Glomerular Filtration Rate 60.4 mL/min (90-130); Glucose 188 mg/dL (65-115); Lipase 76 U/L (13-60); NT Pro B Type Natriuretic Pept 176 pg/mL (0-125); Osmolality Calculated 292 mOsm/kg (285-295); Potassium 4.6 mmol/L (3.5-5.1); Sodium 136 mmol/L (136-145); Total Bilirubin 0.2 mg/dL (0.15-1.2); Total Protein 6.4 g/dL (6.6-8.7)
[2022-10-26] MEDS: iohexol 350 mg/mL 500 mL Btl (per mL) IV (19:25)
--- NOTE | 2022-10-26 19:43 | PC.NURSE ---
Pt report received from Shane Richards RN. Pt resting in bed on rounding; VS taken, Pt readjusted in bed, pillow given, update given.
[2022-10-26 19:46] LABS: Specific Gravity, Urine 1.015 (1.005-1.030); Urine Appearance Cloudy (CLEAR); Urine Color Yellow (Yellow); pH Urine 9 (5-7)
[2022-10-26 19:47] LABS: Add Urine Microscopic? YES; Bacteria Urine 4+ /hpf; Bilirubin Urine Neg (Negative); Blood Urine 3+ (Negative); Glucose Urine UA 2+ (Normal); Ketones Urine Negative (Negative); Leukocyte Esterase Urine 2+ (Negative); Nitrate Urine Positive (Negative); Protein Urine Neg (Negative); RBC Urine 25-40 /hpf (0-2); Sulfosalicylic Acid Urine Negative (Negative); Urobilinogen Urine Norm (Negative); WBC Urine 55-80 /hpf (0-5)
[2022-10-26 19:48] LABS: Add Urine Culture? Yes; Mucus Urine 4+ /hpf; Triple Phosphate Crystal Urine 2 /hpf
[2022-10-26] MEDS: cefTRIAXone 1,000 MG in sodium chloride 0.9% (plus) 50 ML 100 MG IV (20:21)
[2022-10-26] MEDS: hyDRALAzine 20 mg/mL INJ 1 mL 10 MG IVP (20:58)
== END 2022-10-26 21:48 | disposition home or self-care (01) ==
PROVIDERS: Emergency Medicine; Emergency Provider Emergency Medicine; PCP Nurse Practitioner
DX: N30.00 Acute cystitis without hematuria (principal); Z79.82 Long term (current) use of aspirin; Z79.4 Long term (current) use of insulin; I10 Essential (primary) hypertension; E11.9 Type 2 diabetes mellitus without complications
CPT/HCPCS: 71045; 71260; 74177; 80053; 81001; 83605; 83690; 83880; 85025; 86140; 87077; 87086; 87186; 96361; 96365; 96375; 99285; J0360; J0696; J2405; J7040; Q9967

== ENCOUNTER 2022-11-09 08:51 | Emergency (ER) | payer MEDICARE, MEDICAID, SELFPAY ==
[2022-11-09] VITALS (25 sets, daily range): BP systolic 134–171; BP diastolic 60–92; PULSE 78–93; RESP 9–27; TEMP 36.6; O2SAT 86–96; BMI 41.5
--- NOTE | 2022-11-09 08:53 | ECG_ITS ---
[facility] Test Date: 2022-11-09 Pat Name: Gadiel Hoskins Department: Room: Gender: Male Day Care Provider: : 1955 Requested By: Heron Mcneill Order Number: [id number] Natali MD: Rangel Green M.D. 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 [id number] f
--- NOTE | 2022-11-09 09:07 | XRR_ITS ---
PROCEDURE INFORMATION: Exam: XR Chest Exam date and time: 11/09/2022 9:12 AM Age: 67 years old Clinical indication: Pain; Angina pectoris; Prior surgery; Surgery date: 6+ months; Surgery type: Gb; Additional info: Chest pain TECHNIQUE: Imaging protocol: Radiologic exam of the chest. Views: 1 view. COMPARISON: CT chest abdpel w/*[id number] 10/26/2022 7:12 PM FINDINGS: Lungs: No focal airspace disease. Pleural spaces: Unremarkable. No pleural effusion. No pneumothorax. Heart/Mediastinum: Cardiomediastinal silhouette is within normal limits. Bones/joints: Unremarkable. XR/XR chest 1V portable [id number] IMPRESSION: No acute cardiopulmonary abnormality.
--- NOTE | 2022-11-09 09:09 | W.ED.WEAKNES ---
HPI - Weakness General: Chief complaint: Weakness Stated complaint: CHEST PAIN Time Seen by Provider: 11/09/22 08:56 Source: patient Mode of arrival: ambulatory History of Present Illness: 67-year-old male presents emergency room. When I talked to him he is complaining of chest comfort when he walks or does any activity resolves with rest after about 20 minutes. He gets accompanying shortness of breath but no radiation of pain. EMS report was that the intermediate staff had called stating he had left-sided facial droop and weakness they did not find that at all when he arrived there they felt that there EKG showed some ST elevation I reviewed their EKG and are repeated and not appreciate any significant ST elevation he is pain-free at this time. He did receive aspirin and Zofran in route. He denies any abdominal pain. He has no focal neurologic deficits on initial evaluation. MD Complaint: generalized weakness Onset (ago): hour(s) Relieving factors: rest Exacerbating factors: exertion Associated symptoms: Reports chest pain; Denies chills, confusion, melena, decreased appetite, diaphoresis, dysuria, easy bruising, fever(s), headache(s), myalgias, nausea, rash, short of breath, syncope or vomiting Review of Systems Const: Denies: fever(s), chills, fatigue, malaise or diaphoresis ENMT: Denies: throat pain, ear or mastoid pain, nasal discharge or nasal congestion Card: Reports: chest pain and edema; Denies: palpitations, irregular heart rhythm or syncope Resp: Denies: dyspnea, productive cough or non-productive cough GI: Denies: abdominal pain, nausea, vomiting or melena : Denies: dysuria, urinary frequency or urinary urgency Skin/Breast: Denies: rash or pruritus Neuro: Denies: headache(s) or confusion Joe/Lymph: Denies: easy bruising PFS ED PFSH: Medical History Hypertension Type 2 diabetes mellitus with hyperglycemia, with long-term current use of insulin Physical Exam Const: COMMON NORMALS: no acute distress GENERAL APPEARANCE: cooperative and comfortable ORIENTATION/CONSCIOUSNESS: Yes awake, Yes oriented to person, Yes oriented to place and Yes oriented to time HENMT: COMMON NORMALS: normocephalic, atraumatic and hearing grossly normal bilaterally HEAD & SCALP: normocephalic and atraumatic Resp: COMMON NORMALS: normal respiratory effort, No retractions, No use of accessory muscles and clear to auscultation bilaterally AUSCULTATION: clear to auscultation bilaterally Cardio: COMMON NORMALS: regular rate, regular rhythm and No murmurs present (Cardio) RATE: regular rate RHYTHM: regular rhythm GI: COMMON NORMALS: Soft to palpation and No hepatosplenomegaly present AUSCULTATION: Yes normoactive bowel sounds PALPATION: Yes Soft to palpation, No Tenderness to palpation present (GI), No Guarding due to palpation present (GI) and Yes No hepatosplenomegaly present Extremity: COMMON NORMALS: normal to inspection, capillary refill normal, no clubbing, cyanosis or edema, no calf tenderness and no pedal edema Neuro: SENSORIUM/ORIENTATION: Yes oriented to person, Yes oriented to place and Yes oriented to time Skin: COMMON NORMALS: no rashes or lesions noted GENERAL SKIN EXAM: no rashes or lesions noted Course Vital Signs: Vital signs: Vital Signs Temperature 97.8 F 11/09/22 08:52 Pulse Rate 86 11/09/22 13:15 Respiratory Rate 18 11/09/22 13:15 Blood Pressure 159/83 11/09/22 13:15 Pulse Oximetry 91 11/09/22 13:15 Oxygen Delivery Me thod Room Air 11/09/22 09:19 MDM - Weakness Medical Decision Making Seen today for weakness and generally not feeling well. No further episodes of chest pain. Trop I was neg, no acute EKG changes. discharge home w antiemetics. Follow up with your PCP within the week Medical Records I reviewed the patient's medical records. Lab Data I reviewed the patient's lab results. 11/09/22 09:01 11/09/22 09:01 Radiology Impressions Chest X-Ray 11/09/22 09:07 IMPRESSION: No acute cardiopulmonary abnormality. Gallbladder Ultrasound 11/09/22 11:15 IMPRESSION: 1. Prior cholecystectomy. 2. No bile duct dilatation. 3. Negative liver. Laboratory Results WBC 6.8 10^3/uL (4.0-10.0) 11/09/22 09:01 RBC 4.05 10^6/uL (4.1-5.3) L 11/09/22 09:01 Hgb 11.3 g/dL (11.7-16.6) L 11/09/22 09: Hct 35.3 % (42.0-52.0) L 11/09/22 09: MCV 87.2 fl (80-94) 11/09/22 09: MCH 27.9 pg (28.0-34.0) L 11/09/22 09: MCHC 32.0 g/dL (30.0-36.0) 11/09/22 09: RDW 13.0 % (12.1-15.1) 11/09/22 09: Plt Count 174 10^3/cmm (130-400) 11/09/22 09: MPV 9.0 fL (7.4-10.4) 11/09/22 09:01 Neut % (Auto) 68.1 % 11/09/22 09:01 Lymph % (Auto) 14.0 % 11/09/22 09: [place] % (Auto) 7.2 % 11/09/22 09:01 Eos % (Auto) 9.7 % 11/09/22 09:01 Baso % (Auto) 0.7 % 11/09/22 09:01 Neut # (Auto) 4.63 10^3/uL (1.8-7.7) 11/09/22 09:01 Lymph # (Auto) 1.0 10^3/uL (0.8-4.8) 11/09/22 09:01 [place] # (Auto) 0.5 10^3/uL (0.2-0.9) 11/09/22 09:01 Eos # (Auto) 0.7 10^3/uL (0.0-0.8) 11/09/22 09:01 Baso # (Auto) 0.1 10^3/uL (0.0-0.1) 11/09/22 09:01 Nucleated RBC % (auto) 0 % 11/09/22 09: Nucleated RBCs # 0.0 /100WBC 11/09/22 09:01 Sodium 139 mmol/L (136-145) 11/09/22 09:01 Potassium 4.7 mmol/L (3.5-5.1) 11/09/22 09:01 Chloride 99 mmol/L (98-107) 11/09/22 09:01 Carbon Dioxide 31 mmol/L (22-29) H 11/09/22 09:01 Anion Gap 13.7 (5-19) 11/09/22 09:01 BUN 26 mg/dL (8-23) H 11/09/22 09:01 Creatinine 1.1 mg/dL (0.7-1.2) 11/09/22 09:01 GFR Calculation 66.6 mL/min (90-130) L 11/09/22 09:01 Glucose 250 mg/dL (65-115) H 11/09/22 09:01 Calculated Osmolality 301 mOsm/kg (285-295) H 11/09/22 09:01 Calcium 9.1 mg/dL (8.5-10.5) 11/09/22 09:01 Total Bilirubin 0.3 mg/dL (0.15-1.2) 11/09/22 09:01 AST 18 U/L (0-40) 11/09/22 09:01 ALT 43 U/L (0-41) H 11/09/22 09:01 Alkaline Phosphatase 167 U/L (40-130) H 11/09/22 09:01 Troponin T Baseline 58 ng/L (0-15) H 11/09/22 09:01 Troponin T 120 Minute 53.34 ng/L (0-15) H 11/09/22 11:27 Delta Troponin T -4.66 ABS# (0-10) L 11/09/22 11:27 Total Protein 6.3 g/dL (6.6-8.7) L 11/09/22 09:01 Albumin 3.6 g/dL (3.5-5.2) 11/09/22 09:01 Globulin 2.7 g/dL (1.3-4.6) 11/09/22 09:01 Discharge Plan Discharge Patient Disposition: Home Clinical Impression: Atypical chest pain, Gastroenteritis Condition: Stable Prescriptions: New promethazine 25 mg tablet 25 mg PO Q6H PRN (Reason: nausea and vomiting) Qty: 20 0RF isosorbide mononitrate 30 mg tablet extended release 24 hr 30 mg PO DAILY Qty: 30 0RF No Action atorvastatin 40 mg tablet 40 mg PO QPM donepezil 10 mg tablet 10 mg PO BEDTIME quetiapine 100 mg tablet 100 mg PO BEDTIME meloxicam 7.5 mg tablet 7.5 mg PO DAILY famotidine 20 mg tablet 20 mg PO BID tamsulosin 0.4 mg capsule 0.8 mg PO QPM pantoprazole 40 mg tablet,delayed release (DR/EC) 40 mg PO DAILY gabapentin 300 mg capsule 600 mg PO TID mupirocin 2 % ointment 1 applic TOPICAL . DIRECTED mirtazapine 15 mg tablet 15 mg PO BEDTIME dicyclomine 10 mg capsule 20 mg PO QID PRN (Reason: Cramps) aripiprazole 10 mg tablet 10 mg PO DAILY insulin aspart U-100 [Novolog FlexPen U-100 Insulin] 100 unit/mL (3 mL) insulin pen See Rx Instructions .ROUTE .COMPLEX Rx Instructions: 5 units subcutaneously with meals and at bedtime duloxetine 60 mg capsule,delayed release(DR/EC) 60 mg PO BID insulin glargine [Lantus Solostar U-100 Insulin] 100 unit/mL (3 mL) insulin pen See Rx Instructions .ROUTE .COMPLEX Rx Instructions: 25 unit subcutaneously qam and 15 units at bedtime aspirin 81 mg Tablet,Delayed Release (Dr/Ec) 81 mg PO DAILY Tradjenta 5 mg tablet 5 mg PO DAILY ondansetron HCl 4 mg tablet 4 mg PO Q6H oxycodone 5 mg tablet 5 mg PO Q6H PRN (Reason: Pain) Vitamin D3 50 mcg (2,000 unit) Capsule 50 mcg PO DAILY furosemide 40 mg Tablet 40 mg PO DAILY acetaminophen 325 mg Tablet 650 mg PO QID PRN (Reason: Pain) Imodium 2 mg Capsule 2 mg PO Q6H PRN (Reason: Diarrhea) Robitussin 100 mg/5 mL Liquid 200 mg PO Q4H PRN (Reason: Cough) potassium chloride 20 mEq tablet,ER particles/crystals 20 meq PO DAILY Milk of Magnesia 400 mg/5 mL Suspension 30 ml PO BID PRN (Reason: Constipation) Dulcolax (bisacodyl) 10 mg Suppository 10 mg MA DAILY PRN (Reason: Constipation) Phenergan 25 mg Tablet 25 mg PO Q6H PRN (Reason: Nausea And Vomiting) Dulcolax (bisacodyl) 5 mg Tablet,Delayed Release (Dr/Ec) 5 mg PO DAILY PRN (Reason: Constipation) Mylanta 200-200-20 mg/5 mL Suspension 30 ml PO QID PRN (Reason: Constipation) Rx Instructions: administer between meals and at bedtime Discharge Orders: Discharge ED (Routine); Ordered 11/09/22 Ordered By: Heron Nowak Referrals: Mia Lua, MEDICAID COLLECTION SPECIALIST [Primary Care Provider] - Discharge Diet: Usual diet Discharge Activity: Resume usual activity Patient Instructions: Opioid Safety, Pain Management Activity Restrictions/Additional Instructions: You are seen today for chest discomfort with nausea and vomiting. Your EKGs and cardiac enzymes did not show acute coronary syndrome. We will discharge you home with promethazine to use as needed. We will also make arrangements for you to have a follow-up outpatient Lexiscan sestamibi stress test. Coding Level of Care Code ED Cleaning Associate for Babita Berry
[2022-11-09 09:59] LABS: Alanine Aminotransferase 43 U/L (0-41); Albumin Level 3.6 g/dL (3.5-5.2); Alkaline Phosphatase 167 U/L (40-130); Anion Gap 13.7 (5-19); Aspartate Amino Transferase 18 U/L (0-40); Blood Urea Nitrogen 26 mg/dL (8-23); Calcium 9.1 mg/dL (8.5-10.5); Carbon Dioxide 31 mmol/L (22-29); Chloride 99 mmol/L (98-107); Globulin 2.7 g/dL (1.3-4.6); Glomerular Filtration Rate 66.6 mL/min (90-130); Glucose 250 mg/dL (65-115); Osmolality Calculated 301 mOsm/kg (285-295); Potassium 4.7 mmol/L (3.5-5.1); Sodium 139 mmol/L (136-145); Total Bilirubin 0.3 mg/dL (0.15-1.2); Total Protein 6.3 g/dL (6.6-8.7)
[2022-11-09 10:29] LABS: Basophils # 0.1 10^3/uL (0.0-0.1); Basophils % 0.7 %; Eosinophils # 0.7 10^3/uL (0.0-0.8); Eosinophils % 9.7 %; Hematocrit 35.3 % (42.0-52.0); Hemoglobin 11.3 g/dL (11.7-16.6); Mean Corpuscular Hemoglobin 27.9 pg (28.0-34.0); Mean Corpuscular Volume 87.2 fl (80-94); Monocytes # 0.5 10^3/uL (0.2-0.9); Monocytes % 7.2 %; Neutrophils # 4.63 10^3/uL (1.8-7.7); Neutrophils % 68.1 %; Nucleated Red Blood Cells % 0 %; Platelet Count 174 10^3/cmm (130-400); Red Blood Count 4.05 10^6/uL (4.1-5.3); White Blood Count 6.8 10^3/uL (4.0-10.0)
[2022-11-09 10:50] LABS: Troponin(5th) Baseline 58 ng/L (0-15)
--- NOTE | 2022-11-09 11:05 | ECG_ITS ---
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 Measurements Intervals [place] Rate: 85 P: 174 [place]: 175 QRS: 24 QRSD: 93 T: 150 QT: 334 QTc: 398 Interpretive Statements ECTOPIC ATRIAL RHYTHM POSSIBLE LATERAL MYOCARDIAL INFARCTION , OF INDETERMINATE AGE [30 ms Q WAVE IN I/aVL/V5/V6] Compared to ECG 11/09/2022 08:53:02 Ectopic atrial rhythm now present Sinus rhythm no longer present Myocardial infarct finding still present Electronically Signed On 11-09-2022 17:58:40 CDT by Rangel Green M.D. [id number]
--- NOTE | 2022-11-09 11:15 | US_ITS ---
WS: [id number] RIGHT UPPER QUADRANT ULTRASOUND HISTORY: elevated transaminases COMPARISON: None available. Liver: 17.7 cm in length. Normal size liver and echogenicity. No bile duct dilatation or mass. Portal Vein: Normal hepatopetal flow with monophasic waveform. Gallbladder: Status post cholecystectomy. CBD: 0.4 cm Pancreas: Tail is obscured. The remaining pancreas is normal. Right kidney: 10.4 cm in length. Normal size and echogenicity. No hydronephrosis or mass. Aorta and IVC: Unremarkable abdominal aorta and IVC. No ascites. US/US gall bladder [id number] IMPRESSION: 1. Prior cholecystectomy. 2. No bile duct dilatation. 3. Negative liver.
[2022-11-09 12:19] LABS: Troponin 5 2HR 53.34 ng/L (0-15)
[2022-11-09 12:23] LABS: Troponin 5 2HR Delta -4.66 ABS# (0-10)
[2022-11-09] MEDS: promethazine 25 mg/mL SDV 1 mL IM (13:17)
--- NOTE | 2022-11-09 15:24 | PC.NURSE ---
Addendum entered by Estefanía Pérez 02/09/23 12:12: Patient had a stress test scheduled and he attended the stress test Original Note: Patient seen in the ED on 11/09/22 for atypical chest pain. Referral for stress test sent to centralized scheduling. They will call patient with an appt.
== END 2022-11-09 20:11 | disposition home or self-care (01) ==
PROVIDERS: Emergency Provider Family Medicine; PCP Nurse Practitioner
DX: R07.89 Other chest pain (principal); K52.9 Noninfective gastroenteritis and colitis, unspecified
CPT/HCPCS: 36415; 71045; 76705; 80053; 84484; 85025; 93005; 96372; 99285; J2550

== ENCOUNTER 2022-12-14 08:13 | Outpatient (CLI) | payer MEDICARE, MEDICAID, SELFPAY ==
--- NOTE | 2022-12-14 | ECG_ITS ---
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 Interpretive Statements NAME OF STUDY: LEXISCAN SESTAMIBI STRESS TEST INDICATION: [Atypical Chest Pain] PROCEDURE: At the baseline, the blood pressure was 127/86 mm Hg with a heart rate of 85 bpm. The electrocardiogram showed sinus rhythm, non specific ST changes. ??? The Lexiscan was infused over a period of 20 seconds. A total of 0.4 milligrams of Lexiscan was infused. The stress phase was continued for a total of 5 minutes. Heart rate at the end of the stress phase was 90 bpm with a blood pressure of 117/67 mm Hg. The EKG at the peak infusion revealed no significant ST changes. ??? Sestamibi was injected 20 seconds after the Lexiscan infusion. ??? Blood pressure at the end of the recovery phase was 105/64 mm Hg with a heart rate of 88 beats per minute. ??? CONCLUSION: 1. No significant EKG changes with the LexiScan infusion. 2. No LexiScan induced chest pain or cardiac arrhythmia. 3. Normal blood pressure and heart rate response. 4. Sestamibi/sestamibi perfusion scan pending; see separate report. Electronically Signed On 12-17-2022 9:17:02 CDT by Jolene Sy M.D. [id number]
[2022-12-14 08:18] VITALS: BMI 35.2
--- NOTE | 2022-12-14 08:27 | NMCV_ITS ---
NM ayo perf SPECT r/s* [id number] Gadiel Hoskins Age: 67 Gender: M : 1955 Exam Date: 12/14/2022 09:34 Ordering Phys: Heron Nowak DO Technologist: AYO Diamond Exam Location: [facility] Indications: CHEST PAIN STRESS TEST [facility] IMAGE PROTOCOL Rest/Stress 1 Lexiscan Day Radiopharmaceutical Dose (mCi) Administration Site Administered by Rest: Tc-99m 10.8 IV AYO Nguyen Sestamibi Stress:Tc-99m 32.5 IV AYO Nguyen Sestamibi Rest: 14-Dec-2022 60 Discovery 630 Stress: 14-Dec-2022 30 Discovery 630 0.4mg Lexiscan. Supine position only as patient was unable to lay prone. SPECT RESULTS Technical Quality: Excellent Raw Data Analysis: Normal Image Corrections: No attenuation or motion correction applied Summed Stress Score: 0 Summed Rest Score: 0 Summed Difference Score: 0 PERFUSION FINDINGS SPECT images demonstrate homogeneous tracer distribution throughout the myocardium. FUNCTIONAL RESULTS (calculated via Gated SPECT) Stress Image LV EF (%): 66 Stress EDV (mL):109 TID: 1.03 Stress ESV (mL):37 FUNCTIONAL FINDINGS: There is normal left ventricular systolic function. IMPRESSIONS 1. Normal myocardial perfusion imaging with no evidence of ischemia 2. LV systolic function is normal. Rangel Green MD (Electronically Signed) Final Date: 14 December 2022 12:39 S
[2022-12-14] MEDS: regadenoson 0.4 Mg/5 ml Syringe IVP (10:10)
[2022-12-14 10:42] VITALS: BP 155/84; PULSE 62
== END 2022-12-14 08:14 | disposition home or self-care (01) ==
LOC: CDL 08:14
PROVIDERS: PCP Student in an Organized Health Care Education/Training Program; Visit Provider Family Medicine
DX: R07.89 Other chest pain (principal)
CPT/HCPCS: 36415; 78452; 93017; 96374; A9500; J2785

== ENCOUNTER 2023-02-25 13:02 | Inpatient (IN) | payer MEDICARE, MEDICAID, SELFPAY ==
[2023-02-25] VITALS (10 sets, daily range): BP systolic 128–174; BP diastolic 71–97; PULSE 77–105; RESP 14–18; TEMP 36.8–37.7; O2SAT 96–100
--- NOTE | 2023-02-25 13:13 | CTR_ITS ---
PROCEDURE INFORMATION: Exam: CT Head Without Contrast Exam date and time: 02/25/2023 2:04 PM Age: 67 years old Clinical indication: Altered mental status/memory loss; Additional info: AMS TECHNIQUE: Imaging protocol: Computed tomography of the head without contrast. Radiation optimization: All CT scans at this facility use at least one of these dose optimization techniques: automated exposure control; mA and/or kV adjustment per patient size (includes targeted exams where dose is matched to clinical indication); or iterative reconstruction. REPORTING DATA: Count of CT and Cardiac NM exams in prior 12 months: This patient has received 5 known CTs and 0 known cardiac nuclear medicine studies in the 12 months prior to the current study. COMPARISON: CT head wo con* [id number] 06/09/2022 7:21 PM RADIATION DOSE METRICS: Total DLP (mGy-cm): 1131.45 FINDINGS: Brain: There is diffuse cerebral atrophy and chronic microvascular white matter disease. There is a 1.6 x 1.5 cm focus of encephalomalacia in the superior right occipital lobe, stable since 06/09/2022. There is no significant mass effect or midline shift. There is no acute intracranial hemorrhage. Cerebral ventricles: There is mild ex vacuo dilation of the lateral ventricles. The basal cisterns are unremarkable. Paranasal sinuses: The paranasal sinuses are clear. Mastoid air cells: The mastoid air cells are clear. Bones/joints: The calvarium is intact. Soft tissues: The visible extracranial soft tissues are unremarkable. CT/CT head wo con* [id number] IMPRESSION: 1. No acute intracranial abnormality. 2. 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
--- NOTE | 2023-02-25 13:13 | XRR_ITS ---
PROCEDURE INFORMATION: Exam: XR Chest Exam date and time: 02/25/2023 1:18 PM Age: 67 years old Clinical indication: Dyspnea and shortness of breath; Additional info: AMS, cp, sepsis? TECHNIQUE: Imaging protocol: Radiologic exam of the chest. Views: 1 view. COMPARISON: CR XR chest 1V portable [id number] 11/09/2022 9:12 AM FINDINGS: Lungs: There is no consolidation. Pleural spaces: There is no pleural effusion or pneumothorax. Heart/Mediastinum: Cardiomediastinal contours are unremarkable. Bones/joints: Bones are unremarkable. XR/XR chest 1V portable [id number] IMPRESSION: No acute findings.
--- NOTE | 2023-02-25 13:15 | ECG_ITS ---
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1955 Requested By: Rosanna Perez Order Number: [id number] Reading MD: Abhilash Talley Measurements Intervals [place] Rate: 91 P: 23 WV: 148 QRS: 29 QRSD: 91 T: 66 QT: 325 QTc: 401 Interpretive Statements SINUS RHYTHM WITH OCCASIONAL SUPRAVENTRICULAR PREMATURE COMPLEXES Compared to ECG 11/09/2022 11:05:24 Ectopic atrial rhythm no longer present Myocardial infarct finding no longer present Electronically Signed On 02-25-2023 15:54:33 CDT by Abhilash Talley [id number]
--- NOTE | 2023-02-25 13:19 | W.ED.WEAKNES ---
HPI - Weakness General: Chief complaint: Weakness Stated complaint: LETHARGY Time Seen by Provider: 02/25/23 13:03 History of Present Illness: Patient is a 67-year-old man that presents to the emergency department with reports of altered mentation, chest pain, shortness of breath, worsening edema in bilateral lower extremities and a diabetic foot ulcer on the right foot. Patient arrives on 3 L nasal cannula and is oxygenating at 100%. He has a temp of 99.8. No documented fever from facility. Patient has a history that includes heart failure, heart disease, high cholesterol, hypertension diabetes. He has been receiving care at his facility for diabetic foot wound. This may be worsening as EMS reports new tunneling . Review of Systems Narrative: Unable to answer review of system questions due to altered mentation. He is unable to answer orientation questions. Only states I do not know Report is he has chest pain shortness of breath, altered mentation, fevers, worsening edema in extremities PFS ED PFSH: Medical History Hypertension Type 2 diabetes mellitus with hyperglycemia, with long-term current use of insulin Physical Exam Const: COMMON NORMALS: no acute distress and alert (Alert to verbal.) GENERAL APPEARANCE: cooperative ORIENTATION/CONSCIOUSNESS: Yes awake, Yes oriented to person, Yes oriented to place and Yes oriented to time HENMT: COMMON NORMALS: normocephalic and atraumatic HEAD & SCALP: normocephalic and atraumatic FACE & SINUS: normal facial exam MOUTH: Normal oral and palatal mucosa present THROAT: posterior oropharynx normal Eye: COMMON NORMALS: Equal, round and reactive pupils present, EOMs intact bilaterally, conjunctivae normal and no scleral icterus GENERAL EYE: appearance normal, both eyes and all related structures ALIGNMENT: Yes alignment normal PERIORBITAL: periorbital findings normal CONJUNCTIVA: Yes conjunctivae normal PUPIL: Yes Equal, round and reactive pupils present Neck/C-Spine: COMMON NORMALS: full ROM GENERAL: Yes normal visual inspection Lymph: LYMPHATIC: no lymphadenopathy noted Chest: COMMONS NORMALS: normal inspection of the chest Breast/axilla inspection: Yes no chest deformity, asymmetry, normal contours, no nodules, masses, tenderness Resp: COMMON NORMALS: normal respiratory effort, No retractions, No use of accessory muscles and clear to auscultation bilaterally EFFORT & INSPECTION: Yes symmetric chest movement AUSCULTATION: clear to auscultation bilaterally Cardio: COMMON NORMALS: regular rate, regular rhythm and Peripheral pulses 2+ throughout RATE: regular rate RHYTHM: regular rhythm HEART SOUNDS: Murmur heart sound present diastolic Location: left sternal border and right sternal border Characteristics: blowing Timing: holo PERIPHERAL PULSES: Peripheral pulses 2+ throughout OTHER: Edema bilateral lower EXTR GI: COMMON NORMALS: Normal to inspection, nondistended, normoactive bowel sounds present, Soft to palpation, non-tender and No hepatosplenomegaly present INSPECTION: Yes normal to inspection AUSCULTATION: Yes Hypoactive bowel sounds present PALPATION: Yes Soft to palpation and Yes No hepatosplenomegaly present RECTAL EXAM: Yes deferred Extremity: COMMON NORMALS: normal to inspection GENERAL: Yes normal exam except as noted Neuro: SENSORIUM/ORIENTATION: Yes alert (Alert to verbal.), Yes oriented to person, Yes oriented to place and Yes oriented to time CRANIAL NERVES: Yes CN normal except as noted Psych: COMMON NORMALS: mental status grossly normal, Normal thought process present, cooperative, activity/motor behavior normal, denies homicidal ideation and denies suicidal ideation THOUGHT PROCESS: Normal thought process present Skin: COMMON NORMALS: no rashes or lesions noted, no wounds and turgor normal GENERAL SKIN EXAM: no rashes or lesions noted and turgor normal Course Vital Signs: Vital signs: Vital Signs Temperature 98.3 F 02/25/23 17:45 Pulse Rate 82 02/25/23 17:30 Respiratory Rate 14 02/25/23 13:03 Blood Pressure 174/97 02/25/23 17:30 Pulse Oximetry 100 02/25/23 17:30 Oxygen Delivery Me thod Nasal Cannula 02/25/23 17:30 Oxygen Flow Rate 3 02/25/23 17:30 [facility] - Weakness Medical Decision Making Attending, Dr. Marsh, aware of patient on arrival to the ER. Patient was evaluated in the emergency department for altered mentation/fatigue/chest pain/lethargy. Arrived with a low-grade temp of 99.8. During her evaluation patient reported that he has recently had diarrhea. There is liquid stool in his depends. Patient has a differential diagnosis that includes sepsis, urosepsis versus pneumonia versus diabetic foot ulcer with sepsis. There is also a differential that includes AMI, neurologic event, anemia, kidney disease, hypercapnia, hypoxia. Patient underwent the following: Chest x-ray no acute findings CBC CMP troponin BNP and lactic acid. Patient does have anemia but no leukocytosis. There is an elevation in his troponin?60 but this is really unchanged from his baseline. The delta troponin was +0.64. He does show that he has worsening renal function. Does have edema in lower extremities with evidence of cellulitis. There is no antibiotic treatment currently. We also obtained a urinalysis which reveals a UTI for which she was started on Rocephin. EKGs were performed at 1328 and 1519. In all grossly unchanged from his baseline. His ventricular rate is 77 beats a minute with a QTc of 392. Sinus rhythm. No evidence of STEMI Hemoccult negative Blood cultures pending His hemoglobin is of most concern. It is 7.5. This is a 3 g drop in about 2 months. Type and screen was ordered. I did speak with Dr. Marsh, my attending on this case. Patient was started on Rocephin, given a 500 cc bolus. There was a lengthy wait to obtain a CT and CT read. Proceed with a CT of the abdomen and pelvis and then call the hospitalist. CT imaging complete and I did speak with the hospitalist who is agreeable for admission for JEAN-PIERRE, UTI, thrombocytopenia and anemia. Spoke with attending, admission orders placed Lab Data 02/25/23 13:14 02/25/23 13:14 Radiology Impressions Chest X-Ray 02/25/23 13:13 IMPRESSION: No acute findings. Head CT 02/25/23 13:13 IMPRESSION: 1. No acute intracranial abnormality. 2. 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 Abdomen/Pelvis CT 02/25/23 15:24 IMPRESSION: 1. New small left pleural effusion. 2. Dependent atelectasis in the lungs bilaterally. 3. Stable indeterminate focus in the liver compared with 06/09/2022. 4. The bladder is decompressed by a suprapubic catheter. 5. Interval development of moderate body wall edema. 6. Incidental/nonacute findings are listed in the report. Laboratory Results WBC 3.31 10^3/uL (3.29-11.43) 02/25/23 13:14 RBC 2.60 10^6/uL (3.85-5.65) L 02/25/23 13:14 Hgb 7.30 g/dL (11.27-16.99) L 02/25/23 13:14 Hct 23.6 % (37-53) L 02/25/23 13:14 MCV 90.8 fl (82-101) 02/25/23 13:14 MCH 28.1 pg (27-33) 02/25/23 13:14 MCHC 30.9 g/dL (30-55) 02/25/23 13:14 RDW 15.3 % (12.1-15.1) H 02/25/23 13:14 Plt Count 114 10^3/cmm (157-399) L 02/25/23 13:14 MPV 9.5 fL (7.4-10.4) 02/25/23 13:14 Neut % (Auto) 72.2 % 02/25/23 13:14 Lymph % (Auto) 13.6 % 02/25/23 13:14 [place] % (Auto) 13.3 % 02/25/23 13:14 Eos % (Auto) 0.0 % 02/25/23 13:14 Baso % (Auto) 0.6 % 02/25/23 13:14 Neut # (Auto) 2.39 10^3/uL (1.8-7.7) 02/25/23 13:14 Lymph # (Auto) 0.5 10^3/uL (0.8-4.8) L 02/25/23 13:14 [place] # (Auto) 0.4 10^3/uL (0.2-0.9) 02/25/23 13:14 Eos # (Auto) 0.0 10^3/uL (0.0-0.8) 02/25/23 13:14 Baso # (Auto) 0.0 10^3/uL (0.0-0.1) 02/25/23 13:14 Nucleated RBC % (auto) 0 % 02/25/23 13:14 Nucleated RBCs # 0.0 /100WBC 02/25/23 13:14 PT 14.60 SECONDS (12.1-14.9) 02/25/23 13:14 INR 1.10 (0.8-1.2) 02/25/23 13:14 Specimen Type Arterial 02/25/23 13:22 Sample Site Radial, left 02/25/23 13:22 ABG pH 7.44 (7.35-7.45) 02/25/23 13:22 ABG pCO2 40.4 mmHg (35-45) 02/25/23 13:22 ABG pO2 89.6 mmHg (80.0-100.0) 02/25/23 13:22 ABG HCO3 27.3 mmol/L (22-26) H 02/25/23 13:22 ABG Base Excess 2.9 mmol/L (-2.0-2.0) H 02/25/23 13:22 [place] Test Pos 02/25/23 13:22 Hematocrit 23.4 % (42-52) L 02/25/23 13:22 Hgb O2 Saturation 96.1 % (95-100) 02/25/23 13:22 Carboxyhemoglobin 1.4 %THgb (0.4-20.1) 02/25/23 13:22 Methemoglobin 0.6 % (0.4-1.5) 02/25/23 13:22 Total Hemoglobin 7.6 g/dL (14-18) L 02/25/23 13:22 O2 Delivery Device Nc 02/25/23 13:22 O2 Liters/Min 2.0 % 02/25/23 13:22 FiO2 28.0 % 02/25/23 13:22 Flight Service Agent ID Cak 02/25/23 13:22 Sodium 135 mmol/L (136-145) L 02/25/23 13:14 Potassium 4.0 mmol/L (3.5-5.1) 02/25/23 13:14 Chloride 102 mmol/L (98-107) 02/25/23 13:14 Carbon Dioxide 26 mmol/L (22-29) 02/25/23 13:14 Anion Gap 11.0 (5-19) 02/25/23 13:14 BUN 30 mg/dL (8-23) H 02/25/23 13:14 Creatinine 1.5 mg/dL (0.7-1.2) H 02/25/23 13:14 GFR Calculation 46.5 mL/min (90-130) L 02/25/23 13:14 Glucose 119 mg/dL (65-115) H 02/25/23 13:14 Calculated Osmolality 287 mOsm/kg (285-295) 02/25/23 13:14 Lactic Acid 0.6 mmol/L (0.5-2.2) 02/25/23 13:14 Calcium 7.8 mg/dL (8.5-10.5) L 02/25/23 13:14 Total Bilirubin 0.7 mg/dL (0.15-1.2) 02/25/23 13:14 AST 13 U/L (0-40) 02/25/23 13:14 ALT 16 U/L (0-41) 02/25/23 13:14 Alkaline Phosphatase 120 U/L (40-130) 02/25/23 13:14 Troponin T Baseline 63 ng/L (0-15) H 02/25/23 13:14 Troponin T 120 Minute 62.36 ng/L (0-15) H 02/25/23 15:15 Delta Troponin T -0.64 ABS# (0-10) L 02/25/23 15:15 NT-Pro-B Natriuret Pep 787 pg/mL (0-125) H 02/25/23 13:14 Total Protein 5.7 g/dL (6.6-8.7) L 02/25/23 13:14 Albumin 2.8 g/dL (3.5-5.2) L 02/25/23 13:14 Globulin 2.9 g/dL (1.3-4.6) 02/25/23 13:14 Urine Color Yellow (Yellow) 02/25/23 14:44 Urine Appearance Hazy (CLEAR) A 02/25/23 14:44 Urine pH 5 (5-7) 02/25/23 14:44 Ur Specific [place] 1.015 (1.005-1.030) 02/25/23 14:44 Urine Protein 1+ (Negative) H 02/25/23 14:44 Urine Glucose (UA) Norm (Normal) 02/25/23 14:44 Urine Ketones Negative (Negative) 02/25/23 14:44 Urine Blood 3+ (Negative) H 02/25/23 14:44 Urine Nitrate Negative (Negative) 02/25/23 14:44 Urine Bilirubin Neg (Negative) 02/25/23 14:44 Urine Urobilinogen Norm mg/dL (Negative) 02/25/23 14:44 Ur Leukocyte Esterase 2+ (Negative) H 02/25/23 14:44 Urine RBC 15-25 /hpf (0-2) H 02/25/23 14:44 Urine WBC 25-40 /hpf (0-5) H 02/25/23 14:44 Ur Squamous Epith Cells None /hpf (0-5) 02/25/23 14:44 Amorphous Sediment Not Reportable 02/25/23 14:44 Urine Bacteria 1+ /hpf (NONE) H 02/25/23 14:44 SARS-CoV-2 Ag (Rapid) negative (Negative) 02/25/23 15:11 Blood Type B Positive 02/25/23 15:25 Rho(D) Type Positive 02/25/23 15:25 Antibody Screen Negative 02/25/23 15:25 Discharge Plan Discharge Patient Disposition: Admitted As Inpatient Clinical Impression: Urinary tract infection, Type 2 diabetes mellitus with hyperglycemia, with long-term current use of insulin, Physical deconditioning, Anemia, Chronic suprapubic catheter, JEAN-PIERRE (acute kidney injury), Elevated troponin level, Thrombocytopenia Condition: Stable Coding Level of Care Code ED Opinion Polls Survey Worker for Babita Berry
[2023-02-25 13:33] LABS: ABG PCO2 40.4 mmHg (35-45); ABG PH Result 7.44 (7.35-7.45); Arterial Blood Gas Hematocrit 23.4 % (42-52); Base Excess ABG 2.9 mmol/L (-2.0-2.0); Blood Gas Allen Test Pos; Blood Gas Operator Identificat CAK; Blood Gas Sample Site Radial, left; Blood Gas Sample Type Arterial; Carboxyhemoglobin 1.4 %THgb (0.4-20.1); HCO3 ABG 27.3 mmol/L (22-26); HGB O2 Sat 96.1 % (95-100); Methemoglobin 0.6 % (0.4-1.5); Oxygen Device NC; PO2 ABG 89.6 mmHg (80.0-100.0); Total Hemoglobin 7.6 g/dL (14-18)
[2023-02-25 13:44] LABS: Basophils % 0.6 %; Hematocrit 23.6 % (37-53); Lymphocytes # 0.5 10^3/uL (0.8-4.8); Lymphocytes % 13.6 %; Mean Corpuscular HGB Conc 30.9 g/dL (30-55); Mean Corpuscular Hemoglobin 28.1 pg (27-33); Mean Corpuscular Volume 90.8 fl (82-101); Mean Platelet Volume 9.5 fL (7.4-10.4); Monocytes # 0.4 10^3/uL (0.2-0.9); Monocytes % 13.3 %; Neutrophils # 2.39 10^3/uL (1.8-7.7); Neutrophils % 72.2 %; Nucleated Red Blood Cells % 0 %; Platelet Count 114 10^3/cmm (157-399); Red Cell Distribution Width 15.3 % (12.1-15.1); White Blood Count 3.31 10^3/uL (3.29-11.43)
[2023-02-25 14:05] LABS: Lactic Sepsis W/Reflex 0.6 mmol/L (0.5-2.2)
[2023-02-25 14:06] LABS: Troponin(5th) Baseline 63 ng/L (0-15)
[2023-02-25] MEDS: sodium chloride 0.9% 500 ML IV (14:13)
[2023-02-25 14:18] LABS: Alanine Aminotransferase 16 U/L (0-41); Albumin Level 2.8 g/dL (3.5-5.2); Alkaline Phosphatase 120 U/L (40-130); Aspartate Amino Transferase 13 U/L (0-40); Blood Urea Nitrogen 30 mg/dL (8-23); Calcium 7.8 mg/dL (8.5-10.5); Carbon Dioxide 26 mmol/L (22-29); Chloride 102 mmol/L (98-107); Globulin 2.9 g/dL (1.3-4.6); Glomerular Filtration Rate 46.5 mL/min (90-130); Glucose 119 mg/dL (65-115); NT Pro B Type Natriuretic Pept 787 pg/mL (0-125); Osmolality Calculated 287 mOsm/kg (285-295); Sodium 135 mmol/L (136-145); Total Bilirubin 0.7 mg/dL (0.15-1.2); Total Protein 5.7 g/dL (6.6-8.7)
[2023-02-25 14:34] LABS: Slide Review Slide Review Perform
[2023-02-25 15:07] LABS: Add Urine Microscopic? YES; Bilirubin Urine Neg (Negative); Blood Urine 3+ (Negative); Glucose Urine UA Norm (Normal); Ketones Urine Negative (Negative); Leukocyte Esterase Urine 2+ (Negative); Nitrate Urine Negative (Negative); Protein Urine 1+ (Negative); Specific Gravity, Urine 1.015 (1.005-1.030); Urine Appearance Hazy (CLEAR); Urine Color Yellow (Yellow); Urobilinogen Urine Norm (Negative); pH Urine 5 (5-7)
[2023-02-25 15:08] LABS: Add Urine Culture? Yes; Bacteria Urine 1+ /hpf; RBC Urine 15-25 /hpf (0-2); WBC Urine 25-40 /hpf (0-5)
--- NOTE | 2023-02-25 15:15 | ECG_ITS ---
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1955 Requested By: Rosanna Perez Order Number: [id number] Reading MD: Abhilash Talley Measurements Intervals Biddle Rate: 77 P: 47 SD: 175 QRS: 33 QRSD: 89 T: 63 QT: 360 QTc: 408 Interpretive Statements SINUS RHYTHM WITH OCCASIONAL SUPRAVENTRICULAR PREMATURE COMPLEXES POSSIBLE RIGHT VENTRICULAR CONDUCTION DELAY [RSR (QR) IN V1/V2] Compared to ECG 02/25/2023 13:28:30 No significant changes Electronically Signed On 02-25-2023 15:58:26 CDT by Abhilash Talley [id number]
--- NOTE | 2023-02-25 15:24 | CTR_ITS ---
PROCEDURE INFORMATION: Exam: CT Abdomen And Pelvis With Contrast Exam date and time: 02/25/2023 4:47 PM Age: 67 years old Clinical indication: Other: Anemia; Patient HX: AMS TECHNIQUE: Imaging protocol: Computed tomography of the abdomen and pelvis with contrast. Sagittal and coronal reformatted images were created and reviewed. Radiation optimization: All CT scans at this facility use at least one of these dose optimization techniques: automated exposure control; mA and/or kV adjustment per patient size (includes targeted exams where dose is matched to clinical indication); or iterative reconstruction. Contrast material: OMNI 350; Contrast volume: 100 ml; Contrast route: INTRAVENOUS (IV); REPORTING DATA: Count of CT and Cardiac NM exams in prior 12 months: This patient has received 5 known CTs and 0 known cardiac nuclear medicine studies in the 12 months prior to the current study. COMPARISON: 1. CT chest abdpel w/*[id number] 10/26/2022 7:[address] abdomen pelvis w con* [id number] 06/09/2022 4:50 PM RADIATION DOSE METRICS: Total DLP (mGy-cm): 1313.78 FINDINGS: Tubes, catheters and devices: The bladder is decompressed by a suprapubic catheter. Nuclear medicine imaging with tagged red blood cell scan may be obtained for further evaluation as clinically indicated. Lungs: Dependent atelectasis in the lungs bilaterally. Pleural spaces: New small left pleural effusion. Heart: Visualized heart is normal in size. Stable calcification of the aortic valve and mitral valve annulus. Coronary arteries: Stable mild atherosclerotic calcification in the visualized coronary arteries. Liver: Indeterminate hypodense focus in the liver measuring 1.3 cm (series 3, image 17). Findings are stable compared with 06/09/2022 Gallbladder and bile ducts: Stable findings consistent with a previous cholecystectomy. No biliary ductal dilatation. Pancreas: The pancreas is unremarkable. No pancreatic ductal dilatation. Spleen: The spleen is unremarkable. Adrenal glands: The right adrenal gland is unremarkable. Stable nodularity of the left adrenal gland. Kidneys and ureters: The right kidney is unremarkable. Simple cyst in the left kidney is stable in size measuring 1.0 cm. The right and left ureters are unremarkable. Stomach and bowel: No acute abnormality in the small bowel. No acute abnormality in the colon. No acute abnormality in the stomach. Appendix: Appendix not definitely visualized. No inflammatory changes in the pericecal region however. Intraperitoneal space: No free intraperitoneal air. No ascites. No loculated fluid collections to suggest an abscess. Vasculature: Stable mild atherosclerotic calcifications in the visualized arteries. No evidence for aortic aneurysm or aortic dissection. Hepatic veins, portal veins, splenic vein, and SMV are patent. No extravasation of contrast from the abdominopelvic vessels. Lymph nodes: No lymphadenopathy. Urinary bladder: Unremarkable as visualized. Reproductive: Unremarkable as visualized. Bones/joints: Degenerative changes in the spine and hips. Moderate spinal canal stenosis at L2-L3, L3-L4, and L4-L5. Multilevel foraminal stenosis of varying severity in the visualized spine. Soft tissues: Interval development of moderate body wall edema. CT/CT abdomen pelvis w con* [id number] IMPRESSION: 1. New small left pleural effusion. 2. Dependent atelectasis in the lungs bilaterally. 3. Stable indeterminate focus in the liver compared with 06/09/2022. 4. The bladder is decompressed by a suprapubic catheter. 5. Interval development of moderate body wall edema. 6. Incidental/nonacute findings are listed in the report.
[2023-02-25 15:40] LABS: Troponin 5 2HR 62.36 ng/L (0-15)
[2023-02-25 15:41] LABS: Troponin 5 2HR Delta -0.64 ABS# (0-10)
[2023-02-25] MEDS: cefTRIAXone 2,000 MG in sodium chloride 0.9% (plus) 50 ML 100 MG IV (15:56)
[2023-02-25 16:01] LABS: SARS Covid-2 Antigen negative (Negative)
[2023-02-25] MEDS: iohexol 350 mg/mL 500 mL Btl (per mL) IV (16:50)
[2023-02-25 18:26] LABS: Ferritin 575 ng/mL (30-400); Iron 16 ug/dL (59-158); Lactate Dehydrogenase 153 U/L (135-225); Percent Saturation 7.9 % (20-50); Total Iron Binding Capacity 201 mcg/dl; Unsaturated Iron Binding 185 ug/dL (112-347)
--- NOTE | 2023-02-25 18:33 | P.HP_ITS ---
Providers/Chief Complaint Admitting Physician: Manish Ramon Primary Care Provider: Wilman Stephen Chief Complaint: LETHARGY History of Present Illness Gadiel Hoskins is a 67 year old gentleman brought in for assessment from skilled nursing due to AMS. Reported AMS initially in ER, currently he is more alert, able to provide history. States overall has not been feeling the greatest last few days, but no specific symptoms. Suspicion of UTI in ER, he does have chronic urinary catheter. He has been having diarrhea which she states started over the last few days. In ER also noted new worsened anemia, thrombocytopenia, he has not had any outward bleeding. He has had dyspnea on exertion, orthopnea, lower extremity edema. He has been having some mild cough productive of phlegm. Review of Systems Const: Denies: fever(s), chills, body aches or malaise ENMT: Denies: throat pain Card: Reports: edema; Denies: chest pain, pre-syncope or dyspnea on exertion Resp: Denies: dyspnea, productive cough, change in phlegm color or hemoptysis GI: Reports: diarrhea; Denies: abdominal pain, nausea, vomiting, constipation, hematochezia or melena : Denies: flank pain, difficulty urinating, urinary frequency or hematuria Musc: Denies: back pain, joint swelling or joint redness Skin/Breast: Denies: rash or new lesions Neuro: Reports: confusion; Denies: headache(s), numbness in extremities, weakness in extremities, dizziness or seizure-like activity Medications/Allergies Home Medications Medication Instructions Recorded Confirmed Last Taken Type aripiprazole 10 mg tablet 10 mg PO DAILY 06/09/22 02/25/23 02/25/23 History aspirin 81 mg tablet,delayed 81 mg PO DAILY 06/09/22 02/25/23 02/25/23 History release atorvastatin 40 mg tablet 40 mg PO QPM 06/09/22 02/25/23 02/25/23 History donepezil 10 mg tablet 10 mg PO BEDTIME 06/09/22 02/25/23 02/24/23 History famotidine 20 mg tablet 20 mg PO BID 06/09/22 02/25/23 02/25/23 History insulin aspart U-100 100 unit/mL See Rx Instructions .Route .COMPLEX 06/09/22 02/25/23 02/25/23 History (3 mL) subcutaneous pen (Novolog FlexPen U-100 Insulin aspart) insulin glargine 100 unit/mL (3 35 unit SUBCUT BID 06/09/22 02/25/23 02/25/23 History mL) subcutaneous pen (Lantus Solostar U-100 Insulin) linagliptin 5 mg tablet (Tradjenta) 5 mg PO DAILY 06/09/22 02/25/23 02/25/23 History mirtazapine 15 mg tablet 15 mg PO BEDTIME 06/09/22 02/25/23 02/24/23 History mupirocin 2 % topical ointment 1 applic topical . DIRECTED 06/09/22 02/25/23 02/25/23 History pantoprazole 40 mg tablet,delayed 40 mg PO DAILY 06/09/22 02/25/23 02/25/23 History release quetiapine 100 mg tablet 100 mg PO BEDTIME 06/09/22 02/25/23 02/24/23 History tamsulosin 0.4 mg capsule 0.8 mg PO QPM 06/09/22 02/25/23 02/24/23 History acetaminophen 325 mg tablet 650 mg PO QID PRN Pain 11/09/22 02/25/23 Unknown History cholecalciferol (vitamin D3) 50 50 mcg PO DAILY 11/09/22 02/25/23 02/25/23 History mcg (2,000 unit) capsule (Vitamin D3) furosemide 40 mg tablet 40 mg PO DAILY 11/09/22 02/25/23 02/25/23 History isosorbide mononitrate 30 mg 30 mg PO DAILY #30 tabs 11/09/22 02/25/23 02/25/23 Rx tablet,extended release 24 hr magnesium hydroxide 400 mg/5 mL 30 ml PO BID PRN Constipation 11/09/22 02/25/23 Unknown History oral suspension (Milk of Magnesia) ondansetron HCl 4 mg tablet 4 mg PO Q6H 11/09/22 02/25/23 11/09/22 History oxycodone 5 mg tablet 5 mg PO Q4H PRN Pain 11/09/22 02/25/23 11/09/22 History promethazine 25 mg tablet 25 mg PO Q6H PRN nausea and 11/09/22 02/25/23 Unknown Rx vomiting #20 tabs aluminum-mag hydroxide-simethicone 30 ml PO QID PRN Indigestion 02/25/23 02/25/23 Unknown History 200 mg-200 mg-20 mg/5 mL oral susp bisacodyl 10 mg rectal suppository 10 mg ID DAILY PRN Constipation 02/25/23 02/25/23 Unknown History (Dulcolax (bisacodyl)) bisacodyl 5 mg tablet,delayed 20 mg PO DAILY PRN Constipation 02/25/23 02/25/23 Unknown History release (Dulcolax (bisacodyl)) dicyclomine 20 mg tablet 20 mg PO QID PRN Cramps 02/25/23 02/25/23 Unknown History duloxetine 20 mg capsule,delayed 20 mg PO BID 02/25/23 02/25/23 02/25/23 History release gabapentin 100 mg capsule 200 mg PO TID 02/25/23 02/25/23 02/25/23 History guaifenesin 100 mg/5 mL oral liquid 200 mg PO Q4H PRN Cough 02/25/23 02/25/23 Unknown History loperamide 2 mg capsule 4 mg PO Q4H PRN Diarrhea 02/25/23 02/25/23 Unknown History magnesium citrate 150 ml PO DAILY PRN Constipation 02/25/23 02/25/23 Unknown History melatonin 3 mg capsule 3 mg PO BEDTIME 02/25/23 02/25/23 Unknown History metoprolol tartrate 25 mg tablet 25 mg PO BID 02/25/23 02/25/23 02/25/23 History Allergies Allergy/AdvReac Type Severity Reaction Status Date / Time morphine Allergy Unknown Verified 02/25/23 13:47 PFSH Acute PFSH: Medical History Hypertension Type 2 diabetes mellitus with hyperglycemia, with long-term current use of insulin Social History (Updated 02/25/23 @ 19:44 by Manish Ramon MD) Smoking and tobacco status: former smoker Vitals/I&O/Wt Last Vital Signs Temp 98.3 F 02/25/23 17:45 Pulse 82 02/25/23 17:30 Resp 14 02/25/23 13:03 BP 174/97 02/25/23 17:30 Pulse Ox 100 02/25/23 17:30 O2 Del Method Nasal Cannula 02/25/23 17:30 O2 Flow Rate 3 02/25/23 17:30 02/25/23 02/25/23 02/25/23 06:59 14:59 22:59 Intake Total 500 / 500 Balance 500 / 500 Weight last 48 hrs Weight 149.685 kg Physical Exam Const: COMMON NORMALS: alert GENERAL APPEARANCE: cooperative ORIENTATION/CONSCIOUSNESS: Yes awake HENMT: COMMON NORMALS: oropharynx normal Neck/C-Spine: COMMON NORMALS: no JVD Resp: COMMON NORMALS: normal respiratory effort and clear to auscultation bilaterally AUSCULTATION: clear to auscultation bilaterally Cardio: COMMON NORMALS: no JVD, regular rhythm, S1 normal heart sound present, S2 normal heart sound present and No murmurs present (Cardio) RHYTHM: regular rhythm HEART SOUNDS: S1 normal heart sound present and S2 normal heart sound present GI: COMMON NORMALS: Normal to inspection, nondistended, normoactive bowel so unds present, Soft to palpation and non-tender PALPATION: Yes Soft to pal pation Extremity: COMMON NORMALS: no joint enlargement GENERAL: Yes edema Neuro: COMMON NORMALS: patient oriented x3 and moves all extremities SENSORIUM/ORIENTATION: Yes alert Skin: COMMON NORMALS: no rashes or lesions noted GENERAL SKIN EXAM: no rashes or lesions noted OTHER: Bilateral lower extremity stasis dermatitis, mild erythema of lower legs below the knees. Some dry cracking skin on the feet. About 3 cm in size plantar/lateral distal right foot ulceration with necrotic base. Data 02/25/23 19:01 02/25/23 13:14 Micro: Microbiology 02/25/23 13:50 Blood Culture - Preliminary Blood SPECIMEN COLLECTED 02/25/23 13:50 Blood Culture - Preliminary Blood SPECIMEN COLLECTED A&P Assessment and plan (1) Acute encephalopathy: This appears to have improved. Not entirely clear cause, but appears possibly toxic encephalopathy from his medication in the setting of JEAN-PIERRE. Additionally possibly acute metabolic encephalopathy in setting of UTI. Otherwise no history of cirrhosis. No hypercapnia on ABG. No significant electrolyte abnormality. Reviewed rapid COVID result. Reviewed head CT, noted prior CVA. No seizure- like activity. Chest x-ray unremarkable. For now we will decrease gabapentin dose to 100 mg, continue aripiprazole, duloxetine, mirtazapine decrease Seroquel dose to 50 mg. Additionally he is on oxycodone. Reassess symptoms.Reorient. Treat possible UTI. Check TSH. (2) Urinary tract infection: Possible UTI, although also does have chronic urinary catheter. Ceftriaxone. Follow-up urine culture. Reviewed CT, no obstructive uropathy. (3) Acute diastolic CHF (congestive heart failure): Has symptoms of CHF, suspect acute diastolic CHF, previously stress test this year with normal ejection fraction. We will treat at this time with Lasix 60 mg twice daily. Monitor MERLIN. Reassess renal function. Discussed with him additionally checking echocardiogram. Complete troponin EKG series. Denies chest pain or pressure. Noted moderate troponin elevation without peak. Possibly demand ischemia in the setting of JEAN-PIERRE. At risk of electro abnormality, reassess chemistry. Monitor on telemetry. (4) Anemia: Noted acute anemia, hemoglobin 7.9. Is on aspirin, otherwise not any blood thinners. Does have some hematuria. Denies bleeding otherwise. Hemoccult was negative in ER. We will check iron studies. Follow-up CBC. Continue PPI. Additionally was noted thrombocytopenia which is new. Will obtain peripheral smear, LDH, haptoglobin, reticulocyte panel. (5) Stasis dermatitis: BL LE (6) Goals of care, counseling/discussion: Discussing goals of care with him, he states he would want attempted CPR, in case could not make decisions for himself names his daughter Janet as surrogate decision-maker. (7) Thrombocytopenia: Additional work-up as above including peripheral smear requested. (8) JEAN-PIERRE (acute kidney injury): Noted JEAN-PIERRE, creatinine 1.5. Did receive fluid challenge, but overall does appear fluid overloaded. Suspect may be related to CHF, assess TTE. For now started on Lasix. He is at risk of worsening JEAN-PIERRE. Reassess chemistry. No obstructive uropathy noted on review of CT. (9) Chronic suprapubic catheter: Plan Prior CVA: Noted incidentally on CT head. Continue aspirin, statin. Monitor blood pressure. Will need follow-up with PCP for optimization of risk factors. Right foot wound: Wound care with wet-to-dry dressing. Discussed with ER physician, ER documentation reviewed. Attestations Medical Necessity Statement*: Place in observation for additional assessment management of acute encephal opathy, decompensated diastolic CHF, anemia, thrombocytopenia, UTI. Diagnoses Acute encephalopathy G93.40 Urinary tract infection N39.0 Acute diastolic CHF (congestive heart failure) I50.31 Anemia D64.9 Stasis dermatitis I87.2 Goals of care, counseling/discussion Z71.89 Thrombocytopenia D69.6 JEAN-PIERRE (acute kidney injury) N17.9 Chronic suprapubic catheter Z93.59
[2023-02-25 19:07] LABS: Hematocrit 26.6 % (37-53); Retic Production Index 1.26; Reticulocyte % 1.9 % (0.5-2.0)
--- NOTE | 2023-02-25 19:09 | ECG_ITS ---
[facility] Test Date: 2023-02-25 Pat Name: Gadiel Hoskins Department: Room: 250 Gender: Male [employer] Helper: : 1955 Requested By: Rosanna Perez Order Number: [id number] Natali MD: Rangel Green M.D. Measurements Intervals [place] Rate: 99 P: 54 GA: 166 QRS: 37 QRSD: 97 T: 58 QT: 313 QTc: 403 Interpretive Statements SINUS RHYTHM WITH SINUS ARRHYTHMIA Compared to ECG 02/25/2023 15:19:49 No significant changes Electronically Signed On 02-26-2023 9:30:41 CDT by Rangel Green M.D. [id number]
[2023-02-25 19:27] LABS: Troponin 5 6HR 67.73 ng/L (0-15)
[2023-02-25 19:28] LABS: Troponin 5 6HR Delta 4.73 ng/L (0-12)
[2023-02-25 19:37] LABS: Thyroid Stimulating Hormone 2.87 uIU/mL (0.27-4.20)
--- NOTE | 2023-02-25 19:45 | PC.NURSE ---
PATIENT REPORT ATTEMPTED AT 1909 AND 1927 TO [facility]. THE NURSE RECEIVING PATIENT UNABLE TO TAKE REPORT.
[2023-02-25 19:49] LABS: LAB Peripheral Smear Sent for Review
[2023-02-25] MEDS: gabapentin 100 mg Capsule PO (21:41)
[2023-02-25] MEDS: donepezil 5 MG Tablet 10 MG PO (21:41)
[2023-02-25] MEDS: mirtazapine 15 mg Tablet PO (21:41)
[2023-02-25] MEDS: ondansetron 4 MG Tablet PO (21:41)
[2023-02-25] MEDS: quetiapine 100 mg Tablet 50 MG PO (21:47)
[2023-02-25] MEDS: FUROsemide 10 mg/mL SDV 10mL 60 MG IVP (21:49)
[2023-02-25] MEDS: heparin 5,000 unit/mL INJ 1 mL 5000 UNIT SUBCUT (21:50)
[2023-02-25 22:40] LABS: Glucose Point of Care 137 mg/dL (70-110)
[2023-02-26] VITALS (9 sets, daily range): BP systolic 107–155; BP diastolic 67–110; PULSE 59–114; RESP 17–20; TEMP 36.4–37.2; O2SAT 92–100; BMI 49.1
--- NOTE | 2023-02-26 00:41 | PC.NURSE ---
wound care on the right foot performed as ordered.
[2023-02-26] MEDS: ondansetron 4 MG Tablet PO ×4 (03:32→20:22)
[2023-02-26 05:43] LABS: Anion Gap 11.9 (5-19); Blood Urea Nitrogen 28 mg/dL (8-23); Calcium 8.6 mg/dL (8.5-10.5); Carbon Dioxide 28 mmol/L (22-29); Chloride 99 mmol/L (98-107); Creatinine Clr Calc Pharmacy 74.4415; Glomerular Filtration Rate 54.9 mL/min (90-130); Glucose 186 mg/dL (65-115); Magnesium 1.8 mg/dL (1.7-2.3); Osmolality Calculated 290 mOsm/kg (285-295); Potassium 3.9 mmol/L (3.5-5.1); Sodium 135 mmol/L (136-145)
[2023-02-26 05:47] LABS: Basophils % 0.6 %; Hematocrit 25.7 % (37-53); Lymphocytes # 0.5 10^3/uL (0.8-4.8); Lymphocytes % 17.2 %; Mean Corpuscular HGB Conc 30.4 g/dL (30-55); Mean Corpuscular Volume 92.1 fl (82-101); Mean Platelet Volume 9.3 fL (7.4-10.4); Monocytes # 0.6 10^3/uL (0.2-0.9); Monocytes % 18.4 %; Neutrophils # 1.92 10^3/uL (1.8-7.7); Neutrophils % 62.2 %; Nucleated Red Blood Cells % 0 %; Platelet Count 116 10^3/cmm (157-399); Red Blood Count 2.79 10^6/uL (3.85-5.65); Red Cell Distribution Width 15.1 % (12.1-15.1); White Blood Count 3.09 10^3/uL (3.29-11.43)
--- NOTE | 2023-02-26 06:00 | USCV_ITS ---
Gadiel Hoskins Age: 67 Gender: M : 1955 Exam Date: 02/26/2023 06:38 Ordering Phys: Manish Ramon MD Technologist: Emanuel Mondragon [place] [facility] [place]ication: chf BP: 148 / 85 HR: 95 Rhythm: Sinus Technical Quality: Adequate MEASUREMENTS (Male / Female) Normal Values 2D ECHO LVOT Diameter 2.1 cm LV Ejection Fraction MOD 2C 62.8 % LV Ejection Fraction 2C AL 61.4 % LA Diameter 3.6 cm LA Width 3.2 cm LA Height 4.7 cm RA Width 4.0 cm RA Height 4.0 cm Aorta at Sinotubular Diameter 2.7 cm IVC Diameter 2.0 cm M-MODE Aortic Annulus Diameter 3.1 cm LA Ao Ratio MM 1.1 MV E Point Septal Separation 0.7 cm DOPPLER AV Peak Velocity 93.0 cm/s LVOT Peak Velocity 95.0 cm/s AV Area Cont Eq vti 4.8 cm squared AV Area Cont Eq pk 3.5 cm squared MV Peak Velocity 126.0 cm/s MV Area PHT 7.1 cm squared Mitral E to A Ratio 0.7 MV E' Velocity 30.0 cm/s Mitral E to MV E' Ratio 5.3 Mitral E to LV E' Lateral Ratio 4.5 Mitral E to LV E' Septal Ratio 6.6 Right Atrial Pressure 8.0 mmHg PV Peak Velocity 108.0 cm/s RV Acceleration Time 0.1 s RV Ejection Time 0.3 s RV AcT/ET 0.5 FINDINGS Left Ventricle Normal left ventricular size and systolic function, EF 65 %. Mild left ventricular hypertrophy. Right Ventricle Normal right ventricular size and systolic function. Right Atrium Normal right atrial size. Left Atrium Normal left atrial size. Mitral Valve Trace mitral valve regurgitation. Aortic Valve Structurally normal trileaflet aortic valve. Tricuspid Valve Trace tricuspid valve regurgitation. Pulmonic Valve No pulmonary valve regurgitation. Pericardium No pericardial effusion. Aorta Normal aorta. IVC Mildly dilated IVC. CONCLUSIONS Normal left ventricular size and systolic function, EF 65 %. Mild left ventricular hypertrophy. Abhilash Talley MD (Electronically Signed) Final Date: 26 February 2023 12:53 S
[2023-02-26 06:19] LABS: Slide Review Slide Review Perform
[2023-02-26 06:53] LABS: Glucose Point of Care 212 mg/dL (70-110)
[2023-02-26] MEDS: perflutren protein-a microsphr 0.22 mg/mL SDV 3 mL IV (07:12)
[2023-02-26] MEDS: metoprolol tartrate 25 mg Tablet PO ×2 (08:02→18:21)
[2023-02-26] MEDS: ARIPiprazole 10 mg Tablet PO (08:02)
[2023-02-26] MEDS: gabapentin 100 mg Capsule PO ×3 (08:02→20:20)
[2023-02-26] MEDS: insulin lispro 100 unit/1 mL SUBCUT ×4 (08:02→21:07)
[2023-02-26] MEDS: duloxetine 20 mg Capsule PO ×2 (08:02→18:22)
[2023-02-26] MEDS: isosorbide mononitrate ER 30 mg Tablet PO (08:03)
[2023-02-26] MEDS: aspirin 81 mg EC Tablet PO (08:03)
[2023-02-26] MEDS: pantoprazole DR 40 mg Tablet PO (08:03)
[2023-02-26] MEDS: heparin 5,000 unit/mL INJ 1 mL 5000 UNIT SUBCUT ×2 (08:03→20:21)
[2023-02-26] MEDS: FUROsemide 10 mg/mL SDV 10mL 60 MG IVP ×2 (08:14→21:13)
[2023-02-26] MEDS: oxyCODONE 5 mg IR Tab/Cap PO ×2 (08:14→14:23)
[2023-02-26] MEDS: insulin glargine 100 units/1 mL 25 UNIT SUBCUT ×2 (09:22→18:21)
[2023-02-26 11:02] LABS: Glucose Point of Care 319 mg/dL (70-110)
[2023-02-26] MEDS: cefTRIAXone 1,000 MG in sodium chloride 0.9% (plus) 50 ML 100 MG IV (15:56)
[2023-02-26 17:21] LABS: Glucose Point of Care 342 mg/dL (70-110)
[2023-02-26] MEDS: atorvastatin 40 mg Tablet PO (18:21)
[2023-02-26] MEDS: tamsulosin 0.4 mg Capsule 0.8 MG PO (18:21)
[2023-02-26] MEDS: quetiapine 100 mg Tablet 50 MG PO (20:20)
[2023-02-26] MEDS: donepezil 5 MG Tablet 10 MG PO (20:20)
[2023-02-26] MEDS: mirtazapine 15 mg Tablet PO (20:20)
[2023-02-26 20:50] LABS: Glucose Point of Care 374 mg/dL (70-110)
--- NOTE | 2023-02-26 20:50 | P.PN_ITS ---
Subjective Subjective: He states that today he is completely feeling better. Breathing easier. Vitals/I&O/Wt Last Vital Signs Temp 97.5 F L 02/26/23 19:50 Pulse 71 02/26/23 19:50 Resp 20 H 02/26/23 19:50 BP 128/76 02/26/23 19:50 Pulse Ox 100 02/26/23 19:50 O2 Del Method Nasal Cannula 02/26/23 03:48 O2 Flow Rate 3 02/26/23 08:00 02/26/23 02/26/23 02/26/23 06:59 14:59 22:59 Intake Total 860 / 1410 1200 / 1200 410 / 1610 Output Total 2600 / 4000 1000 / 1000 Balance -1740 / -2590 200 / 200 410 / 610 Weight last 48 hrs Weight 133.951 kg Weight 149.685 kg Physical Exam Const: COMMON NORMALS: patient oriented x3 and alert GENERAL APPEARANCE: cooperative ORIENTATION/CONSCIOUSNESS: Yes awake HENMT: COMMON NORMALS: oropharynx normal Neck/C-Spine: COMMON NORMALS: no JVD Resp: COMMON NORMALS: normal respiratory effort and clear to auscultation bilaterally AUSCULTATION: clear to auscultation bilaterally Cardio: COMMON NORMALS: no JVD, regular rhythm, S1 normal heart sound present, S2 normal heart sound present and No murmurs present (Cardio) RHYTHM: regular rhythm HEART SOUNDS: S1 normal heart sound present and S2 normal heart sound present GI: COMMON NORMALS: Normal to inspection, nondistended, normoactive bowel sounds present, Soft to palpation and non-tender PALPATION: Yes Soft to palpation Extremity: COMMON NORMALS: no joint enlargement GENERAL: Yes edema Neuro: COMMON NORMALS: patient oriented x3 and moves all extremities SENSORIUM/ORIENTATION: Yes alert Skin: COMMON NORMALS: no rashes or lesions noted GENERAL SKIN EXAM: no rashes or lesions noted OTHER: Bilateral lower extremity stasis dermatitis, mild erythema of lower legs below the knees. Some dry cracking skin on the feet. About 3 cm in size plantar/lateral distal right foot ulceration with necrotic base. Urinary Catheter Management: Suprapubic: Cath Placed During This Visit: yes Reason for Continuing Indwelling Catheter: Acute Urinary Retention or Obstruct ion Urinary Catheter Date of Insertion: 02/25/23 Urinary Catheter Time of Insertion: 22:51 Data 02/26/23 05:30 02/26/23 05:05 Micro: Microbiology 02/25/23 13:50 Blood Culture - Preliminary Blood NEGATIVE TO DATE 02/25/23 13:50 Blood Culture - Preliminary Blood NEGATIVE TO DATE 02/25/23 14:44 Urine Culture - Preliminary Urine,Clean Catch A&P Assessment and plan (1) Acute diastolic CHF (congestive heart failure): He is responding well to diuresis. Subjectively feeling better. Reviewed MERLIN, noted negative balance. Noted some improvement in lower extremity edema, but still persistent severe edema. Continue IV diuretics for decompensated diastolic CHF. Reviewed echocardiogram, noted normal EF. LVH. Continue to monitor volume status, at risk of LVOT in case of dehydration with treatment. Avoid overdiuresis. Has symptoms of CHF, suspect acute diastolic CHF, previously stress test this year with normal ejection fraction. We will treat at this time with Lasix 60 mg twice daily. Monitor MERLIN. Reassess renal function. Discussed with him additionally checking echocardiogram. Noted moderate troponin elevation without peak. Possibly demand ischemia in the setting of JEAN-PIERRE. At risk of electro abnormality, reviewed chemistry, reassess chemistry. Monitor on telemetry. Iron deficiency anemia. Supplement. (2) Acute encephalopathy: Resolved. Not entirely clear cause, but appears possibly toxic encephalopathy from his medication in the setting of JEAN-PIERRE. Additionally possibly acute metabolic encephalopathy in setting of UTI. Otherwise no history of cirrhosis. No hy percapnia on ABG. No significant electrolyte abnormality. Reviewed rapid COVID result. Reviewed head CT, noted prior CVA. No seizure-like activity. Chest x- ray unremarkable. Continue decreased gabapentin dose to 100 mg, continue aripiprazole, duloxetine, mirtazapine decrease Seroquel dose to 50 mg. Additionally he is on oxycodone. Reassess symptoms.Reorient. Treat possible UTI. Reviewed, noted normal TSH. (3) Urinary tract infection: Has a suprapubic catheter. Tube has been exchanged. Continue ceftriaxone. Reviewed urine culture. Pending. Follow-up. Possible UTI, although also does have chronic urinary catheter. Ceftriaxone. Follow-up urine culture. Reviewed CT, no obstructive uropathy. (4) Anemia: Hemoglobin 7.8. Noted steady. Reassess CBC. Platelets 116. Pending peripheral smear. Reviewed haptoglobin, LDH, nonsu ggestive hemolysis. Noted iron deficiency anemia. Follow-up Hemoccult. We will give iron supplementation. On presentation noted acute anemia, hemoglobin 7.9. Is on aspirin, otherwise not any blood thinners. Does have some hematuria. Denies bleeding otherwise. Hemoccult was negative in ER. We will check iron studies. Follow-up CBC. Continue PPI. Additionally was noted thrombocytopenia which is new. Will obtain peripheral smear, LDH, haptoglobin, reticulocyte panel. (5) Stasis dermatitis: BL LE (6) Goals of care, counseling/discussion: Discussing goals of care with him, he states he would want attempted CPR, in case could not make decisions for himself names his daughter Janet as surrogate decision-maker. (7) Thrombocytopenia: Additional work-up as above including peripheral smear requested. Studies available so far reviewed as above, no suggestion of hemolysis. (8) JEAN-PIERRE (acute kidney injury): Reviewed creatinine, BUN, noted improving JEAN-PIERRE. Discussed with him. Noted JEAN-PIERRE, creatinine 1.5. Did receive fluid challenge, but overall does appear fluid overloaded. Suspect may be related to CHF, Reviewed TTE. For now started on Lasix. He is at risk of worsening JEAN-PIERRE. Reassess chemistry. No obstructive uropathy noted on review of CT. (9) Chronic suprapubic catheter: Plan Prior CVA: Noted incidentally on CT head. Continue aspirin, statin. Monitor blood pressure. Will need follow-up with PCP for optimization of risk factors. Right foot wound: Wound care with wet-to-dry dressing. Discussed with case management. Attestations Medical Necessity Statement*: Continue admission for assessment management of decompensated CHF, UTI, acute anemia, improved encephalopathy. Diagnoses Acute diastolic CHF (congestive heart failure) I50.31 Acute encephalopathy G93.40 Urinary tract infection N39.0 Anemia D64.9 Stasis dermatitis I87.2 Goals of care, counseling/discussion Z71.89 Thrombocytopenia D69.6 JEAN-PIERRE (acute kidney injury) N17.9 Chronic suprapubic catheter Z93.59
[2023-02-26] MEDS: iron sucrose 200 MG in sodium chloride 0.9% (100 ml) 100 ML 220 MG IV (21:06)
[2023-02-26] MEDS: nystatin cream 30 gm 1 APPLIC TOPICAL (22:39)
[2023-02-27] VITALS (11 sets, daily range): BP systolic 109–145; BP diastolic 68–84; PULSE 60–72; RESP 16–19; TEMP 36–36.7; O2SAT 96–98
[2023-02-27] MEDS: ondansetron 4 MG Tablet PO ×3 (03:01→20:26)
[2023-02-27 05:35] LABS: Basophils % 0.3 %; Eosinophils # 0.1 10^3/uL (0.0-0.8); Eosinophils % 3.9 %; Hematocrit 23.3 % (37-53); Lymphocytes # 0.8 10^3/uL (0.8-4.8); Lymphocytes % 22.1 %; Mean Corpuscular Hemoglobin 27.5 pg (27-33); Mean Corpuscular Volume 91.4 fl (82-101); Mean Platelet Volume 9.7 fL (7.4-10.4); Monocytes # 0.8 10^3/uL (0.2-0.9); Monocytes % 20.7 %; Neutrophils % 52.4 %; Nucleated Red Blood Cells % 0 %; Platelet Count 107 10^3/cmm (157-399); Red Blood Count 2.55 10^6/uL (3.85-5.65); Red Cell Distribution Width 15.3 % (12.1-15.1); White Blood Count 3.62 10^3/uL (3.29-11.43)
[2023-02-27 05:55] LABS: Anion Gap 13.1 (5-19); Blood Urea Nitrogen 43 mg/dL (8-23); Calcium 8.5 mg/dL (8.5-10.5); Carbon Dioxide 28 mmol/L (22-29); Chloride 100 mmol/L (98-107); Glomerular Filtration Rate 43.2 mL/min (90-130); Glucose 142 mg/dL (65-115); Osmolality Calculated 297 mOsm/kg (285-295); Potassium 4.1 mmol/L (3.5-5.1); Sodium 137 mmol/L (136-145)
[2023-02-27] MEDS: duloxetine 20 mg Capsule PO ×2 (09:05→18:10)
[2023-02-27] MEDS: insulin glargine 100 units/1 mL 25 UNIT SUBCUT ×2 (09:05→18:09)
[2023-02-27] MEDS: pantoprazole DR 40 mg Tablet PO (09:06)
[2023-02-27] MEDS: ARIPiprazole 10 mg Tablet PO (09:06)
[2023-02-27] MEDS: isosorbide mononitrate ER 30 mg Tablet PO (09:06)
[2023-02-27] MEDS: metoprolol tartrate 25 mg Tablet PO ×2 (09:06→18:10)
[2023-02-27] MEDS: heparin 5,000 unit/mL INJ 1 mL 5000 UNIT SUBCUT ×2 (09:06→20:27)
[2023-02-27] MEDS: aspirin 81 mg EC Tablet PO (09:06)
[2023-02-27] MEDS: gabapentin 100 mg Capsule PO ×3 (09:06→20:26)
[2023-02-27 09:12] LABS: Glucose Point of Care 124 mg/dL (70-110)
[2023-02-27] MEDS: nystatin cream 30 gm 1 APPLIC TOPICAL ×2 (09:14→18:11)
[2023-02-27] MEDS: FUROsemide 10 mg/mL SDV 10mL 60 MG IVP ×2 (09:34→21:06)
[2023-02-27] MEDS: oxyCODONE 5 mg IR Tab/Cap PO (10:17)
[2023-02-27] MEDS: insulin lispro 100 unit/1 mL SUBCUT ×3 (11:24→21:29)
[2023-02-27 11:57] LABS: Glucose Point of Care 251 mg/dL (70-110)
--- NOTE | 2023-02-27 12:02 | P.PN_ITS ---
Subjective Subjective: This morning patient is stating that he is back to his baseline would like to return to his senior living by tomorrow Hemoglobin is at 7 FOBT pending Requested 1 unit PRBC Hemodynamically stable Currently he is on 2 L nasal cannula, patient stating that he uses oxygen on an intermittent as-needed basis Vitals/I&O/Wt Last Vital Signs Temp 97.4 F L 02/27/23 11:12 Pulse 66 02/27/23 11:12 Resp 17 02/27/23 11:12 BP 109/68 02/27/23 11:12 Pulse Ox 97 02/27/23 11:12 O2 Del Method Nasal Cannula 02/26/23 03:48 O2 Flow Rate 3 02/27/23 08:00 02/26/23 02/27/23 02/27/23 22:59 06:59 14:59 Intake Total 1070 / 2270 360 / 360 Output Total 500 / 1500 650 / 2150 Balance 570 / 770 -650 / 120 360 / 360 Weight last 48 hrs Weight 135.488 kg Weight 133.951 kg Weight 149.685 kg Physical Exam Narrative: Lower extremity edema Venous dermatitis Awake and alert GCS 15 Currently on 2 L Blood pressure stable Pleasant and cooperative Suprapubic catheter draining urine Morbidly obese Lower extremity weakness is chronic Urinary Catheter Management: Suprapubic: Cath Placed During This Visit: yes Reason for Continuing Indwelling Catheter: Chronic Indwelling Urinary Catheter on Admission Urinary Catheter Date of Insertion: 02/25/23 Urinary Catheter Time of Insertion: 22:51 Data 02/27/23 04:20 02/27/23 04:20 Micro: Microbiology 02/25/23 08:46 Occult Blood (FIT) - Final Stool - Stool Aspirate 02/25/23 14:44 Urine Culture - Final Urine,Clean Catch 02/25/23 13:50 Blood Culture - Preliminary Blood NEGATIVE TO DATE 02/25/23 13:50 Blood Culture - Preliminary Blood NEGATIVE TO DATE A&P Assessment and plan (1) Stasis dermatitis: (2) Acute diastolic CHF (congestive heart failure): (3) Acute encephalopathy: (4) Urinary tract infection: (5) Anemia: (6) Chronic suprapubic catheter: (7) Recurrent falls: (8) Physical deconditioning: (9) Type 2 diabetes mellitus with hyperglycemia, with long-term current use of insulin: Plan Acute diastolic CHF exacerbation Continue diuresis Underlying component of venous dermatitis Requested D-dimer if high will request further Dopplers Acute encephalopathy: Resolved Secondary to polypharmacy and UTI Suprapubic catheter exchanged Iron-deficiency anemia: Hemoglobin is low will give him 1 unit PRBC Thrombocytopenia no severe worsening JEAN-PIERRE: Cardiorenal: Improving Full code Cardiac history, plan Right foot diabetic wound, gets wound care dressing change once per week as per the patient wet-to-dry dressing Attestations Medical Necessity Statement*: Continue medical management Diagnoses Stasis dermatitis I87.2 Acute diastolic CHF (congestive heart failure) I50.31 Acute encephalopathy G93.40 Urinary tract infection N39.0 Anemia D64.9 Chronic suprapubic catheter Z93.59 Recurrent falls R29.6 Physical deconditioning R53.81 Type 2 diabetes mellitus with hyperglycemia, with long-term current use of in sulin E11.65; Z79.4
[2023-02-27 13:39] LABS: D Dimer 1.37 ug/mLFEU (0-0.59)
[2023-02-27] MEDS: cefTRIAXone 1,000 MG in sodium chloride 0.9% (plus) 50 ML 100 MG IV (14:36)
--- NOTE | 2023-02-27 15:27 | PC.NURSE ---
Patient's daughter called and stated she wanted me to tell her dad she loves him and that her phone number is [phone].
[2023-02-27 17:10] LABS: Glucose Point of Care 213 mg/dL (70-110)
[2023-02-27] MEDS: tamsulosin 0.4 mg Capsule 0.8 MG PO (18:10)
[2023-02-27] MEDS: atorvastatin 40 mg Tablet PO (18:10)
[2023-02-27] MEDS: quetiapine 100 mg Tablet 50 MG PO (20:26)
[2023-02-27] MEDS: donepezil 5 MG Tablet 10 MG PO (20:26)
[2023-02-27] MEDS: mirtazapine 15 mg Tablet PO (20:26)
[2023-02-27] MEDS: iron sucrose 200 MG in sodium chloride 0.9% (100 ml) 100 ML 220 MG IV (21:26)
[2023-02-27 21:54] LABS: Glucose Point of Care 196 mg/dL (70-110)
--- NOTE | 2023-02-28 | CTR_ITS ---
PROCEDURE INFORMATION: Exam: CTA Chest With Contrast Exam date and time: 03/01/2023 4:25 AM Age: 67 years old Clinical indication: Other: Hypoxia TECHNIQUE: Imaging protocol: Computed tomographic angiography of the chest with contrast. Exam focused on the arteries. 3D rendering (Not supervised by radiologist): MIP and/or 3D reconstructed images were created by the technologist. Radiation optimization: All CT scans at this facility use at least one of these dose optimization techniques: automated exposure control; mA and/or kV adjustment per patient size (includes targeted exams where dose is matched to clinical indication); or iterative reconstruction. Contrast material: OMNI 350; Contrast volume: 80 ml; Contrast route: INTRAVENOUS (IV); REPORTING DATA: Count of CT and Cardiac NM exams in prior 12 months: This patient has received 7 known CTs and 0 known cardiac nuclear medicine studies in the 12 months prior to the current study. COMPARISON: CT chest abdpel w/*[id number] 10/26/2022 7:12 PM RADIATION DOSE METRICS: Total DLP (mGy-cm): 615.92 FINDINGS: Pulmonary arteries: Normal. No pulmonary emboli. Aorta: Unremarkable. No aortic aneurysm. No aortic dissection. Lungs: There is mild dependent bilateral lower lobe airspace opacities most consistent with atelectasis. Scattered mosaic attenuation changes of the lung parenchyma with ground-glass opacities. Negative for central endobronchial obstruction. Negative for pulmonary mass. Negative for peripheral honeycombing. Negative for bronchiectasis. Pleural spaces: Unremarkable. No pneumothorax. No pleural effusion. Heart: Unremarkable. No cardiomegaly. No pericardial effusion. Lymph nodes: Unremarkable. No enlarged lymph nodes. Gallbladder and bile ducts: Cholecystectomy. Unremarkable biliary system. Bones/joints: Unremarkable. No acute fracture. Soft tissues: Unremarkable. CT/CT angio chest PE protcl [id number] IMPRESSION: 1. Negative for pulmonary embolism. 2. Nonspecific scattered ground-glass pulmonary opacities which are new from comparison. Diagnostic considerations could include pathology such a nonspecific inflammatory pneumonitis, atypical pulmonary edema distribution or atypical infection.
[2023-02-28] MEDS: ondansetron 4 MG Tablet PO ×4 (02:58→21:58)
[2023-02-28 03:33] VITALS: BP 130/78; PULSE 70; RESP 19; TEMP 36.6; O2SAT 98
[2023-02-28 05:31] LABS: Basophils % 0.5 %; Eosinophils # 0.1 10^3/uL (0.0-0.8); Eosinophils % 3.4 %; Hematocrit 25.4 % (37-53); Lymphocytes # 0.9 10^3/uL (0.8-4.8); Lymphocytes % 21.5 %; Mean Corpuscular HGB Conc 31.1 g/dL (30-55); Mean Corpuscular Hemoglobin 28.1 pg (27-33); Mean Corpuscular Volume 90.4 fl (82-101); Mean Platelet Volume 9.7 fL (7.4-10.4); Monocytes # 0.6 10^3/uL (0.2-0.9); Monocytes % 15.3 %; Neutrophils # 2.41 10^3/uL (1.8-7.7); Neutrophils % 58.3 %; Nucleated Red Blood Cells % 0 %; Platelet Count 115 10^3/cmm (157-399); Red Blood Count 2.81 10^6/uL (3.85-5.65); Red Cell Distribution Width 14.9 % (12.1-15.1); White Blood Count 4.13 10^3/uL (3.29-11.43)
[2023-02-28 05:51] LABS: Blood Urea Nitrogen 40 mg/dL (8-23); Calcium 8.5 mg/dL (8.5-10.5); Carbon Dioxide 31 mmol/L (22-29); Chloride 101 mmol/L (98-107); Glomerular Filtration Rate 46.5 mL/min (90-130); Glucose 75 mg/dL (65-115); Osmolality Calculated 294 mOsm/kg (285-295); Sodium 138 mmol/L (136-145)
[2023-02-28 05:55] LABS: Creatinine Clr Calc Pharmacy 60.7301
[2023-02-28 06:37] LABS: Glucose Point of Care 87 mg/dL (70-110)
[2023-02-28 06:59] VITALS: BP 114/70; PULSE 80; RESP 18; TEMP 36.4; O2SAT 90
--- NOTE | 2023-02-28 08:11 | USCV_ITS ---
Gato Gadiel Age: 67 Gender: M : 1955 Exam Date: 02/28/2023 09:35 Ordering Phys: Lesley Mitchell MD Technologist: Lázaro Barriga [place] [facility] [place]: bilat leg swelling PROCEDURES: Bilateral duplex Venous Insufficiency study of the Deep and Superficial systems was carried out according to normal protocol with the patient in supine positon for deep system and dependent position for the superficial system. FINDINGS: Normal 2-D Doppler and augmentation and compressibility throughout the lower extremity venous structures. Additional imaging through the proximal calf veins also reveals no thrombus. Limited evaluation of the greater saphenous vein is patent with no thrombus. Complex cystic mass with low level echos and no vascularity measuring 2.4 x 0.8 in the right popliteal fossa. CONCLUSIONS No DVT bilateral lower extremities. Dr. Tashia Ornelas DO (Electronically Signed) Final Date: 02 March 2023 07:35 S
[2023-02-28] MEDS: bisacodyl 5 mg Tablet 40 MG PO (10:05)
[2023-02-28] MEDS: ARIPiprazole 10 mg Tablet PO (10:06)
[2023-02-28] MEDS: isosorbide mononitrate ER 30 mg Tablet PO (10:06)
[2023-02-28] MEDS: duloxetine 20 mg Capsule PO ×2 (10:07→17:51)
[2023-02-28] MEDS: metoprolol tartrate 25 mg Tablet PO ×2 (10:07→17:35)
[2023-02-28] MEDS: potassium chloride ER 20 mEq Tablet PO (10:07)
[2023-02-28] MEDS: pantoprazole 40 mg SDV IVP ×2 (10:08→20:50)
[2023-02-28] MEDS: FUROsemide 10 mg/mL SDV 10mL 60 MG IVP ×2 (10:11→20:49)
[2023-02-28] MEDS: gabapentin 100 mg Capsule PO ×3 (10:13→21:58)
[2023-02-28] MEDS: nystatin cream 30 gm 1 APPLIC TOPICAL ×2 (10:14→17:35)
--- NOTE | 2023-02-28 10:40 | P.CONIM_ITS ---
Providers/Reason For Consult Consulting Physician/Specialty*: Dr. Allan Bray, DO/General surgery Reason for Consult*: Hemoccult positive anemia Attending Physician: Lesley Mitchell MD Primary Care Provider: Wilman Stephen History of Present Illness History of Present Illness Gadiel Hoskins is a 67 year old male who presented to the hospital reporting just not quite feeling well. He reports that he had diarrhea for the last few days. Denies any abdominal pain nausea or vomiting. He is found to have anemia and was found to be Hemoccult positive. He denies any fever or chills. General surgery was consulted for possible EGD and colonoscopy Review of Systems General: Reports: 10 or more systems reviewed and unremarkable except in HPI and below Medications/Allergies Home Medications Medication Instructions Recorded Confirmed Last Taken Type aripiprazole 10 mg tablet 10 mg PO DAILY 06/09/22 02/25/23 02/25/23 History aspirin 81 mg tablet,delayed 81 mg PO DAILY 06/09/22 02/25/23 02/25/23 History release atorvastatin 40 mg tablet 40 mg PO QPM 06/09/22 02/25/23 02/25/23 History donepezil 10 mg tablet 10 mg PO BEDTIME 06/09/22 02/25/23 02/24/23 History famotidine 20 mg tablet 20 mg PO BID 06/09/22 02/25/23 02/25/23 History insulin aspart U-100 100 unit/mL See Rx Instructions .Route .COMPLEX 06/09/22 02/25/23 02/25/23 History (3 mL) subcutaneous pen (Novolog FlexPen U-100 Insulin aspart) insulin glargine 100 unit/mL (3 35 unit SUBCUT BID 06/09/22 02/25/23 02/25/23 History mL) subcutaneous pen (Lantus Solostar U-100 Insulin) linagliptin 5 mg tablet (Tradjenta) 5 mg PO DAILY 06/09/22 02/25/23 02/25/23 History mirtazapine 15 mg tablet 15 mg PO BEDTIME 06/09/22 02/25/23 02/24/23 History mupirocin 2 % topical ointment 1 applic topical . DIRECTED 06/09/22 02/25/23 02/25/23 History pantoprazole 40 mg tablet,delayed 40 mg PO DAILY 06/09/22 02/25/23 02/25/23 History release quetiapine 100 mg tablet 100 mg PO BEDTIME 06/09/22 02/25/23 02/24/23 History tamsulosin 0.4 mg capsule 0.8 mg PO QPM 06/09/22 02/25/23 02/24/23 History acetaminophen 325 mg tablet 650 mg PO QID PRN Pain 11/09/22 02/25/23 Unknown History cholecalciferol (vitamin D3) 50 50 mcg PO DAILY 11/09/22 02/25/23 02/25/23 History mcg (2,000 unit) capsule (Vitamin D3) furosemide 40 mg tablet 40 mg PO DAILY 11/09/22 02/25/23 02/25/23 History isosorbide mononitrate 30 mg 30 mg PO DAILY #30 tabs 11/09/22 02/25/23 02/25/23 Rx tablet,extended release 24 hr magnesium hydroxide 400 mg/5 mL 30 ml PO BID PRN Constipation 11/09/22 02/25/23 Unknown History oral suspension (Milk of Magnesia) ondansetron HCl 4 mg tablet 4 mg PO Q6H 11/09/22 02/25/23 11/09/22 History oxycodone 5 mg tablet 5 mg PO Q4H PRN Pain 11/09/22 02/25/23 11/09/22 History promethazine 25 mg tablet 25 mg PO Q6H PRN nausea and 11/09/22 02/25/23 Unknown Rx vomiting #20 tabs aluminum-mag hydroxide-simethicone 30 ml PO QID PRN Indigestion 02/25/23 02/25/23 Unknown History 200 mg-200 mg-20 mg/5 mL oral susp bisacodyl 10 mg rectal suppository 10 mg MO DAILY PRN Constipation 02/25/23 02/25/23 Unknown History (Dulcolax (bisacodyl)) bisacodyl 5 mg tablet,delayed 20 mg PO DAILY PRN Constipation 02/25/23 02/25/23 Unknown History release (Dulcolax (bisacodyl)) dicyclomine 20 mg tablet 20 mg PO QID PRN Cramps 02/25/23 02/25/23 Unknown Histo ry duloxetine 20 mg capsule,delayed 20 mg PO BID 02/25/23 02/25/23 02/25/23 History release gabapentin 100 mg capsule 200 mg PO TID 02/25/23 02/25/23 02/25/23 History guaifenesin 100 mg/5 mL oral liquid 200 mg PO Q4H PRN Cough 02/25/23 02/25/23 Unknown History loperamide 2 mg capsule 4 mg PO Q4H PRN Diarrhea 02/25/23 02/25/23 Unknown History magnesium citrate 150 ml PO DAILY PRN Constipation 02/25/23 02/25/23 Unknown History melatonin 3 mg capsule 3 mg PO BEDTIME 02/25/23 02/25/23 Unknown History metoprolol tartrate 25 mg tablet 25 mg PO BID 02/25/23 02/25/23 02/25/23 History Allergies Allergy/AdvReac Type Severity Reaction Status Date / Time morphine Allergy Unknown Verified 02/25/23 13:47 Current Medications Generic Name Dose Route Start Last Admin Trade Name Freq PRN Reason Stop Dose Admin Aripiprazole 10 mg 02/26/23 09:00 03/01/23 08:23 Aripiprazole 10 Mg Tablet PO 10 mg DAILY LIZZ Administration Aspirin 81 mg 02/26/23 09:00 02/27/23 09:06 Aspirin 81 Mg Ec Tablet PO 81 mg DAILY LIZZ Administration Atorvastatin Calcium 40 mg 02/26/23 18:00 02/28/23 17:35 Atorvastatin 40 Mg Tablet PO 40 mg QPM LIZZ Administration Donepezil HCl 10 mg 02/25/23 21:15 02/28/23 21:58 Donepezil 5 Mg Tablet PO 10 mg BEDTIME LIZZ Administration Duloxetine HCl 20 mg 02/26/23 09:00 03/01/23 08:23 Duloxetine 20 Mg Capsule PO 20 mg BID LIZZ Administration Furosemide 60 mg 02/25/23 21:03 03/01/23 08:23 Furosemide 10 Mg/Ml Sdv 10ml IVP 60 mg Q12H LIZZ Administration Gabapentin 100 mg 02/25/23 21:03 03/01/23 08:23 Gabapentin 100 Mg Capsule PO 100 mg TID LIZZ Administration Heparin Sodium (Porcine) 5,000 unit 02/25/23 21:03 02/27/23 20:27 Heparin 5,000 Unit/Ml Inj 1 Ml SUBCUT 5,000 unit Q12H LIZZ Administration Insulin Glargine 25 unit 02/26/23 09:00 02/28/23 17:50 Insulin Glargine 100 Units/1 Ml SUBCUT 25 unit BID LIZZ Administration Insulin Human Lispro 0 unit 02/25/23 21:03 03/01/23 07:21 Insulin Lispro 100 Unit/1 Ml SUBCUT Not Given WM&BEDTIME LIZZ Protocol Isosorbide Mononitrate 30 mg 02/26/23 09:00 03/01/23 08:23 Isosorbide Mononitrate Er 30 Mg Tablet PO 30 mg DAILY LIZZ Administration Metoprolol Tartrate 25 mg 02/26/23 09:00 03/01/23 08:23 Metoprolol Tartrate 25 Mg Tablet PO 25 mg BID LIZZ Administration Mirtazapine 15 mg 02/25/23 21:03 02/28/23 21:58 Mirtazapine 15 Mg Tablet PO 15 mg BEDTIME LIZZ Administration Nystatin 1 applic 02/26/23 22:30 03/01/23 08:23 Nystatin Cream 30 Gm TOPICAL 1 applic BID LIZZ Administration Ondansetron HCl 4 mg 02/25/23 21:03 03/01/23 08:23 Ondansetron 4 Mg Tablet PO 4 mg Q6H LIZZ Administration Oxycodone HCl 5 mg 02/25/23 21:03 02/27/23 10:17 Oxycodone 5 Mg Ir Tab/Cap PO 5 mg Q4H PRN Administration Pain Pantoprazole Sodium 40 mg 02/28/23 08:15 03/01/23 08:22 Pantoprazole 40 Mg Sdv IVP 40 mg Q12H LIZZ Administration Potassium Chloride 20 meq 02/28/23 09:00 03/01/23 08:23 Potassium Chloride Er 20 Meq Tablet PO 20 meq DAILY LIZZ Administration Quetiapine Fumarate 50 mg 02/25/23 21:03 02/28/23 21:58 Quetiapine 100 Mg Tablet PO 50 mg BEDTIME LIZZ Administration Tamsulosin HCl 0.8 mg 02/26/23 18:00 02/28/23 17:54 Tamsulosin 0.4 Mg Capsule PO 0.8 mg QPM LIZZ Administration PFSH Acute PFSH: Medical History Hypertension Type 2 diabetes mellitus with hyperglycemia, with long-term current use of insulin Social History Smoking and tobacco status: former smoker Vitals/I&O/Wt Last Vital Signs Temp 97.8 F 03/01/23 07:03 Pulse 77 03/01/23 07:03 Resp 15 03/01/23 07:03 BP 123/80 03/01/23 07:03 Pulse Ox 98 03/01/23 07:03 O2 Del Method Nasal Cannula 03/01/23 07:03 O2 Flow Rate 3 02/28/23 20:00 02/28/23 03/01/23 03/01/23 22:59 06:59 14:59 Intake Total 240 / 1080 Output Total 950 / 950 975 / 1925 Balance -710 / 130 -975 / -845 Weight last 48 hrs Weight 285 lb 9 oz Weight 293 lb 11.2 oz Physical Exam Narrative: General : Patient is well developed , no acute distress, oriented x3 Head : Normal cephalic, a-traumatic. Ears : Pinnae and external canal are normal. Hearing is normal. Eyes : PERRLA, Sclera and injection are normal. No conjunctival discharge. Nose : Mucous membranes are without erythema. Throat : buccal mucosa is normal, gums are without significant recession or hypertrophy. Lungs : Equal chest rise bilaterally, no use of accessory muscles, trachea is midline. Cor : Rate and rhythm are normal. Abdomen : Soft, ND, NT, no g/r/m Extremities : No edema, no cyanosis or clubbing, dorsalis pedis pulses are present bilaterally, non-tender to palpation of calves. Upper extremities are normal bilaterally. Back : non-tender to palpation, no CVA tenderness. Neuro : CN II - XII intact, Upper and lower extremities have equal and full strength Urinary Catheter Management: Suprapubic: Cath Placed During This Visit: yes Reason for Continuing Indwelling Catheter: Chronic Indwelling Urinary Catheter on Admission Urinary Catheter Date of Insertion: 02/25/23 Urinary Catheter Time of Insertion: 22:51 Data 03/01/23 08:40 02/28/23 04:37 A&P Assessment and plan (1) Anemia: (2) GI bleed: Plan EGD Colonoscopy The risks and benefits of the procedure, including bleeding, infection, intestinal perforation requiring surgery, missed lesion were explained to the patient. The patient is understanding of the risks and wishes to proceed. Coding Level of Care Code 73497 Diagnoses Anemia D64.9 GI bleed K92.2
[2023-02-28] MEDS: peg /e-lyte soln 4,000 mL Btl 4000 ML PO (10:50)
--- NOTE | 2023-02-28 11:24 | PM.PN ---
Subjective Subjective: Patient was upset because he was n.p.o. however I have changed his diet to clear liquid FOBT positive Hemoglobin 7.[address] Bray planning for EGD and colonoscopy tomorrow Start GoLytely Give him Dulcolax I have asked for venous Doppler for high D-dimer Vitals/I&O/Wt Last Vital Signs Temp 97.5 F L 02/28/23 06:59 Pulse 80 02/28/23 06:59 Resp 18 02/28/23 06:59 BP 114/70 02/28/23 06:59 Pulse Ox 90 02/28/23 06:59 O2 Del Method Nasal Cannula 02/27/23 12:45 O2 Flow Rate 3 02/27/23 19:01 02/27/23 02/28/23 02/28/23 22:59 06:59 14:59 Intake Total 400 / 1350 480 / 480 Output Total 1800 / 1800 1200 / 3000 Balance -1400 / -450 -1200 / -1650 480 / 480 Weight last 48 hrs Weight 133.22 kg Weight 135.488 kg Physical Exam Narrative: Patient is awake and alert Laying supine in his bed No active complaint Lower extremity edema 3+ GCS 15 S1, S2 Currently on 2 L nasal cannula Abdomen distended however nontender Urinary Catheter Management: Suprapubic: Cath Placed During This Visit: yes Reason for Continuing Indwelling Catheter: Acute Urinary Retention or Obstruction Urinary Catheter Date of Insertion: 02/25/23 Urinary Catheter Time of Insertion: 22:51 Data 02/28/23 04:37 02/28/23 04:37 Micro: Microbiology 02/25/23 08:46 Occult Blood (FIT) - Final Stool - Stool Aspirate 02/25/23 14:44 Urine Culture - Final Urine,Clean Catch A&P Assessment and plan (1) Goals of care, counseling/discussion: (2) Stasis dermatitis: (3) Acute diastolic CHF (congestive heart failure): (4) Acute encephalopathy: (5) Urinary tract infection: (6) Anemia: (7) Chronic suprapubic catheter: (8) Spinal stenosis, lumbar region, with neurogenic claudication: (9) Recurrent falls: Plan Metabolic encephalopathy related to polypharmacy and UTI: Resolved Acute on chronic normocytic anemia Positive GI bleed Plan for EGD and colonoscopy tomorrow Dr. Bray notified Protonix 40 mg IV push every 12 hours Status post 1 unit PRBC Hemodynamically stable Discontinue iron supplements UTI: Continue anti- biotic High D-dimer: Currently on 2 L We will request venous Doppler JEAN-PIERRE related to cardiorenal syndrome: Anticipate improvement with better diuresis Thrombocytopenia: Stable Full code Clear liquid diet for today Right diabetic foot ulcer: Patient stating that he gets dressing change once in a week [facility] If he remains stable by tomorrow and hemoglobin is stable I might be able to discharge him after colonoscopy Attestations Medical Necessity Statement*: Possible discharge tomorrow Diagnoses Goals of care, counseling/discussion Z71.89 Stasis dermatitis I87.2 Acute diastolic CHF (congestive heart failure) I50.31 Acute encephalopathy G93.40 Urinary tract infection N39.0 Anemia D64.9 Chronic suprapubic catheter Z93.59 Spinal stenosis, lumbar region, with neurogenic claudication M48.062 Recurrent falls R29.6
[2023-02-28 11:25] LABS: Glucose Point of Care 198 mg/dL (70-110)
[2023-02-28 12:00] VITALS: BP 117/66; PULSE 75; RESP 17; TEMP 36.4; O2SAT 96
[2023-02-28 16:00] VITALS: BP 121/56; PULSE 82; RESP 18; TEMP 36.8; O2SAT 94
[2023-02-28] MEDS: magnesium citrate Btl 296 mL PO ×2 (16:48→20:15)
[2023-02-28 17:33] LABS: Glucose Point of Care 150 mg/dL (70-110)
[2023-02-28] MEDS: atorvastatin 40 mg Tablet PO (17:35)
[2023-02-28] MEDS: insulin glargine 100 units/1 mL 25 UNIT SUBCUT (17:50)
[2023-02-28] MEDS: tamsulosin 0.4 mg Capsule 0.8 MG PO (17:54)
[2023-02-28 20:00] VITALS: BP 142/82; PULSE 76; RESP 16; TEMP 36.6; O2SAT 92
[2023-02-28 20:52] LABS: Glucose Point of Care 215 mg/dL (70-110)
[2023-02-28] MEDS: quetiapine 100 mg Tablet 50 MG PO (21:58)
[2023-02-28] MEDS: mirtazapine 15 mg Tablet PO (21:58)
[2023-02-28] MEDS: donepezil 5 MG Tablet 10 MG PO (21:58)
[2023-02-28] MEDS: insulin lispro 100 unit/1 mL SUBCUT (21:59)
[2023-03-01] VITALS (10 sets, daily range): BP systolic 111–138; BP diastolic 59–85; PULSE 62–89; RESP 15–20; TEMP 36.1–37.2; O2SAT 92–100
[2023-03-01] MEDS: ondansetron 4 MG Tablet PO ×2 (03:02→08:23)
[2023-03-01] MEDS: iohexol 350 mg/mL 500 mL Btl (per mL) IV (04:37)
[2023-03-01 06:27] LABS: Glucose Point of Care 85 mg/dL (70-110)
[2023-03-01] MEDS: pantoprazole 40 mg SDV IVP (08:22)
[2023-03-01] MEDS: isosorbide mononitrate ER 30 mg Tablet PO (08:23)
[2023-03-01] MEDS: nystatin cream 30 gm 1 APPLIC TOPICAL (08:23)
[2023-03-01] MEDS: ARIPiprazole 10 mg Tablet PO (08:23)
[2023-03-01] MEDS: duloxetine 20 mg Capsule PO (08:23)
[2023-03-01] MEDS: metoprolol tartrate 25 mg Tablet PO (08:23)
[2023-03-01] MEDS: gabapentin 100 mg Capsule PO (08:23)
[2023-03-01] MEDS: potassium chloride ER 20 mEq Tablet PO (08:23)
[2023-03-01] MEDS: FUROsemide 10 mg/mL SDV 10mL 60 MG IVP (08:23)
[2023-03-01 08:46] LABS: Basophils % 0.5 %; Eosinophils # 0.1 10^3/uL (0.0-0.8); Hematocrit 24.5 % (37-53); Lymphocytes # 0.9 10^3/uL (0.8-4.8); Lymphocytes % 15.5 %; Mean Corpuscular HGB Conc 31.8 g/dL (30-55); Mean Corpuscular Hemoglobin 28.5 pg (27-33); Mean Corpuscular Volume 89.4 fl (82-101); Mean Platelet Volume 9.5 fL (7.4-10.4); Monocytes # 0.7 10^3/uL (0.2-0.9); Monocytes % 12.4 %; Neutrophils # 4.14 10^3/uL (1.8-7.7); Neutrophils % 69.1 %; Nucleated Red Blood Cells % 0 %; Platelet Count 129 10^3/cmm (157-399); Red Blood Count 2.74 10^6/uL (3.85-5.65); Red Cell Distribution Width 14.9 % (12.1-15.1); White Blood Count 5.99 10^3/uL (3.29-11.43)
--- NOTE | 2023-03-01 09:35 | PC.SOCIAL ---
Pg 2 IMM Explained to pt Pg 2 IMM. No questions voiced. Provided pt a copy. Initialed, dated, & timed a copy & placed in chart.
--- NOTE | 2023-03-01 10:42 | P.PN_ITS ---
Vitals/I&O/Wt Last Vital Signs Temp 97.8 F 03/01/23 07:03 Pulse 77 03/01/23 07:03 Resp 15 03/01/23 07:03 BP 123/80 03/01/23 07:03 Pulse Ox 98 03/01/23 07:03 O2 Del Method Nasal Cannula 03/01/23 07:03 O2 Flow Rate 3 02/28/23 20:00 02/28/23 03/01/23 03/01/23 22:59 06:59 14:59 Intake Total 240 / 1080 Output Total 950 / 950 975 / 1925 Balance -710 / 130 -975 / -845 Weight last 48 hrs Weight 285 lb 9 oz Weight 293 lb 11.2 oz Physical Exam Urinary Catheter Management: Suprapubic: Cath Placed During This Visit: yes Reason for Continuing Indwelling Catheter: Chronic Indwelling Urinary Catheter on Admission Urinary Catheter Date of Insertion: 02/25/23 Urinary Catheter Time of Insertion: 22:51 Data 03/01/23 08:40 02/28/23 04:37 A&P Assessment and plan (1) Anemia: (2) GI bleed: Plan EGD Colonoscopy The risks and benefits of the procedure, including bleeding, infection, intestinal perforation requiring surgery, missed lesion were explained to the patient. The patient is understanding of the risks and wishes to proceed. Attestations 2 Medical Necessity Statement*: Per primary Coding Level of Care Code Acute Code for Chg Fwd Diagnoses Anemia D64.9 GI bleed K92.2
--- NOTE | 2023-03-01 10:50 | ANES.PREANE2 ---
Pre-Anesthetic Assessment Height/Weight: Height 1.65 m Weight 129.529 kg Temp Pulse Resp BP Pulse Ox O2 Del Method O2 Flow Rate 97.0 F L 70 20 H 116/59 100 Nasal Cannula 3 03/01/23 10:48 03/01/23 10:48 03/01/23 10:48 03/01/23 10:48 03/01/23 10:48 03/01/23 10:48 03/01/23 10:48 Operation Date: 03/01/23 10:45 Proposed Procedures p EGD(Not Applicable) - Allan Bray DO s Colonoscopy(Not Applicable) - Allan Bray DO Familial anesthetic complications: None Was Beta Kena taken within 24 hours: Yes Was Clonidine taken within 24 hours: N/A Last intake: > 8hrs Social No alcohol and No tobacco Exam alert, oriented x 3, clear to auscultation bilaterally and regular rate & rhythm Airway Mallampati: Class III Dentition: chipped Comments: Comments: le[place]itt CV/HEM Anemia and Hypertension Chronic Renal Insufficiency GI Gastroesophageal Reflux Disease Metabolic Diabetes Mellitus and Morbid Obesity Anesthetic Plan ASA status: 4 Anesthesia: MAC Risk of > 500 ml blood loss (7ml/kg in children): No Medications/Allergies Home Medications Medication Instructions Recorded Confirmed Last Taken Type aripiprazole 10 mg tablet 10 mg PO DAILY 06/09/22 02/25/23 02/25/23 History aspirin 81 mg tablet,delayed 81 mg PO DAILY 06/09/22 02/25/23 02/25/23 History release atorvastatin 40 mg tablet 40 mg PO QPM 06/09/22 02/25/23 02/25/23 History donepezil 10 mg tablet 10 mg PO BEDTIME 06/09/22 02/25/23 02/24/23 History famotidine 20 mg tablet 20 mg PO BID 06/09/22 02/25/23 02/25/23 History insulin aspart U-100 100 unit/mL See Rx Instructions .Route .COMPLEX 06/09/22 02/25/23 02/25/23 History (3 mL) subcutaneous pen (Novolog FlexPen U-100 Insulin aspart) insulin glargine 100 unit/mL (3 35 unit SUBCUT BID 06/09/22 02/25/23 02/25/23 History mL) subcutaneous pen (Lantus Solostar U-100 Insulin) linagliptin 5 mg tablet (Tradjenta) 5 mg PO DAILY 06/09/22 02/25/23 02/25/23 History mirtazapine 15 mg tablet 15 mg PO BEDTIME 06/09/22 02/25/23 02/24/23 History mupirocin 2 % topical ointment 1 applic topical . DIRECTED 06/09/22 02/25/23 02/25/23 History pantoprazole 40 mg tablet,delayed 40 mg PO DAILY 06/09/22 02/25/23 02/25/23 History release quetiapine 100 mg tablet 100 mg PO BEDTIME 06/09/22 02/25/23 02/24/23 History tamsulosin 0.4 mg capsule 0.8 mg PO QPM 06/09/22 02/25/23 02/24/23 History acetaminophen 325 mg tablet 650 mg PO QID PRN Pain 11/09/22 02/25/23 Unknown History cholecalciferol (vitamin D3) 50 50 mcg PO DAILY 11/09/22 02/25/23 02/25/23 History mcg (2,000 unit) capsule (Vitamin D3) furosemide 40 mg tablet 40 mg PO DAILY 11/09/22 02/25/23 02/25/23 History isosorbide mononitrate 30 mg 30 mg PO DAILY #30 tabs 11/09/22 02/25/23 02/25/23 Rx tablet,extended release 24 hr magnesium hydroxide 400 mg/5 mL 30 ml PO BID PRN Constipation 11/09/22 02/25/23 Unknown History oral suspension (Milk of Magnesia) ondansetron HCl 4 mg tablet 4 mg PO Q6H 11/09/22 02/25/23 11/09/22 History oxycodone 5 mg tablet 5 mg PO Q4H PRN Pain 11/09/22 02/25/23 11/09/22 History promethazine 25 mg tablet 25 mg PO Q6H PRN nausea and 11/09/22 02/25/23 Unknown Rx vomiting #20 tabs aluminum-mag hydroxide-simethicone 30 ml PO QID PRN Indigestion 02/25/23 02/25/23 Unknown History 200 mg-200 mg-20 mg/5 mL oral susp bisacodyl 10 mg rectal suppository 10 mg IN DAILY PRN Constipation 02/25/23 02/25/23 Unknown History (Dulcolax (bisacodyl)) bisacodyl 5 mg tablet,delayed 20 mg PO DAILY PRN Constipation 02/25/23 02/25/23 Unknown History release (Dulcolax (bisacodyl)) dicyclomine 20 mg tablet 20 mg PO QID PRN Cramps 02/25/23 02/25/23 Unknown History duloxetine 20 mg capsule,delayed 20 mg PO BID 02/25/23 02/25/23 02/25/23 History release gabapentin 100 mg capsule 200 mg PO TID 02/25/23 02/25/23 02/25/23 History guaifenesin 100 mg/5 mL oral liquid 200 mg PO Q4H PRN Cough 02/25/23 02/25/23 Unknown History loperamide 2 mg capsule 4 mg PO Q4H PRN Diarrhea 02/25/23 02/25/23 Unknown History magnesium citrate 150 ml PO DAILY PRN Constipation 02/25/23 02/25/23 Unknown History melatonin 3 mg capsule 3 mg PO BEDTIME 02/25/23 02/25/23 Unknown History metoprolol tartrate 25 mg tablet 25 mg PO BID 02/25/23 02/25/23 02/25/23 History Allergies Allergy/AdvReac Type Severity Reaction Status Date / Time morphine Allergy Unknown Verified 02/25/23 13:47 Current Medications Generic Name Dose Route Start Last Admin Trade Name Freq PRN Reason Stop Dose Admin Aripiprazole 10 mg 02/26/23 09:00 03/01/23 08:23 Aripiprazole 10 Mg Tablet PO 10 mg DAILY LIZZ Administration Aspirin 81 mg 02/26/23 09:00 02/27/23 09:06 Aspirin 81 Mg Ec Tablet PO 81 mg DAILY LIZZ Administration Atorvastatin Calcium 40 mg 02/26/23 18:00 02/28/23 17:35 Atorvastatin 40 Mg Tablet PO 40 mg QPM LIZZ Administration Donepezil HCl 10 mg 02/25/23 21:15 02/28/23 21:58 Donepezil 5 Mg Tablet PO 10 mg BEDTIME LIZZ Administration Duloxetine HCl 20 mg 02/26/23 09:00 03/01/23 08:23 Duloxetine 20 Mg Capsule PO 20 mg BID LIZZ Administration Furosemide 60 mg 02/25/23 21:03 03/01/23 08:23 Furosemide 10 Mg/Ml Sdv 10ml IVP 60 mg Q12H LIZZ Administration Gabapentin 100 mg 02/25/23 21:03 03/01/23 08:23 Gabapentin 100 Mg Capsule PO 100 mg TID LIZZ Administration Heparin Sodium (Porcine) 5,000 unit 02/25/23 21:03 02/27/23 20:27 Heparin 5,000 Unit/Ml Inj 1 Ml SUBCUT 5,000 unit Q12H LIZZ Administration Insulin Glargine 25 unit 02/26/23 09:00 02/28/23 17:50 Insulin Glargine 100 Units/1 Ml SUBCUT 25 unit BID LIZZ Administration Insulin Human Lispro 0 unit 02/25/23 21:03 03/01/23 07:21 Insulin Lispro 100 Unit/1 Ml SUBCUT Not Given WM&BEDTIME LIZZ Protocol Isosorbide Mononitrate 30 mg 02/26/23 09:00 03/01/23 08:23 Isosorbide Mononitrate Er 30 Mg Tablet PO 30 mg DAILY LIZZ Administration Metoprolol Tartrate 25 mg 02/26/23 09:00 03/01/23 08:23 Metoprolol Tartrate 25 Mg Tablet PO 25 mg BID LIZZ Administration Mirtazapine 15 mg 02/25/23 21:03 02/28/23 21:58 Mirtazapine 15 Mg Tablet PO 15 mg BEDTIME LIZZ Administration Nystatin 1 applic 02/26/23 22:30 03/01/23 08:23 Nystatin Cream 30 Gm TOPICAL 1 applic BID LIZZ Administration Ondansetron HCl 4 mg 02/25/23 21:03 03/01/23 08:23 Ondansetron 4 Mg Tablet PO 4 mg Q6H LIZZ Administration Oxycodone HCl 5 mg 02/25/23 21:03 02/27/23 10:17 Oxycodone 5 Mg Ir Tab/Cap PO 5 mg Q4H PRN Administration Pain Pantoprazole Sodium 40 mg 02/28/23 08:15 03/01/23 08:22 Pantoprazole 40 Mg Sdv IVP 40 mg Q12H LIZZ Administration Potassium Chloride 20 meq 02/28/23 09:00 03/01/23 08:23 Potassium Chloride Er 20 Meq Tablet PO 20 meq DAILY LIZZ Administration Quetiapine Fumarate 50 mg 02/25/23 21:03 02/28/23 21:58 Quetiapine 100 Mg Tablet PO 50 mg BEDTIME LIZZ Administration Tamsulosin HCl 0.8 mg 02/26/23 18:00 02/28/23 17:54 Tamsulosin 0.4 Mg Capsule PO 0.8 mg QPM LIZZ Administration [facility] Anesthesia Medical History Hypertension Type 2 diabetes mellitus with hyperglycemia, with long-term current use of insulin Social History Smoking and tobacco status: former smoker Data Anesthesia 03/01/23 08:40 02/28/23 04:37 Short CBC 02/28/23 03/01/23 Range/Units 04:37 08:40 WBC 4.13 5.99 (3.29-11.43) 10^3/uL Hgb 7.90 L 7.80 L (11.27-16.99) g/dL Hct 25.4 L 24.5 L (37-53) % MCV 90.4 89.4 (82-101) fl Plt Count 115 L 129 L (157-399) 10^3/cmm Neut % (Auto) 58.3 69.1 % Neut # (Auto) 2.41 4.14 (1.8-7.7) 10^3/uL BMP 02/28/23 04:37 Sodium 138 Potassium 4.0 Chloride 101 Carbon Dioxide 31 H BUN 40 H Creatinine 1.5 H Glucose 75 Calcium 8.5 Blood Bank 02/25/23 15:25 Blood Type B Positive Rho(D) Type Positive Antibody Screen Negative Coags 02/27/23 12:48 D-Dimer 1.37 H Cardiac Studies: Echocardiogram 02/26/23 Sestamibi Stress Test (Cardiology) 12/14/22
[2023-03-01] MEDS: sodium chloride 0.9% 1,000 ML 30 ML IV (11:02)
--- NOTE | 2023-03-01 11:55 | P.DS_ITS ---
Discharge Providers Date of Admission: 02/26/23 17:04 Date of Discharge: March 01, 2023 Attending Provider at Admission: Manish Ramon Attending Provider at Discharge: Lesley Mitchell MD Primary Care Provider: Wilman Stephen Diagnoses at Discharge Discharge Diagnosis (1) Anemia: Status: Acute (2) GI bleed: Status: Acute Reason for Visit Reason for Visit: LETHARGY Hospital Course Hospital Course 67-year-old male admitted from care home, has intellectual challenges presented to hospital with chief complaint of altered mental status related to UTI he does have chronic suprapubic catheter which was exchanged at the time of admission, he was put on ceftriaxone, cultures remain negative, afebrile, patient's hemoglobin dropped gradually, FOBT positive, patient went for colonoscopy which showed friable rectal mucosa with ulceration and stigmata of bleeding and hemorrhoids, patient required 1 unit PRBC at the time of discharge hemoglobin 7.8, his altered mental status seems secondary to polypharmacy as he is taking opioids, Seroquel, Abilify and gabapentin. Patient went into decompensated heart failure during hospitalization and required diuretics. Lower extremity venous Doppler ruled out DVT echo showed preserved ejection fraction. He does have right foot diabetic foot ulcer, he does get wound care at the care home on weekly basis Physical Exam Narrative: Awake and alert GCS 15 Abdomen soft Pleasant and cooperative Currently on room air Urinary Catheter Management: Suprapubic: Cath Placed During This Visit: yes Reason for Continuing Indwelling Catheter: Chronic Indwelling Urinary Catheter on Admission Urinary Catheter Date of Insertion: 02/25/23 Urinary Catheter Time of Insertion: 22:51 Discharge Data Studies Completed and Pending Completed Studies During Hospitalization Category Date Time Status CT abdomen pelvis w con* [id number] Stat Cat Scan 02/25/23 15:[address] head wo con* [id number] Stat Cat Scan 02/25/23 13:13 Completed CTA PE [CT angio chest PE protcl [id number]] Stat Cat Scan 02/28/23 Completed XR chest 1V portable [id number] Stat Exams 02/25/23 13:13 Completed CV. echo wo/w contrast [id number] Routine Ultrasound 02/26/23 06:00 Completed Pending at discharge Category Date Time Status Blood Culture Stat Lab 02/25/23 13:50 Results C DIFF [Clostridioides Difficile PCR] Routine Lab 02/27/23 09:54 Ordered Stool Culture, Bacterial [Enteric Bacterial Panel by Lab 02/27/23 09:53 Ordered PCR] Routine Pathology: Surgical [PTH] Routine Pth 03/01/23 11:43 [place] [id number] Routine Ultrasound 02/28/23 08:11 Taken Radiology Impressions Chest X-Ray 02/25/23 13:13 IMPRESSION: No acute findings. Head CT 02/25/23 13:13 IMPRESSION: 1. No acute intracranial abnormality. 2. 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 Abdomen/Pelvis CT 02/25/23 15:24 IMPRESSION: 1. New small left pleural effusion. 2. Dependent atelectasis in the lungs bilaterally. 3. Stable indeterminate focus in the liver compared with 06/09/2022. 4. The bladder is decompressed by a suprapubic catheter. 5. Interval development of moderate body wall edema. 6. Incidental/nonacute findings are listed in the report. Chest CTA 02/28/23 00:00 IMPRESSION: 1. Negative for pulmonary embolism. 2. Nonspecific scattered ground-glass pulmonary opacities which are new from comparison. Diagnostic considerations could include pathology such a nonspecific inflammatory pneumonitis, atypical pulmonary edema distribution or atypical infection. Laboratory Results WBC 5.99 10^3/uL (3.29-11.43) 03/01/23 08:40 Corrected WBC Cancelled 02/26/23 05:05 RBC 2.74 10^6/uL (3.85-5.65) L 03/01/23 08:40 Hgb 7.80 g/dL (11.27-16.99) L 03/01/23 08:40 Hct 24.5 % (37-53) L 03/01/23 08:40 MCV 89.4 fl (82-101) 03/01/23 08:40 MCH 28.5 pg (27-33) 03/01/23 08:40 MCHC 31.8 g/dL (30-55) 03/01/23 08:40 RDW 14.9 % (12.1-15.1) 03/01/23 08:40 Plt Count 129 10^3/cmm (157-399) L 03/01/23 08:40 MPV 9.5 fL (7.4-10.4) 03/01/23 08:40 Gran % Cancelled 02/26/23 05:05 Neut % (Auto) 69.1 % 03/01/23 08:40 Lymph % (Auto) 15.5 % 03/01/23 08:40 [place] % (Auto) 12.4 % 03/01/23 08:40 Eos % (Auto) 2.0 % 03/01/23 08:40 Baso % (Auto) 0.5 % 03/01/23 08:40 Reticulocyte % (Auto) 1.9 % (0.5-2.0) 02/25/23 19:01 Neut # (Auto) 4.14 10^3/uL (1.8-7.7) 03/01/23 08:40 Lymph # (Auto) 0.9 10^3/uL (0.8-4.8) 03/01/23 08:40 [place] # (Auto) 0.7 10^3/uL (0.2-0.9) 03/01/23 08:40 Eos # (Auto) 0.1 10^3/uL (0.0-0.8) 03/01/23 08:40 Baso # (Auto) 0.0 10^3/uL (0.0-0.1) 03/01/23 08:40 Absolute Gran (auto) Cancelled 02/26/23 05:05 Nucleated RBC % (auto) 0 % 03/01/23 08:40 Nucleated RBCs # 0.0 /100WBC 03/01/23 08:40 Peripher Smr Path Cons Sent for review 02/25/23 19:01 Retic Production Index 1.26 02/25/23 19:01 Haptoglobin 197.0 mg/L (30-200) 02/25/23 15:15 PT 14.60 SECONDS (12.1-14.9) 02/25/23 13:14 INR 1.10 (0.8-1.2) 02/25/23 13:14 D-Dimer 1.37 ug/mLFEU (0-0.59) H 02/27/23 12:48 Specimen Type Arterial 02/25/23 13:22 Sample Site Radial, left 02/25/23 13:22 ABG pH 7.44 (7.35-7.45) 02/25/23 13:22 ABG pCO2 40.4 mmHg (35-45) 02/25/23 13:22 ABG pO2 89.6 mmHg (80.0-100.0) 02/25/23 13:22 ABG HCO3 27.3 mmol/L (22-26) H 02/25/23 13:22 ABG Base Excess 2.9 mmol/L (-2.0-2.0) H 02/25/23 13:22 [place] Test Pos 02/25/23 13:22 Hematocrit 23.4 % (42-52) L 02/25/23 13:22 Hgb O2 Saturation 96.1 % (95-100) 02/25/23 13:22 Carboxyhemoglobin 1.4 %THgb (0.4-20.1) 02/25/23 13:22 Methemoglobin 0.6 % (0.4-1.5) 02/25/23 13:22 Total Hemoglobin 7.6 g/dL (14-18) L 02/25/23 13:22 O2 Delivery Device Nc 02/25/23 13:22 O2 Liters/Min 2.0 % 02/25/23 13:22 FiO2 28.0 % 02/25/23 13:22 Science Instructor ID Cak 02/25/23 13:22 Sodium 138 mmol/L (136-145) 02/28/23 04:37 Potassium 4.0 mmol/L (3.5-5.1) 02/28/23 04:37 Chloride 101 mmol/L (98-107) 02/28/23 04:37 Carbon Dioxide 31 mmol/L (22-29) H 02/28/23 04:37 Anion Gap 10.0 (5-19) 02/28/23 04:37 BUN 40 mg/dL (8-23) H 02/28/23 04:37 Creatinine 1.5 mg/dL (0.7-1.2) H 02/28/23 04:37 GFR Calculation 46.5 mL/min (90-130) L 02/28/23 04:37 Glucose 75 mg/dL (65-115) 02/28/23 04:37 POC Glucose 85 mg/dL (70-110) 03/01/23 06:23 Calculated Osmolality 294 mOsm/kg (285-295) 02/28/23 04:37 Lactic Acid 0.6 mmol/L (0.5-2.2) 02/25/23 13:14 Calcium 8.5 mg/dL (8.5-10.5) 02/28/23 04:37 Magnesium 1.8 mg/dL (1.7-2.3) 02/26/23 05:05 Iron 16 ug/dL (59-158) L 02/25/23 15:15 TIBC 201 mcg/dl 02/25/23 15:15 % Saturation 7.9 % (20-50) L 02/25/23 15:15 Unsat Iron Binding 185 ug/dL (112-347) 02/25/23 15:15 Ferritin 575 ng/mL (30-400) H 02/25/23 15:15 Total Bilirubin 0.7 mg/dL (0.15-1.2) 02/25/23 13:14 AST 13 U/L (0-40) 02/25/23 13:14 ALT 16 U/L (0-41) 02/25/23 13:14 Alkaline Phosphatase 120 U/L (40-130) 02/25/23 13:14 Lactate Dehydrogenase 153 U/L (135-225) 02/25/23 15:15 Troponin T Baseline 63 ng/L (0-15) H 02/25/23 13:14 Troponin T 120 Minute 62.36 ng/L (0-15) H 02/25/23 15:15 Delta Troponin T -0.64 ABS# (0-10) L 02/25/23 15:15 Troponin T Hi Sens 6Hr 67.73 ng/L (0-15) H 02/25/23 19:01 Troponin T Hi Sens 6Hr Delta 4.73 ng/L (0-12) 02/25/23 19:01 NT-Pro-B Natriuret Pep 787 pg/mL (0-125) H 02/25/23 13:14 Total Protein 5.7 g/dL (6.6-8.7) L 02/25/23 13:14 Albumin 2.8 g/dL (3.5-5.2) L 02/25/23 13:14 Globulin 2.9 g/dL (1.3-4.6) 02/25/23 13:14 TSH 2.87 uIU/mL (0.27-4.20) 02/25/23 19:01 Urine Color Yellow (Yellow) 02/25/23 14:44 Urine Appearance Hazy (CLEAR) A 02/25/23 14:44 Urine pH 5 (5-7) 02/25/23 14:44 Ur Specific [place] 1.015 (1.005-1.030) 02/25/23 14:44 Urine Protein 1+ (Negative) H 02/25/23 14:44 Urine Glucose (UA) Norm (Normal) 02/25/23 14:44 Urine Ketones Negative (Negative) 02/25/23 14:44 Urine Blood 3+ (Negative) H 02/25/23 14:44 Urine Nitrate Negative (Negative) 02/25/23 14:44 Urine Bilirubin Neg (Negative) 02/25/23 14:44 Urine Urobilinogen Norm mg/dL (Negative) 02/25/23 14:44 Ur Leukocyte Esterase 2+ (Negative) H 02/25/23 14:44 Urine RBC 15-25 /hpf (0-2) H 02/25/23 14:44 Urine WBC 25-40 /hpf (0-5) H 02/25/23 14:44 Ur Squamous Epith Cells None /hpf (0-5) 02/25/23 14:44 Amorphous Sediment Not Reportable 02/25/23 14:44 Urine Bacteria 1+ /hpf (NONE) H 02/25/23 14:44 SARS-CoV-2 Ag (Rapid) negative (Negative) 02/25/23 15:11 Blood Type B Positive 02/25/23 15:25 Rho(D) Type Positive 02/25/23 15:25 Antibody Screen Negative 02/25/23 15:25 Crossmatch See Detail 02/25/23 15:25 Vitals Last Vital Signs Temp 99 F 03/01/23 11:47 Pulse 65 03/01/23 11:47 Resp 18 03/01/23 11:47 BP 111/60 03/01/23 11:47 Pulse Ox 97 03/01/23 11:47 O2 Del Method Room Air 03/01/23 11:47 O2 Flow Rate 3 03/01/23 10:48 Discharge Plan Discharge Patient Disposition: Xfer SNF Condition: Stable Prescriptions: New Klor-Con M20 20 mEq Tablet,Er Particles/Crystals 20 meq PO DAILY Qty: 30 0RF Continued atorvastatin 40 mg tablet 40 mg PO QPM donepezil 10 mg tablet 10 mg PO BEDTIME tamsulosin 0.4 mg capsule 0.8 mg PO QPM mupirocin 2 % ointment 1 applic TOPICAL . DIRECTED mirtazapine 15 mg tablet 15 mg PO BEDTIME aripiprazole 10 mg tablet 10 mg PO DAILY insulin aspart U-100 [Novolog FlexPen U-100 Insulin] 100 unit/mL (3 mL) insulin pen See Rx Instructions .ROUTE .COMPLEX Rx Instructions: 5 units subcutaneously with meals and at bedtime insulin glargine [Lantus Solostar U-100 Insulin] 100 unit/mL (3 mL) insulin pen 35 unit SUBCUT BID Tradjenta 5 mg tablet 5 mg PO DAILY ondansetron HCl 4 mg tablet 4 mg PO Q6H oxycodone 5 mg tablet 5 mg PO Q4H PRN (Reason: Pain) cholecalciferol (vitamin D3) [Vitamin D3] 50 mcg (2,000 unit) Capsule 50 mcg PO DAILY acetaminophen 325 mg Tablet 650 mg PO QID PRN (Reason: Pain) magnesium hydroxide [Milk of Magnesia] 400 mg/5 mL Suspension 30 ml PO BID PRN (Reason: Constipation) isosorbide mononitrate 30 mg tablet extended release 24 hr 30 mg PO DAILY Qty: 30 0RF Dulcolax (bisacodyl) 10 mg Suppository 10 mg DE DAILY PRN (Reason: Constipation) Dulcolax (bisacodyl) 5 mg Tablet,Delayed Release (Dr/Ec) 20 mg PO DAILY PRN (Reason: Constipation) metoprolol tartrate 25 mg tablet 25 mg PO BID duloxetine 20 mg capsule,delayed release(DR/EC) 20 mg PO BID melatonin 3 mg Capsule 3 mg PO BEDTIME loperamide 2 mg Capsule 4 mg PO Q4H PRN (Reason: Diarrhea) Rx Instructions: administer after each loose stool until symptoms controlled; do not exceed 8 mg per 24 hrs guaifenesin 100 mg/5 mL Liquid 200 mg PO Q4H PRN (Reason: Cough) dicyclomine 20 mg tablet 20 mg PO QID PRN (Reason: Cramps) magnesium citrate Solution 150 ml PO DAILY PRN (Reason: Constipation) alum-mag hydroxide-simeth 200-200-20 mg/5 mL Suspension 30 ml PO QID PRN (Reason: Indigestion) Rx Instructions: administer between meals and at bedtime furosemide 40 mg Tablet 40 mg PO DAILY Qty: 60 0RF Changed famotidine 20 mg tablet 40 mg PO DAILY Qty: 60 0RF pantoprazole 40 mg tablet,delayed release (DR/EC) 40 mg PO BIDWMEAL Qty: 60 0RF gabapentin 100 mg capsule 100 mg PO DAILY Qty: 30 0RF Discontinued quetiapine 100 mg tablet 100 mg PO BEDTIME aspirin 81 mg Tablet,Delayed Release (Dr/Ec) 81 mg PO DAILY promethazine 25 mg tablet 25 mg PO Q6H PRN (Reason: nausea and vomiting) Qty: 20 0RF Discharge Orders: Discharge Order (Routine); Ordered 03/01/23 Ordered By: Lesley Mitchell Referrals: Wilman Stephen [Primary Care Provider] - Discharge Diet: Cardiac Patient Instructions: Potassium Chloride (By mouth), Gastrointestinal Bleeding (GEN), GI Discharge Instructions, Opioid Safety Discharge Attestations Time Spent in Discharge Care*: greater than 30 min Quality Metrics Clinical Quality Measures [ No reported AMI, CVA or VTE this stay] Coding Level of Care Code Acute Code for Chg Fwd Diagnoses Anemia D64.9 GI bleed K92.2
--- NOTE | 2023-03-01 11:55 | ANE.PACU2 ---
Inpatient post-anesthesia follow up: Airway intact: Yes Vital signs: Temperature 98.0 F Pulse Rate 68 Respiratory Rate 16 Blood Pressure 114/70 Pulse Oximetry 95 Oxygen Delivery Me thod Nasal Cannula Oxygen Flow Rate 3 Fraction of Inspir ed Oxygen Hydration adequate: Yes Nausea and vomiting: No Pain level: 1 Mental status: Baseline
[2023-03-01 17:46] LABS: SARS Covid-2 Antigen negative (Negative)
== END 2023-03-01 14:55 | disposition skilled nursing facility (03) | DRG 393 ==
LOC: ER 17:56 → MEDSURG 19:20
PROVIDERS: Surgery; Admitting Provider Internal Medicine; Emergency Provider Nurse Practitioner; PCP Student in an Organized Health Care Education/Training Program; Visit Provider Internal Medicine
PROC: 0DJ08ZZ Inspection of Upper Intestinal Tract, Via Natural or Artificial Opening Endoscopic (ICD-10-PCS; CPT 43235; principal; 2023-03-01 10:45)
PROC: 0DJD8ZZ Inspection of Lower Intestinal Tract, Via Natural or Artificial Opening Endoscopic (ICD-10-PCS; CPT 45378; 2023-03-01 10:45)
DX: K62.6 Ulcer of anus and rectum (principal); G92.8 Other toxic encephalopathy; I50.33 Acute on chronic diastolic (congestive) heart failure; I13.0 Hypertensive heart and chronic kidney disease with heart failure and stage 1 through stage 4 chronic kidney disease, or unspecified chronic kidney disease; K62.5 Hemorrhage of anus and rectum; N39.0 Urinary tract infection, site not specified; N17.9 Acute kidney failure, unspecified; Z68.42 Body mass index [BMI] 45.0-49.9, adult; I24.8 Other forms of acute ischemic heart disease; N18.9 Chronic kidney disease, unspecified; E11.22 Type 2 diabetes mellitus with diabetic chronic kidney disease; K64.8 Other hemorrhoids; Z93.6 Other artificial openings of urinary tract status; E11.621 Type 2 diabetes mellitus with foot ulcer; L97.519 Non-pressure chronic ulcer of other part of right foot with unspecified severity; Z79.4 Long term (current) use of insulin; Z79.891 Long term (current) use of opiate analgesic; D69.6 Thrombocytopenia, unspecified; E11.65 Type 2 diabetes mellitus with hyperglycemia; Z87.891 Personal history of nicotine dependence; T50.915A Adverse effect of multiple unspecified drugs, medicaments and biological substances, initial encounter; D50.9 Iron deficiency anemia, unspecified; E66.01 Morbid (severe) obesity due to excess calories; M48.062 Spinal stenosis, lumbar region with neurogenic claudication; Z86.73 Personal history of transient ischemic attack (TIA), and cerebral infarction without residual deficits; I87.2 Venous insufficiency (chronic) (peripheral)
CPT/HCPCS: 36415; 36416; 36430; 36600; 70450; 71045; 71275; 74177; 80048; 80053; 80503; 81001; 82274; 82728; 82805; 82962; 83010; 83540; 83550; 83605; 83615; 83735; 83880; 84443; 84484; 85014; 85025; 85045; 85378; 85610; 86850; 86900; 86920; 87040; 87086; 87426; 88305; 88342; 93005; 93970; 96365; 96372; 99285; C8929; C9113; G0378; J0696; J1644; J1756; J1815; J1940; J2704; J3490; J7030; J7040; P9016; Q0162; Q9956; Q9967